=== PATIENT | female | born 1940 | race Caucasian/White ===

== ENCOUNTER 2018-05-09 20:35 | Inpatient (IN) | payer MEDICARE, BC ==
[~2018-05-09] VITALS: Ht 162.6 cm; Wt 123.0 kg
[~2018-05-09 20:35] MED LIST: AZIT250T82 PO
[2018-05-09] MEDS ORDERED: temazepam 15mg capsule PO PRN (21:00)
[2018-05-09] MEDS ORDERED: SPIR100T5 PO (21:09)
[2018-05-09] MEDS ORDERED: POTA20TA10 PO (21:09)
[2018-05-09] MEDS ORDERED: lidocaine 5% (21:09)
[2018-05-09] MEDS ORDERED: FLUO20CA39 PO (21:09)
[2018-05-09] MEDS ORDERED: TRAZ300T2 PO (21:09)
[2018-05-09] MEDS ORDERED: SIMV20TA5 PO (21:09)
[2018-05-09] MEDS ORDERED: ACET-3067 PO (21:09)
[2018-05-09] MEDS ORDERED: PANT40TA4 PO (21:09)
[2018-05-09] MEDS ORDERED: FURO-150 PO (21:09)
[2018-05-09] MEDS ORDERED: HYDROcodone/acetaminophen 10/325mg tab PO ONE ×2 (21:15→22:10)
[2018-05-09] MEDS ORDERED: morphine 4 MG/ML inj SYRINge IV ONE (21:15)
[2018-05-09 21:21] LABS: BASOPHILS # (AUTO) 0.1 X10'3 (0-0.2); BASOPHILS % (AUTO) 0.6 % (0-1); EOSINOPHILS % (AUTO) 0.5 % (0-6); HEMATOCRIT 31.3 % (35.0-45.0); HEMOGLOBIN 10.6 g/dl (12.0-16.0); LYMPHOCYTES # (AUTO) 2.1 X10'3 (1.1-4.8); LYMPHOCYTES % (AUTO) 23.8 % (21-51); MEAN CORPUSCULAR HEMOGLOBIN 30.1 PG (27.0-31.0); MEAN CORPUSCULAR VOLUME 88.7 FL (78-98); MEAN PLATELET VOLUME 8.5 FL (7.4-10.4); MONOCYTES # (AUTO) 0.8 X10'3 (0-0.9); MONOCYTES % (AUTO) 8.8 % (2-12); NEUTROPHILS # (AUTO) 5.9 X10'3 (1.8-7.7); NEUTROPHILS % (AUTO) 66.3 % (42-75); PLATELET COUNT 162 X10'3 (140-440); RED BLOOD COUNT 3.53 X10'6 (4.20-5.60); RED CELL DISTRIBUTION WIDTH 12.8 % (11.5-14.5); WHITE BLOOD COUNT 8.9 X10'3 (4.5-11.0)
[2018-05-09 21:32] LABS: ALANINE AMINOTRANSFERASE 22 U/L (12-78); ALBUMIN 3.4 G/DL (3.4-5.0); ALBUMIN/GLOBULIN RATIO 0.9 (1.1-1.5); ALKALINE PHOSPHATASE 113 IU/L (46-116); ANION GAP 7 (8-16); ASPARTATE AMINO TRANSFERASE 15 U/L (10-37); BILIRUBIN,TOTAL 0.3 MG/DL (0.1-1.0); BLOOD UREA NITROGEN 17 MG/DL (7-18); BUN/CREATININE RATIO 13.4 (6.6-38.0); CALCIUM 9.2 MG/DL (8.5-10.1); CHLORIDE 100 MMOL/L (99-107); CREATININE 1.27 MG/DL (0.40-0.90); GLUCOSE 122 MG/DL (70-104); POTASSIUM 3.6 MMOL/L (3.5-5.1); SODIUM 141 MMOL/L (135-145); TOTAL CARBON DIOXIDE 34.1 MMOL/L (24-32); TOTAL PROTEIN 7.1 G/DL (6.4-8.2); eGFR 41 ML/MIN
[2018-05-09 21:41] LABS: MAGNESIUM 1.6 MG/DL (1.5-2.4)
[2018-05-09 22:19] LABS: D-DIMER 4.26 MG/L FEU (0-0.50)
[2018-05-09] MEDS ORDERED: acetaminophen 650mg rectal suppository RC PRN (23:40)
[2018-05-09] MEDS ORDERED: HYDROmorphone 1 mg/ml syringe IV PRN ×2 (23:40)
[2018-05-09] MEDS ORDERED: mag hydrox/Alum hydrox/simeth 30ml oral suspension PO PRN (23:40)
[2018-05-09] MEDS ORDERED: diphenhydrAMINE 25mg capsule PO PRN (23:40)
[2018-05-09] MEDS ORDERED: ondansetron/PF 4mg/2ml inj IV PRN (23:40)
[2018-05-09] MEDS ORDERED: bisacodyl 10mg suppository rectal RC PRN (23:40)
[2018-05-09] MEDS ORDERED: magnesium 4gm in 100ml NS 100 ML IV PRN (23:40)
[2018-05-09] MEDS ORDERED: magnesium Cl slow-release 64mg tablet PO PRN (23:40)
[2018-05-09] MEDS ORDERED: metoclopramide 5 mg/ml inj IV PRN (23:40)
[2018-05-09] MEDS ORDERED: magnesium hydroxide 30ml (MOM) UD suspension PO PRN (23:40)
[2018-05-09] MEDS ORDERED: diphenhydrAMINE 50 mg/ml inj IV PRN (23:40)
[2018-05-09] MEDS ORDERED: acetaminophen 325mg tablet PO PRN ×2 (23:40)
[2018-05-09] MEDS ORDERED: magnesium 1gm/100ml D5W IVPB 100 ML IV PRN (23:40)
[2018-05-09] MEDS ORDERED: morphine 2 MG/ML inj. syringe IV PRN ×2 (23:40)
[2018-05-10] MEDS: LIDOcaine 5% patch TP SCH ×2 (00:09→23:50)
[2018-05-10] MEDS: normal saline 1000ml 1,000 ML IV SCH (00:09)
[2018-05-10 00:11] LABS: HEMOGLOBIN A1C 5.3 % (4.5-6.2)
[2018-05-10 00:18] LABS: LIPASE 144 U/L (73-393); PHOSPHORUS 3.5 MG/DL (2.3-4.5)
[2018-05-10 01:45] VITALS: BP 139/52
[2018-05-10] MEDS: HYDROcodone/acetaminophen 5mg/325mg tablet PO PRN ×3 (01:52→19:27)
[2018-05-10] MEDS ORDERED: enoxaparin 60mg/0.6ml syringe SUBCUT ONE ×2 (01:55→02:00)
[2018-05-10] MEDS ORDERED: acetaminophen w/codeine (60MG) #4 tablet PO SCH (02:00)
[2018-05-10 05:37] LABS: CHOL/HDL RATIO 2.2 (0.00-4.99); CHOLESTEROL 170 MG/DL (0-200); HDL CHOLESTEROL 78 MG/DL (35-60); LDL CHOLESTEROL 82 MG/DL (50-100); MAGNESIUM 1.8 MG/DL (1.5-2.4); TRIGLYCERIDES 39 MG/DL (20-135)
[2018-05-10 07:00] VITALS: BP 112/56
[2018-05-10] MEDS ORDERED: methylPREDNISolone sod succ 125mg/2ml vial IV SCH (08:00)
[2018-05-10] MEDS: CefTRIAXone/D5W-Rocephin 1gm 50 ML IV SCH ×2 (08:03→19:26)
[2018-05-10] MEDS: pantoprazole 40mg Tablet.DR PO SCH (08:05)
[2018-05-10] MEDS: docusate sod 100mg capsule PO SCH ×2 (08:05→19:27)
[2018-05-10] MEDS: FLUoxetine 20mg capsule PO SCH (08:06)
[2018-05-10] MEDS: aspirin 81mg tab.chew PO SCH (08:06)
[2018-05-10] MEDS: HYDROcodone/acetaminophen 10/325mg tab PO PRN (08:07)
[2018-05-10] MEDS: azithromycin/NS 500mg/250ml 250 ML IV SCH (08:49)
[2018-05-10 12:31] VITALS: BP 123/55
[2018-05-10] MEDS: ipratropium/albuterol 3ml nebule NEB SCH ×3 (15:05→23:17)
[2018-05-10 18:00] VITALS: BP 134/62
[2018-05-10] MEDS: lactobacillus rhamnosus 10,000 MMU CELLS/CAPSULE PO SCH (19:27)
[2018-05-10] MEDS: methylPREDNISolone sod succ 125mg/2ml vial IV SCH (19:28)
[2018-05-10] MEDS: atorvastatin 10mg tablet PO SCH (20:44)
[2018-05-10] MEDS: traZODone 150mg tablet PO SCH (22:06)
[2018-05-11] VITALS: BP 113/50
[2018-05-11] MEDS: HYDROcodone/acetaminophen 10/325mg tab PO PRN ×2 (01:00→14:24)
[2018-05-11] MEDS: ipratropium/albuterol 3ml nebule NEB SCH ×6 (03:00→23:02)
[2018-05-11] MEDS: HYDROcodone/acetaminophen 5mg/325mg tablet PO PRN (05:04)
[2018-05-11 07:00] VITALS: BP 143/53
[2018-05-11] MEDS: CefTRIAXone/D5W-Rocephin 1gm 50 ML IV SCH ×2 (07:30→20:05)
[2018-05-11] MEDS: azithromycin/NS 500mg/250ml 250 ML IV SCH (08:54)
[2018-05-11] MEDS: pantoprazole 40mg Tablet.DR PO SCH (09:00)
[2018-05-11] MEDS: lactobacillus rhamnosus 10,000 MMU CELLS/CAPSULE PO SCH ×2 (09:01→20:03)
[2018-05-11] MEDS: FLUoxetine 20mg capsule PO SCH (09:01)
[2018-05-11] MEDS: docusate sod 100mg capsule PO SCH ×2 (09:01→20:03)
[2018-05-11] MEDS: methylPREDNISolone sod succ 125mg/2ml vial IV SCH ×2 (09:03→20:05)
[2018-05-11] MEDS: aspirin 81mg tab.chew PO SCH (09:04)
[2018-05-11 12:03] VITALS: BP 131/53
[2018-05-11 20:00] VITALS: BP 112/37
[2018-05-11] MEDS: atorvastatin 10mg tablet PO SCH (20:04)
[2018-05-11] MEDS: traZODone 150mg tablet PO SCH (20:04)
[2018-05-11 20:20] VITALS: BP 134/54
[2018-05-11] MEDS: LIDOcaine 5% patch TP SCH (23:16)
[2018-05-11] MEDS: normal saline 1000ml 1,000 ML IV SCH (23:36)
[2018-05-12] VITALS: BP 123/41
[2018-05-12] MEDS: ipratropium/albuterol 3ml nebule NEB SCH ×6 (03:02→23:07)
[2018-05-12] MEDS: normal saline 1000ml 1,000 ML IV SCH (03:31)
[2018-05-12 05:14] LABS: BASOPHILS % (AUTO) 0.1 % (0-1); EOSINOPHILS # (AUTO) 0.1 X10'3 (0-0.9); HEMATOCRIT 28.4 % (35.0-45.0); HEMOGLOBIN 9.2 g/dl (12.0-16.0); LYMPHOCYTES # (AUTO) 0.6 X10'3 (1.1-4.8); LYMPHOCYTES % (AUTO) 8.5 % (21-51); MEAN CORPUSCULAR HEMOGLOBIN 28.9 PG (27.0-31.0); MEAN CORPUSCULAR HGB CONC 32.3 % (33.0-36.5); MEAN CORPUSCULAR VOLUME 89.4 FL (78-98); MEAN PLATELET VOLUME 8.7 FL (7.4-10.4); MONOCYTES # (AUTO) 0.2 X10'3 (0-0.9); MONOCYTES % (AUTO) 2.2 % (2-12); NEUTROPHILS # (AUTO) 6.6 X10'3 (1.8-7.7); NEUTROPHILS % (AUTO) 88.2 % (42-75); PLATELET COUNT 185 X10'3 (140-440); RED BLOOD COUNT 3.18 X10'6 (4.20-5.60); RED CELL DISTRIBUTION WIDTH 13.7 % (11.5-14.5); WHITE BLOOD COUNT 7.5 X10'3 (4.5-11.0)
[2018-05-12 05:32] LABS: ALBUMIN 2.7 G/DL (3.4-5.0); ANION GAP 7 (8-16); BLOOD UREA NITROGEN 23 MG/DL (7-18); CALCIUM 8.8 MG/DL (8.5-10.1); CHLORIDE 103 MMOL/L (99-107); GLUCOSE 161 MG/DL (70-104); MAGNESIUM 1.8 MG/DL (1.5-2.4); SODIUM 141 MMOL/L (135-145); TOTAL CARBON DIOXIDE 30.7 MMOL/L (24-32); eGFR 54 ML/MIN
[2018-05-12 07:11] VITALS: BP 125/44
[2018-05-12] MEDS: CefTRIAXone/D5W-Rocephin 1gm 50 ML IV SCH ×2 (07:16→20:46)
[2018-05-12] MEDS: methylPREDNISolone sod succ 125mg/2ml vial IV SCH ×2 (07:16→20:46)
[2018-05-12] MEDS: docusate sod 100mg capsule PO SCH ×2 (07:47→20:00)
[2018-05-12] MEDS: pantoprazole 40mg Tablet.DR PO SCH (07:48)
[2018-05-12] MEDS: lactobacillus rhamnosus 10,000 MMU CELLS/CAPSULE PO SCH ×2 (07:48→20:43)
[2018-05-12] MEDS: FLUoxetine 20mg capsule PO SCH (07:49)
[2018-05-12] MEDS: aspirin 81mg tab.chew PO SCH (07:49)
[2018-05-12] MEDS: azithromycin 250mg tablet PO SCH (07:50)
[2018-05-12] MEDS: emollient combination-Eucerin 250 ML LOTION TP SCH (08:00)
[2018-05-12 11:00] VITALS: BP 144/58
[2018-05-12] MEDS: HYDROcodone/acetaminophen 10/325mg tab PO PRN ×2 (14:35→20:43)
[2018-05-12 20:00] VITALS: BP 137/62
[2018-05-12] MEDS: atorvastatin 10mg tablet PO SCH (20:43)
[2018-05-12] MEDS: traZODone 150mg tablet PO SCH (20:44)
[2018-05-12] MEDS: heparin, porcine 5000 units/ml vial SQ SCH (20:45)
[2018-05-13] VITALS: BP 131/50
[2018-05-13] MEDS: LIDOcaine 5% patch TP SCH (00:05)
[2018-05-13] MEDS: ipratropium/albuterol 3ml nebule NEB SCH ×3 (03:00→11:29)
[2018-05-13] MEDS: HYDROcodone/acetaminophen 10/325mg tab PO PRN ×2 (03:23→09:30)
[2018-05-13] MEDS: normal saline 1000ml 1,000 ML IV SCH (03:24)
[2018-05-13 07:28] VITALS: BP 150/64
[2018-05-13] MEDS: emollient combination-Eucerin 250 ML LOTION TP SCH (08:00)
[2018-05-13] MEDS: docusate sod 100mg capsule PO SCH (08:00)
[2018-05-13] MEDS: methylPREDNISolone sod succ 125mg/2ml vial IV SCH (09:30)
[2018-05-13] MEDS: heparin, porcine 5000 units/ml vial SQ SCH (09:31)
[2018-05-13] MEDS: aspirin 81mg tab.chew PO SCH (09:31)
[2018-05-13] MEDS: azithromycin 250mg tablet PO SCH (09:32)
[2018-05-13] MEDS: CefTRIAXone/D5W-Rocephin 1gm 50 ML IV SCH (09:32)
[2018-05-13] MEDS: pantoprazole 40mg Tablet.DR PO SCH (09:32)
[2018-05-13] MEDS: FLUoxetine 20mg capsule PO SCH (09:32)
[2018-05-13] MEDS: lactobacillus rhamnosus 10,000 MMU CELLS/CAPSULE PO SCH (09:32)
[2018-05-13 11:34] VITALS: BP 131/60
[2018-05-13] MEDS ORDERED: LEVO500T2 PO (14:26)
[2018-05-13] MEDS ORDERED: PRED20TA PO (14:26)
== END 2018-05-13 16:07 | disposition home health service (06) | DRG 682 ==
LOC: ER 20:36 → ED HOLD 23:36 → SUR 3N 05-10 01:25
PROVIDERS: ADMIT Family Medicine; ATTEND Family Medicine
PROC: CB221ZZ Tomographic (Tomo) Nuclear Medicine Imaging of Lungs and Bronchi using Technetium 99m (Tc-99m) (ICD-10-PCS; principal; 2018-05-10)
DX: N17.9 Acute kidney failure, unspecified (principal); J18.9 Pneumonia, unspecified organism; J44.0 Chronic obstructive pulmonary disease with (acute) lower respiratory infection; J44.1 Chronic obstructive pulmonary disease with (acute) exacerbation; I50.32 Chronic diastolic (congestive) heart failure; J96.11 Chronic respiratory failure with hypoxia; Z68.42 Body mass index [BMI] 45.0-49.9, adult; F32.9 Major depressive disorder, single episode, unspecified; F41.9 Anxiety disorder, unspecified; G89.29 Other chronic pain; E66.01 Morbid (severe) obesity due to excess calories; E78.5 Hyperlipidemia, unspecified; M19.90 Unspecified osteoarthritis, unspecified site; M54.9 Dorsalgia, unspecified; E78.00 Pure hypercholesterolemia, unspecified; Z90.49 Acquired absence of other specified parts of digestive tract; Z90.2 Acquired absence of lung [part of]; Z90.710 Acquired absence of both cervix and uterus; Z99.81 Dependence on supplemental oxygen; Z91.040 Latex allergy status; Z91.018 Allergy to other foods; Z91.048 Other nonmedicinal substance allergy status; Z79.899 Other long term (current) drug therapy; Z85.118 Personal history of other malignant neoplasm of bronchus and lung; Z87.891 Personal history of nicotine dependence
CPT/HCPCS: 36415; 71045; 71250; 74176; 78582; 80048; 80053; 80061; 83036; 83690; 83735; 83880; 84100; 84443; 84484; 85025; 85379; 87070; 93005; 93306; 94640; 94760; 96374; 99285; A9539; A9540; J0456; J0696; J1644; J1650; J2270; J2930; J7030

== ENCOUNTER 2019-03-20 11:06 | Emergency (ER) | payer MEDICARE, BC ==
[~2019-03-20] VITALS: Ht 160 cm; Wt 109.0 kg
[~2019-03-20 11:06] MED LIST changes: +ACET-3067 PO; +AZI25OT PO; -AZIT250T82 PO; +BIMA2.5D EACHEYE; +CHOL100046 PO; +FLUO20CA39 PO; +FURO-150 PO; +IPRA3AMP9 NEB; +LIDO700A47 TOP; +PANT40TA4 PO; +POTA20TA10 PO; +SIMV20TA5 PO; +TRAZ300T2 PO
[2019-03-20 11:51] LABS: BASOPHILS # (AUTO) 0.1 X10'3 (0-0.2); BASOPHILS % (AUTO) 0.7 % (0-1); EOSINOPHILS # (AUTO) 0.3 X10'3 (0-0.9); EOSINOPHILS % (AUTO) 2.7 % (0-6); HEMATOCRIT 33.3 % (35.0-45.0); HEMOGLOBIN 10.9 g/dl (12.0-16.0); LYMPHOCYTES # (AUTO) 2.1 X10'3 (1.1-4.8); MEAN CORPUSCULAR HEMOGLOBIN 28.6 PG (27.0-31.0); MEAN CORPUSCULAR HGB CONC 32.6 g/dL (33.0-36.5); MEAN CORPUSCULAR VOLUME 87.5 FL (78-98); MEAN PLATELET VOLUME 7.5 FL (7.4-10.4); MONOCYTES # (AUTO) 0.8 X10'3 (0-0.9); MONOCYTES % (AUTO) 7.8 % (2-12); NEUTROPHILS # (AUTO) 6.4 X10'3 (1.8-7.7); NEUTROPHILS % (AUTO) 66.8 % (42-75); PLATELET COUNT 198 X10'3 (140-440); RED BLOOD COUNT 3.81 X10'6 (4.20-5.60); RED CELL DISTRIBUTION WIDTH 15.2 % (11.5-14.5); WHITE BLOOD COUNT 9.6 X10'3 (4.5-11.0)
[2019-03-20 12:03] LABS: ALANINE AMINOTRANSFERASE 26 U/L (12-78); ALBUMIN 2.8 G/DL (3.4-5.0); ALBUMIN/GLOBULIN RATIO 0.8 (1.1-1.5); ALKALINE PHOSPHATASE 91 IU/L (46-116); ANION GAP 4 (8-16); ASPARTATE AMINO TRANSFERASE 10 U/L (10-37); BILIRUBIN,TOTAL 0.2 MG/DL (0.1-1.0); BLOOD UREA NITROGEN 14 MG/DL (7-18); BUN/CREATININE RATIO 15.4 (6.6-38.0); CALCIUM 9.4 MG/DL (8.5-10.1); CHLORIDE 105 MMOL/L (99-107); CREATININE 0.91 MG/DL (0.40-0.90); GLUCOSE 95 MG/DL (70-104); POTASSIUM 4.2 MMOL/L (3.5-5.1); SODIUM 141 MMOL/L (135-145); TOTAL CARBON DIOXIDE 31.6 MMOL/L (24-32); TOTAL PROTEIN 6.3 G/DL (6.4-8.2); eGFR 60 ML/MIN
[2019-03-20 12:12] LABS: PARTIAL THROMBOPLASTIN TIME 26 SECONDS (22-32)
[2019-03-20] MEDS ORDERED: methylPREDNISolone sod succ 125mg/2ml vial IV ONE (12:25)
[2019-03-20] MEDS ORDERED: ipratropium/albuterol 3ml nebule NEB ONE (12:25)
[2019-03-20 12:44] LABS: D-DIMER 1.08 MG/L FEU (0-0.50)
[2019-03-20] MEDS ORDERED: SPIR100T5 PO (13:46)
[2019-03-20] MEDS ORDERED: FURO-149 PO (13:46)
[2019-03-20 13:55] VITALS: BP 110/48
[2019-03-20] MEDS ORDERED: PRE5T PO (13:55)
[2019-03-20] MEDS ORDERED: PRED20TA PO (14:23)
[2019-03-20] MEDS ORDERED: DOXY100C43 PO (14:23)
[2019-03-20] MEDS ORDERED: HYDROcodone/acetaminophen 10/325mg tab PO ONE (14:25)
== END 2019-03-20 15:11 | disposition home or self-care (01) ==
LOC: ER 11:06
DX: R04.2 Hemoptysis (principal); R07.89 Other chest pain; I50.9 Heart failure, unspecified; E78.00 Pure hypercholesterolemia, unspecified; J44.9 Chronic obstructive pulmonary disease, unspecified; M19.90 Unspecified osteoarthritis, unspecified site; G89.29 Other chronic pain; C34.90 Malignant neoplasm of unspecified part of unspecified bronchus or lung; F41.9 Anxiety disorder, unspecified; F32.9 Major depressive disorder, single episode, unspecified; Z90.49 Acquired absence of other specified parts of digestive tract; Z90.710 Acquired absence of both cervix and uterus; Z98.890 Other specified postprocedural states; Z87.891 Personal history of nicotine dependence; Z91.040 Latex allergy status; Z79.2 Long term (current) use of antibiotics; Z79.899 Other long term (current) drug therapy
CPT/HCPCS: 36415; 71045; 80053; 83880; 84145; 84484; 85025; 85379; 85610; 85730; 93005; 94640; 94760; 96374; 99284; J2930

== ENCOUNTER 2019-03-22 11:37 | Inpatient (IN) | payer MEDICARE, BC ==
[~2019-03-22] VITALS: Ht 160 cm; Wt 109.0 kg
[~2019-03-22 11:37] MED LIST changes: -AZI25OT PO; +DOXY100C43 PO; +FURO-149 PO; -FURO-150 PO; -IPRA3AMP9 NEB; +PRE5T PO; +PRED20TA PO; +SPIR100T5 PO
[2019-03-22 12:25] LABS: BASOPHILS % (AUTO) 0.2 % (0-1); EOSINOPHILS # (AUTO) 0.1 X10'3 (0-0.9); EOSINOPHILS % (AUTO) 0.6 % (0-6); HEMATOCRIT 34.4 % (35.0-45.0); HEMOGLOBIN 11.1 g/dl (12.0-16.0); LYMPHOCYTES # (AUTO) 1.1 X10'3 (1.1-4.8); LYMPHOCYTES % (AUTO) 7.9 % (21-51); MEAN CORPUSCULAR HEMOGLOBIN 27.9 PG (27.0-31.0); MEAN CORPUSCULAR HGB CONC 32.1 g/dL (33.0-36.5); MEAN CORPUSCULAR VOLUME 86.8 FL (78-98); MEAN PLATELET VOLUME 7.5 FL (7.4-10.4); MONOCYTES % (AUTO) 6.9 % (2-12); NEUTROPHILS # (AUTO) 11.9 X10'3 (1.8-7.7); NEUTROPHILS % (AUTO) 84.4 % (42-75); PLATELET COUNT 213 X10'3 (140-440); RED BLOOD COUNT 3.97 X10'6 (4.20-5.60); WHITE BLOOD COUNT 14.1 X10'3 (4.5-11.0)
[2019-03-22 12:35] LABS: PARTIAL THROMBOPLASTIN TIME 25 SECONDS (22-32)
[2019-03-22] MEDS ORDERED: acetaminophen 325mg tablet PO ONE (12:40)
[2019-03-22 12:43] LABS: ALANINE AMINOTRANSFERASE 27 U/L (12-78); ALBUMIN 2.7 G/DL (3.4-5.0); ALBUMIN/GLOBULIN RATIO 0.7 (1.1-1.5); ALKALINE PHOSPHATASE 107 IU/L (46-116); ANION GAP 8 (8-16); ASPARTATE AMINO TRANSFERASE 12 U/L (10-37); BILIRUBIN,TOTAL 0.4 MG/DL (0.1-1.0); BLOOD UREA NITROGEN 27 MG/DL (7-18); BUN/CREATININE RATIO 24.1 (6.6-38.0); CALCIUM 9.4 MG/DL (8.5-10.1); CHLORIDE 103 MMOL/L (99-107); CREATININE 1.12 MG/DL (0.40-0.90); GLUCOSE 101 MG/DL (70-104); POTASSIUM 3.7 MMOL/L (3.5-5.1); SODIUM 140 MMOL/L (135-145); TOTAL CARBON DIOXIDE 28.7 MMOL/L (24-32); TOTAL PROTEIN 6.7 G/DL (6.4-8.2); eGFR 47 ML/MIN
[2019-03-22] MEDS ORDERED: normal saline 1000ML IV soln IVB ONE (13:10)
[2019-03-22] MEDS ORDERED: levoFLOXACIN-Levaquin 750MG/D5 150 ML IV STA (13:10)
[2019-03-22] MEDS: normal saline 1000ml 1,000 ML IV SCH (14:14)
[2019-03-22] MEDS ORDERED: acetaminophen 325mg tablet PO PRN (14:15)
[2019-03-22] MEDS ORDERED: magnesium hydroxide 30ml (MOM) UD suspension PO PRN (14:15)
[2019-03-22] MEDS ORDERED: HYDROcodone/acetaminophen 5mg/325mg tablet PO PRN (14:15)
[2019-03-22] MEDS ORDERED: ondansetron/PF 4mg/2ml inj IV PRN (14:15)
[2019-03-22] MEDS ORDERED: mag hydrox/Alum hydrox/simeth 30ml oral suspension PO PRN (14:15)
[2019-03-22 14:30] LABS: CLARITY,URINE CLEAR (Clear); COLOR,URINE YELLOW (Yellow); GLUCOSE, URINE NEGATIVE (Neg); KETONES,URINE NEGATIVE (Neg); LEUKOCYTE ESTERASE ,URINE NEGATIVE (Neg); NITRITES, URINE NEGATIVE (Neg); OCCULT BLOOD,URINE TRACE-INTACT (Neg); PH,URINE 5.5 (4.8-8.0); PROTEIN,URINE TRACE mg/dl (Neg); UROBILINOGEN,URINE 0.2 E.U/dL (0.2-1.0)
[2019-03-22 14:31] LABS: UA COLLECTION TYPE CLN CATCH MIDSTREAM
--- NOTE | 2019-03-22 14:37 | NUR ---
Patient in room . I have received report from LEE Helms and had the opportunity to ask questions. Awaiting pt's arrival to PCU room 3016R.
[2019-03-22 14:47] LABS: BACTERIA,URINE NONE SEEN /HPF (Neg); MUCUS STRANDS FEW /LPF (Neg); RBC,URINE 0-2 /HPF (0-2); SQUAMOUS EPITHELIAL CELL,UR FEW /LPF (FEW); WBC,URINE NONE SEEN /HPF (0-4)
[2019-03-22 15:00] VITALS: BP 118/47
[2019-03-22] MEDS: ipratropium/albuterol 3ml nebule NEB SCH ×3 (15:00→23:10)
--- NOTE | 2019-03-22 15:00 | NUR ---
Pt arrived via gurney from ED. Pt transferred in to bed, vital signs obtained, tele box applied. Pt oriented to room including TV & call light use. Will continue to closely monitor.
[2019-03-22] MEDS: cefepime 1GM/NS ADD-VANTAGE 100 ML IV SCH ×2 (15:59→23:22)
--- NOTE | 2019-03-22 17:03 | NUR ---
PT WAS ORIGINALLY ADMITTED TO OTHER UNIT THIS RT UNAWARE OF SCHEDULED TX. PT NAD WILL BE OFFERED TX AT 1900 Addendum: 03/22/19 at 1704 by Flor Murray RT Amended: Links added.
--- NOTE | 2019-03-22 17:34 | NUR ---
Paged Dr. Woods re pain meds. PAGER ID: [phone] MESSAGE: Jaguar Luana Owens [id number]. Can we get more pain meds for her? Thanks! Slime HOWARD [phone]
--- NOTE | 2019-03-22 18:45 | NUR ---
Problems reprioritized. Patient report given, questions answered & plan of care reviewed with LEE Garcia.
--- NOTE | 2019-03-22 18:53 | NUR ---
Patient in room PCU 3014. I have received report from LEE Palencia and had the opportunity to ask questions and assume patient care.
[2019-03-22 19:00] VITALS: BP 112/48
--- NOTE | 2019-03-22 20:48 | NUR ---
sent to [facility] MESSAGE: room 3014B, Roman Craft: Patient states Leary 5/325 mg tab does not help pain. Her pain is at 7 out of 10. Can she have Leary 10/325mg for severe pain? Thank you, Radha [phone] (180 character message out of a maximum of 240)
[2019-03-22] MEDS: heparin, porcine 5000 units/ml vial SQ SCH (20:57)
[2019-03-22] MEDS: HYDROcodone/acetaminophen 10/325mg tab PO PRN (20:58)
[2019-03-22 23:00] VITALS: BP 119/50
--- NOTE | 2019-03-22 23:33 | NUR ---
sent to [facility] MESSAGE: room 3014B, Luana Owens: Med rec not addressed by daytime hospitalist. Can you address this patient's Trazodone? She is asking to take it. Thank you, Radha [phone] (167 character message out of a maximum of 240)
[2019-03-23] MEDS: traZODone 150mg tablet PO SCH ×2 (00:27→21:00)
--- NOTE | 2019-03-23 01:32 | NUR ---
Patient refused 12 hour troponin.
[2019-03-23] MEDS: HYDROcodone/acetaminophen 10/325mg tab PO PRN ×3 (02:39→17:43)
[2019-03-23] MEDS: ipratropium/albuterol 3ml nebule NEB SCH ×6 (03:00→23:00)
--- NOTE | 2019-03-23 03:05 | NUR ---
Patient refused 0300 vital signs.
[2019-03-23] MEDS: normal saline 1000ml 1,000 ML IV SCH (04:32)
[2019-03-23 05:44] LABS: ALBUMIN 2.1 G/DL (3.4-5.0); ANION GAP 7 (8-16); BLOOD UREA NITROGEN 25 MG/DL (7-18); CALCIUM 8.5 MG/DL (8.5-10.1); CHLORIDE 107 MMOL/L (99-107); GLUCOSE 118 MG/DL (70-104); SODIUM 142 MMOL/L (135-145); eGFR 54 ML/MIN
[2019-03-23 06:00] VITALS: BP 102/47
[2019-03-23 06:21] LABS: BASOPHILS % (AUTO) 0.2 % (0-1); EOSINOPHILS # (AUTO) 0.1 X10'3 (0-0.9); EOSINOPHILS % (AUTO) 0.8 % (0-6); HEMATOCRIT 29.5 % (35.0-45.0); HEMOGLOBIN 9.6 g/dl (12.0-16.0); LYMPHOCYTES # (AUTO) 1.3 X10'3 (1.1-4.8); LYMPHOCYTES % (AUTO) 10.3 % (21-51); MEAN CORPUSCULAR HEMOGLOBIN 28.6 PG (27.0-31.0); MEAN CORPUSCULAR HGB CONC 32.4 g/dL (33.0-36.5); MEAN CORPUSCULAR VOLUME 88.2 FL (78-98); MEAN PLATELET VOLUME 8.6 FL (7.4-10.4); MONOCYTES % (AUTO) 8.4 % (2-12); NEUTROPHILS % (AUTO) 80.3 % (42-75); PLATELET COUNT 177 X10'3 (140-440); RED BLOOD COUNT 3.35 X10'6 (4.20-5.60); RED CELL DISTRIBUTION WIDTH 15.4 % (11.5-14.5); WHITE BLOOD COUNT 12.5 X10'3 (4.5-11.0)
--- NOTE | 2019-03-23 06:30 | NUR ---
Patient in room PCU 3014. I have received report from LEE OVALLE and had the opportunity to ask questions and assume patient care.
--- NOTE | 2019-03-23 07:02 | NUR ---
Problems reprioritized. Patient report given, questions answered & plan of care reviewed with LEE Rosado.
--- NOTE | 2019-03-23 07:13 | NUR ---
PAGER ID: [phone] MESSAGE: DR. AMIN, [id number], NOW REQUIRING 5L/NC FOR SAT OF 88%. TOMA 3497/4900. TY
[2019-03-23] MEDS ORDERED: furosemide 10 MG/1 ML 10ml inj IV ONE (07:20)
[2019-03-23] MEDS: cefepime 1GM/NS ADD-VANTAGE 100 ML IV SCH ×3 (07:41→23:52)
[2019-03-23] MEDS: heparin, porcine 5000 units/ml vial SQ SCH ×2 (07:42→21:02)
[2019-03-23 11:00] VITALS: BP 114/48
[2019-03-23 15:00] VITALS: BP 118/50
--- NOTE | 2019-03-23 18:13 | NUR ---
Problems reprioritized. Patient report given, questions answered & plan of care reviewed with LEE OVALLE.
--- NOTE | 2019-03-23 18:33 | NUR ---
Patient in room PCU 3014. I have received report from LEE Rosado and had the opportunity to ask questions and assume patient care.
[2019-03-23 19:00] VITALS: BP 140/50
[2019-03-23] MEDS ORDERED: non-formulary drug (Trazodone HCl 1 TAB) PO SCH (21:00)
[2019-03-23] MEDS: latanoprost 0.005% 2.5ml ophthalmic drops EACHEYE SCH (21:00)
[2019-03-23] MEDS: potassium Cl 20 mEq SR tablet PO SCH (21:01)
[2019-03-23] MEDS: lactobacillus rhamnosus 10,000 MMU CELLS/CAPSULE PO SCH (21:01)
[2019-03-23] MEDS: atorvastatin 10mg tablet PO SCH (21:01)
[2019-03-23] MEDS ORDERED: traZODone 150mg tablet PO SCH (23:00)
[2019-03-23 23:03] VITALS: BP 137/49
[2019-03-24] MEDS: HYDROcodone/acetaminophen 10/325mg tab PO PRN ×3 (00:27→15:19)
[2019-03-24 03:00] VITALS: BP 106/46
[2019-03-24] MEDS: ipratropium/albuterol 3ml nebule NEB SCH ×5 (03:00→23:21)
[2019-03-24 05:22] LABS: ALBUMIN 1.9 G/DL (3.4-5.0); ANION GAP 6 (8-16); BASOPHILS % (AUTO) 0.5 % (0-1); BLOOD UREA NITROGEN 20 MG/DL (7-18); BUN/CREATININE RATIO 20.2 (6.6-38.0); CALCIUM 8.9 MG/DL (8.5-10.1); CHLORIDE 106 MMOL/L (99-107); CREATININE 0.99 MG/DL (0.40-0.90); EOSINOPHILS # (AUTO) 0.2 X10'3 (0-0.9); EOSINOPHILS % (AUTO) 2.7 % (0-6); GLUCOSE 106 MG/DL (70-104); HEMATOCRIT 28.6 % (35.0-45.0); HEMOGLOBIN 9.2 g/dl (12.0-16.0); LYMPHOCYTES # (AUTO) 1.4 X10'3 (1.1-4.8); LYMPHOCYTES % (AUTO) 17.1 % (21-51); MEAN CORPUSCULAR HEMOGLOBIN 28.3 PG (27.0-31.0); MEAN CORPUSCULAR HGB CONC 32.1 g/dL (33.0-36.5); MEAN CORPUSCULAR VOLUME 88.2 FL (78-98); MONOCYTES # (AUTO) 0.5 X10'3 (0-0.9); MONOCYTES % (AUTO) 5.9 % (2-12); NEUTROPHILS # (AUTO) 6.1 X10'3 (1.8-7.7); NEUTROPHILS % (AUTO) 73.8 % (42-75); PLATELET COUNT 168 X10'3 (140-440); POTASSIUM 4.2 MMOL/L (3.5-5.1); RED BLOOD COUNT 3.24 X10'6 (4.20-5.60); RED CELL DISTRIBUTION WIDTH 15.6 % (11.5-14.5); SODIUM 141 MMOL/L (135-145); TOTAL CARBON DIOXIDE 28.8 MMOL/L (24-32); WHITE BLOOD COUNT 8.3 X10'3 (4.5-11.0); eGFR 54 ML/MIN
--- NOTE | 2019-03-24 06:18 | NUR ---
Problems reprioritized. Patient report given, questions answered & plan of care reviewed with inderjit Chauhan.
--- NOTE | 2019-03-24 06:34 | NUR ---
Patient in room PCU 3014. I have received report from Radha HOWARD and had the opportunity to ask questions and assume patient care.
[2019-03-24 07:00] VITALS: BP 118/47
[2019-03-24] MEDS: lactobacillus rhamnosus 10,000 MMU CELLS/CAPSULE PO SCH ×2 (07:58→20:42)
[2019-03-24] MEDS: cefepime 1GM/NS ADD-VANTAGE 100 ML IV SCH ×3 (07:58→23:22)
[2019-03-24] MEDS: vitamin D (cholecalciferol) 1,000 unit tablet PO SCH (07:58)
[2019-03-24] MEDS: furosemide 40mg tablet PO SCH (07:59)
[2019-03-24] MEDS: FLUoxetine 20mg capsule PO SCH (07:59)
[2019-03-24] MEDS: potassium Cl 20 mEq SR tablet PO SCH ×2 (07:59→20:43)
[2019-03-24] MEDS: spironolactone 25 MG tablet PO SCH (07:59)
[2019-03-24] MEDS: pantoprazole 40mg Tablet.DR PO SCH (07:59)
[2019-03-24] MEDS: heparin, porcine 5000 units/ml vial SQ SCH ×2 (08:00→20:44)
[2019-03-24] MEDS: LIDOcaine 5% patch TP SCH (08:00)
[2019-03-24 11:00] VITALS: BP 104/40
[2019-03-24 15:00] VITALS: BP 144/65
--- NOTE | 2019-03-24 18:13 | NUR ---
Problems reprioritized. Patient report given, questions answered & plan of care reviewed with Christel HOWARD.
--- NOTE | 2019-03-24 18:35 | NUR ---
Patient in room PCU 3014. I have received report from April HOWARD and had the opportunity to ask questions and assume patient care.
[2019-03-24 19:00] VITALS: BP 120/44
[2019-03-24] MEDS: atorvastatin 10mg tablet PO SCH (20:43)
[2019-03-24 23:00] VITALS: BP 112/53
[2019-03-24] MEDS ORDERED: traZODone 150mg tablet PO SCH (23:00)
[2019-03-24] MEDS: traZODone 150mg tablet PO SCH (23:00)
[2019-03-24] MEDS: latanoprost 0.005% 2.5ml ophthalmic drops EACHEYE SCH (23:01)
[2019-03-25 02:00] VITALS: BP 133/52
[2019-03-25] MEDS: ipratropium/albuterol 3ml nebule NEB SCH ×5 (03:00→20:35)
[2019-03-25 05:44] LABS: ALBUMIN 1.9 G/DL (3.4-5.0); ANION GAP 7 (8-16); BLOOD UREA NITROGEN 22 MG/DL (7-18); CALCIUM 9.1 MG/DL (8.5-10.1); CHLORIDE 103 MMOL/L (99-107); GLUCOSE 114 MG/DL (70-104); POTASSIUM 4.3 MMOL/L (3.5-5.1); SODIUM 139 MMOL/L (135-145); TOTAL CARBON DIOXIDE 29.3 MMOL/L (24-32); eGFR 54 ML/MIN
[2019-03-25 05:58] LABS: BASOPHILS # (AUTO) 0.1 X10'3 (0-0.2); BASOPHILS % (AUTO) 0.7 % (0-1); EOSINOPHILS # (AUTO) 0.2 X10'3 (0-0.9); EOSINOPHILS % (AUTO) 2.9 % (0-6); HEMATOCRIT 28.3 % (35.0-45.0); HEMOGLOBIN 9.3 g/dl (12.0-16.0); LYMPHOCYTES # (AUTO) 1.5 X10'3 (1.1-4.8); LYMPHOCYTES % (AUTO) 17.4 % (21-51); MEAN CORPUSCULAR HEMOGLOBIN 28.9 PG (27.0-31.0); MEAN CORPUSCULAR HGB CONC 32.9 g/dL (33.0-36.5); MEAN CORPUSCULAR VOLUME 87.7 FL (78-98); MEAN PLATELET VOLUME 8.6 FL (7.4-10.4); MONOCYTES # (AUTO) 0.6 X10'3 (0-0.9); MONOCYTES % (AUTO) 6.6 % (2-12); NEUTROPHILS # (AUTO) 6.1 X10'3 (1.8-7.7); NEUTROPHILS % (AUTO) 72.4 % (42-75); PLATELET COUNT 183 X10'3 (140-440); RED BLOOD COUNT 3.23 X10'6 (4.20-5.60); RED CELL DISTRIBUTION WIDTH 14.9 % (11.5-14.5); WHITE BLOOD COUNT 8.5 X10'3 (4.5-11.0)
[2019-03-25 06:00] VITALS: BP 122/52
--- NOTE | 2019-03-25 06:17 | NUR ---
Problems reprioritized. Patient report given, questions answered & plan of care reviewed with April HOWARD.
[2019-03-25] MEDS: LIDOcaine 5% patch TP SCH (08:00)
[2019-03-25] MEDS: cefepime 1GM/NS ADD-VANTAGE 100 ML IV SCH ×2 (08:54→17:15)
[2019-03-25] MEDS: heparin, porcine 5000 units/ml vial SQ SCH ×2 (08:54→20:27)
[2019-03-25] MEDS: FLUoxetine 20mg capsule PO SCH (08:55)
[2019-03-25] MEDS: vitamin D (cholecalciferol) 1,000 unit tablet PO SCH (08:55)
[2019-03-25] MEDS: pantoprazole 40mg Tablet.DR PO SCH (08:55)
[2019-03-25] MEDS: spironolactone 25 MG tablet PO SCH (08:55)
[2019-03-25] MEDS: lactobacillus rhamnosus 10,000 MMU CELLS/CAPSULE PO SCH ×2 (08:55→20:27)
[2019-03-25] MEDS: furosemide 40mg tablet PO SCH (08:55)
[2019-03-25] MEDS: potassium Cl 20 mEq SR tablet PO SCH ×2 (08:55→20:27)
[2019-03-25] MEDS: HYDROcodone/acetaminophen 10/325mg tab PO PRN ×3 (09:02→22:29)
[2019-03-25 11:00] VITALS: BP 134/32
[2019-03-25 15:00] VITALS: BP 134/48
--- NOTE | 2019-03-25 17:22 | NUR ---
Sent page to Dr. Woods: PAGER ID: [phone] MESSAGE: [phone]: Patient states her pain as 02/04, received Spencer 75 mins ago. Can she have a one time order for breakthrough pain? She said she waited too long to ask for the PRN Spencer. Thanks, April [phone]
[2019-03-25 18:00] VITALS: BP 113/50
--- NOTE | 2019-03-25 18:19 | NUR ---
Patient in room PCU 3014. I have received report from Paco HOWARD and had the opportunity to ask questions and assume patient care.
--- NOTE | 2019-03-25 18:25 | NUR ---
Patient in room PCU 3014. I have received report from April HOWARD and had the opportunity to ask questions and assume patient care.
--- NOTE | 2019-03-25 19:14 | NUR ---
pt Ilda Owens dx with pneumonia and hemotypsis c/o generalized pain 7/10 on over her body. She got Woodland 10 @1700, and really want something to help her. Thanks, Christel HOWARD [phone] Addendum: 03/25/19 at 1914 by Christel Mark RN PAGER ID: [phone] MESSAGE: pt Ilda Owens dx with pneumonia and hemotypsis c/o generalized pain 7/10 on over her body. She got Woodland 10 @1700, and really want something to help her. Thanks, Christel HOWARD [phone]
[2019-03-25] MEDS ORDERED: morphine 2 MG/ML inj. syringe IV PRN (19:30)
--- NOTE | 2019-03-25 20:12 | NUR ---
Patient on phone didnt want SVN @ this time.
[2019-03-25] MEDS: atorvastatin 10mg tablet PO SCH (20:27)
[2019-03-25] MEDS: traZODone 150mg tablet PO SCH (22:26)
[2019-03-25] MEDS: latanoprost 0.005% 2.5ml ophthalmic drops EACHEYE SCH (22:29)
[2019-03-25 23:00] VITALS: BP 125/43
[2019-03-26] MEDS: ipratropium/albuterol 3ml nebule NEB SCH ×7 (00:31→23:13)
[2019-03-26] MEDS: cefepime 1GM/NS ADD-VANTAGE 100 ML IV SCH ×4 (01:10→23:15)
[2019-03-26 03:00] VITALS: BP 114/37
[2019-03-26 05:21] LABS: ANION GAP 5 (8-16); BLOOD UREA NITROGEN 22 MG/DL (7-18); BUN/CREATININE RATIO 20.8 (6.6-38.0); CALCIUM 10.1 MG/DL (8.5-10.1); CHLORIDE 104 MMOL/L (99-107); CREATININE 1.06 MG/DL (0.40-0.90); GLUCOSE 100 MG/DL (70-104); POTASSIUM 4.5 MMOL/L (3.5-5.1); SODIUM 141 MMOL/L (135-145); eGFR 50 ML/MIN
[2019-03-26 05:24] LABS: BASOPHILS # (AUTO) 0.1 X10'3 (0-0.2); BASOPHILS % (AUTO) 0.7 % (0-1); EOSINOPHILS # (AUTO) 0.3 X10'3 (0-0.9); EOSINOPHILS % (AUTO) 4.4 % (0-6); HEMATOCRIT 29.5 % (35.0-45.0); HEMOGLOBIN 9.7 g/dl (12.0-16.0); LYMPHOCYTES # (AUTO) 1.7 X10'3 (1.1-4.8); LYMPHOCYTES % (AUTO) 23.2 % (21-51); MEAN CORPUSCULAR HEMOGLOBIN 28.6 PG (27.0-31.0); MEAN CORPUSCULAR VOLUME 86.8 FL (78-98); MEAN PLATELET VOLUME 7.4 FL (7.4-10.4); MONOCYTES # (AUTO) 0.6 X10'3 (0-0.9); MONOCYTES % (AUTO) 7.9 % (2-12); NEUTROPHILS # (AUTO) 4.6 X10'3 (1.8-7.7); NEUTROPHILS % (AUTO) 63.8 % (42-75); PLATELET COUNT 222 X10'3 (140-440); RED CELL DISTRIBUTION WIDTH 15.5 % (11.5-14.5); WHITE BLOOD COUNT 7.3 X10'3 (4.5-11.0)
--- NOTE | 2019-03-26 06:06 | NUR ---
Problems reprioritized. Patient report given, questions answered & plan of care reviewed with Edison HOWARD.
--- NOTE | 2019-03-26 06:28 | NUR ---
Patient in room PCU 3014. I have received report from Christel HOWARD and had the opportunity to ask questions and assume patient care.
[2019-03-26 07:00] VITALS: BP 105/36
[2019-03-26] MEDS: HYDROcodone/acetaminophen 10/325mg tab PO PRN ×4 (07:42→22:40)
[2019-03-26] MEDS: vitamin D (cholecalciferol) 1,000 unit tablet PO SCH (07:43)
[2019-03-26] MEDS: spironolactone 25 MG tablet PO SCH (07:43)
[2019-03-26] MEDS: potassium Cl 20 mEq SR tablet PO SCH ×2 (07:43→20:59)
[2019-03-26] MEDS: FLUoxetine 20mg capsule PO SCH (07:43)
[2019-03-26] MEDS: furosemide 40mg tablet PO SCH (07:43)
[2019-03-26] MEDS: lactobacillus rhamnosus 10,000 MMU CELLS/CAPSULE PO SCH ×2 (07:43→20:59)
[2019-03-26] MEDS: pantoprazole 40mg Tablet.DR PO SCH (07:43)
[2019-03-26] MEDS: heparin, porcine 5000 units/ml vial SQ SCH ×2 (07:44→21:00)
[2019-03-26] MEDS: LIDOcaine 5% patch TP SCH (08:00)
--- NOTE | 2019-03-26 09:43 | NUR ---
2 attempts made to giv pt 0700 tx. first att. pt was eating and request i come back. second attempt pt was having a bath. Addendum: 03/26/19 at 0944 by Flor Murray RT Amended: Links added.
[2019-03-26 11:00] VITALS: BP 115/48
[2019-03-26 15:00] VITALS: BP 99/46
--- NOTE | 2019-03-26 17:16 | NUR ---
Problems reprioritized. Patient report given, questions answered & plan of care reviewed with Rene HOWARD.
--- NOTE | 2019-03-26 17:19 | NUR ---
Patient in room PCU 3028. I have received report from April HOWARD and had the opportunity to ask questions and assume patient care.
[2019-03-26 18:00] VITALS: BP 106/51
--- NOTE | 2019-03-26 18:45 | NUR ---
Patient in room PCU 3014. I have received report from Taylor HOWARD and had the opportunity to ask questions and assume patient care.
[2019-03-26] MEDS: atorvastatin 10mg tablet PO SCH (20:59)
[2019-03-26 22:00] VITALS: BP 98/43
[2019-03-26] MEDS: latanoprost 0.005% 2.5ml ophthalmic drops EACHEYE SCH (22:39)
[2019-03-26] MEDS: traZODone 150mg tablet PO SCH (22:40)
[2019-03-27] MEDS: ipratropium/albuterol 3ml nebule NEB SCH ×3 (03:00→11:34)
[2019-03-27 05:49] LABS: BASOPHILS # (AUTO) 0.1 X10'3 (0-0.2); BASOPHILS % (AUTO) 1.1 % (0-1); EOSINOPHILS # (AUTO) 0.2 X10'3 (0-0.9); EOSINOPHILS % (AUTO) 3.6 % (0-6); HEMATOCRIT 30.5 % (35.0-45.0); LYMPHOCYTES # (AUTO) 1.5 X10'3 (1.1-4.8); LYMPHOCYTES % (AUTO) 22.9 % (21-51); MEAN CORPUSCULAR HEMOGLOBIN 28.5 PG (27.0-31.0); MEAN CORPUSCULAR HGB CONC 32.8 g/dL (33.0-36.5); MEAN CORPUSCULAR VOLUME 86.9 FL (78-98); MEAN PLATELET VOLUME 7.4 FL (7.4-10.4); MONOCYTES # (AUTO) 0.6 X10'3 (0-0.9); MONOCYTES % (AUTO) 9.3 % (2-12); NEUTROPHILS # (AUTO) 4.1 X10'3 (1.8-7.7); NEUTROPHILS % (AUTO) 63.1 % (42-75); PLATELET COUNT 239 X10'3 (140-440); RED BLOOD COUNT 3.51 X10'6 (4.20-5.60); RED CELL DISTRIBUTION WIDTH 15.4 % (11.5-14.5); WHITE BLOOD COUNT 6.6 X10'3 (4.5-11.0)
[2019-03-27 05:54] LABS: ALBUMIN 2.1 G/DL (3.4-5.0); ANION GAP 6 (8-16); BLOOD UREA NITROGEN 31 MG/DL (7-18); BUN/CREATININE RATIO 22.3 (6.6-38.0); CALCIUM 9.4 MG/DL (8.5-10.1); CHLORIDE 102 MMOL/L (99-107); CREATININE 1.39 MG/DL (0.40-0.90); GLUCOSE 140 MG/DL (70-104); POTASSIUM 4.9 MMOL/L (3.5-5.1); SODIUM 140 MMOL/L (135-145); TOTAL CARBON DIOXIDE 31.6 MMOL/L (24-32); eGFR 37 ML/MIN
[2019-03-27 06:00] VITALS: BP 118/51
--- NOTE | 2019-03-27 06:00 | NUR ---
Patient in room PCU 3014. I have received report from Rene HOWARD and had the opportunity to ask questions and assume patient care.
--- NOTE | 2019-03-27 06:15 | NUR ---
Problems reprioritized. Patient report given, questions answered & plan of care reviewed with Casie Lara.
[2019-03-27] MEDS: HYDROcodone/acetaminophen 10/325mg tab PO PRN ×2 (09:11→13:12)
[2019-03-27] MEDS: furosemide 40mg tablet PO SCH (09:12)
[2019-03-27] MEDS: lactobacillus rhamnosus 10,000 MMU CELLS/CAPSULE PO SCH (09:13)
[2019-03-27] MEDS: spironolactone 25 MG tablet PO SCH (09:13)
[2019-03-27] MEDS: vitamin D (cholecalciferol) 1,000 unit tablet PO SCH (09:13)
[2019-03-27] MEDS: pantoprazole 40mg Tablet.DR PO SCH (09:13)
[2019-03-27] MEDS: potassium Cl 20 mEq SR tablet PO SCH (09:13)
[2019-03-27] MEDS: FLUoxetine 20mg capsule PO SCH (09:13)
[2019-03-27] MEDS: heparin, porcine 5000 units/ml vial SQ SCH (09:14)
[2019-03-27] MEDS: cefepime 1GM/NS ADD-VANTAGE 100 ML IV SCH (09:15)
[2019-03-27 11:00] VITALS: BP 109/40
--- NOTE | 2019-03-27 13:20 | NUR ---
Report called to Navya CASTILLO at [facility]. Patient has a picker / packer time of 1345 today.
--- NOTE | 2019-03-27 13:32 | NUR ---
Pt requesting breathing tx for SOB, paged respiratory for PRN tx.
--- NOTE | 2019-03-27 13:50 | NUR ---
Patient transferred to [facility]. All personal belongings returned to patient. Patient left with PIV to Right forearm intact and patent. Tele box removed and returned to regional telecommunications specialist room. Patient wheeled out via wheelchair by [facility] personnel to be transported via [facility] to [facility]. Packet sent with [facility] staff.
== END 2019-03-27 13:50 | DRG 871 ==
LOC: ER 11:38 → UNDOADMIN 14:42 → ORTHO 4S 14:42 → PCU 3S 15:26 → CMPBEDREQ 03-23 19:34
PROVIDERS: ADMIT Family Medicine; ATTEND Internal Medicine
DX: A41.9 Sepsis, unspecified organism (principal); J69.0 Pneumonitis due to inhalation of food and vomit; J96.21 Acute and chronic respiratory failure with hypoxia; E43 Unspecified severe protein-calorie malnutrition; Z68.41 Body mass index [BMI] 40.0-44.9, adult; I50.9 Heart failure, unspecified; J44.9 Chronic obstructive pulmonary disease, unspecified; D64.9 Anemia, unspecified; E66.01 Morbid (severe) obesity due to excess calories; F32.9 Major depressive disorder, single episode, unspecified; F41.9 Anxiety disorder, unspecified; G89.29 Other chronic pain; W06.XXXA Fall from bed, initial encounter; M19.90 Unspecified osteoarthritis, unspecified site; M54.9 Dorsalgia, unspecified; E78.00 Pure hypercholesterolemia, unspecified; E78.5 Hyperlipidemia, unspecified; N18.3 Chronic kidney disease, stage 3 (moderate); N64.4 Mastodynia; Z79.899 Other long term (current) drug therapy; Z85.118 Personal history of other malignant neoplasm of bronchus and lung; Z90.2 Acquired absence of lung [part of]; Z90.49 Acquired absence of other specified parts of digestive tract; Z90.710 Acquired absence of both cervix and uterus; Y93.89 Activity, other specified; Y92.89 Other specified places as the place of occurrence of the external cause; Y99.8 Other external cause status; Z91.040 Latex allergy status
CPT/HCPCS: 36415; 70450; 71045; 72125; 80048; 80053; 81001; 83605; 83880; 84145; 84484; 85025; 85379; 85610; 85730; 87040; 87081; 93005; 94640; 94760; 96365; 97110; 97161; 97530; 99285; G0378; J0692; J1644; J1940; J1956; J2270; J7030

== ENCOUNTER 2019-04-25 18:02 | Inpatient (IN) | payer MEDICARE, BC ==
[~2019-04-25] VITALS: Ht 152.4 cm; Wt 114.7 kg
[~2019-04-25 18:02] MED LIST changes: -DOXY100C43 PO; -PRED20TA PO
[2019-04-25] MEDS ORDERED: acetaminophen 325mg tablet PO STA (18:16)
[2019-04-25] MEDS ORDERED: ipratropium/albuterol 3ml nebule NEB ONE (18:20)
[2019-04-25] MEDS ORDERED: CefTRIAXone 2gm/D5W 50ml 50 ML IV ONE (18:20)
[2019-04-25] MEDS ORDERED: vancomycin/NS 1 GM ADD-VANTAGE 250 ML IV ONE (18:25)
[2019-04-25] MEDS ORDERED: cefepime 1GM in D5W 50mL 50 ML IV ONE (18:25)
[2019-04-25] MEDS ORDERED: cefepime 1GM/NS ADD-VANTAGE 100 ML IV ONE (18:30)
[2019-04-25 18:46] LABS: BASOPHILS # (AUTO) 0.1 X10'3 (0-0.2); BASOPHILS % (AUTO) 0.9 % (0-1); EOSINOPHILS # (AUTO) 0.2 X10'3 (0-0.9); EOSINOPHILS % (AUTO) 1.2 % (0-6); HEMATOCRIT 41.3 % (35.0-45.0); HEMOGLOBIN 13.6 g/dl (12.0-16.0); LYMPHOCYTES # (AUTO) 2.2 X10'3 (1.1-4.8); MEAN CORPUSCULAR HEMOGLOBIN 29.1 PG (27.0-31.0); MEAN CORPUSCULAR VOLUME 88.4 FL (78-98); MONOCYTES # (AUTO) 0.6 X10'3 (0-0.9); MONOCYTES % (AUTO) 4.8 % (2-12); NEUTROPHILS # (AUTO) 9.3 X10'3 (1.8-7.7); NEUTROPHILS % (AUTO) 75.1 % (42-75); PLATELET COUNT 147 X10'3 (140-440); RED BLOOD COUNT 4.67 X10'6 (4.20-5.60); RED CELL DISTRIBUTION WIDTH 18.4 % (11.5-14.5); WHITE BLOOD COUNT 12.4 X10'3 (4.5-11.0)
[2019-04-25] MEDS ORDERED: ringers solution, lacted 1,000 ML IV ONE (18:55)
[2019-04-25] MEDS ORDERED: iohexol 350MG/ML 100ml bottle IV ONE (18:56)
[2019-04-25 18:58] LABS: ALANINE AMINOTRANSFERASE 46 U/L (12-78); ALBUMIN 3.1 G/DL (3.4-5.0); ALBUMIN/GLOBULIN RATIO 0.8 (1.1-1.5); ALKALINE PHOSPHATASE 105 IU/L (46-116); ANION GAP 9 (8-16); ASPARTATE AMINO TRANSFERASE 16 U/L (10-37); BILIRUBIN,TOTAL 0.4 MG/DL (0.1-1.0); BLOOD UREA NITROGEN 36 MG/DL (7-18); BUN/CREATININE RATIO 28.1 (6.6-38.0); CALCIUM 9.5 MG/DL (8.5-10.1); CHLORIDE 100 MMOL/L (99-107); CREATININE 1.28 MG/DL (0.40-0.90); GLUCOSE 135 MG/DL (70-104); POTASSIUM 4.1 MMOL/L (3.5-5.1); SODIUM 139 MMOL/L (135-145); TOTAL CARBON DIOXIDE 30.4 MMOL/L (24-32); TOTAL PROTEIN 6.8 G/DL (6.4-8.2); eGFR 40 ML/MIN
[2019-04-25] MEDS ORDERED: CHOL10002 PO (18:58)
[2019-04-25] MEDS ORDERED: HYDR-3972 PO (18:58)
[2019-04-25] MEDS ORDERED: DOCU100C41 PO (18:58)
[2019-04-25] MEDS ORDERED: PRAV40TA3 PO (18:58)
[2019-04-25] MEDS ORDERED: NYST1000 PO (18:58)
[2019-04-25] MEDS ORDERED: PRED20TA PO (18:58)
[2019-04-25 19:02] LABS: MAGNESIUM 1.6 MG/DL (1.5-2.4); TROPONIN I < 0.04 NG/ML (0.0-0.05)
[2019-04-25] MEDS ORDERED: acetaminophen 325mg tablet PO PRN (22:35)
[2019-04-25] MEDS ORDERED: mag hydrox/Alum hydrox/simeth 30ml oral suspension PO PRN (22:35)
[2019-04-25] MEDS ORDERED: magnesium hydroxide 30ml (MOM) UD suspension PO PRN (22:35)
[2019-04-25] MEDS ORDERED: ondansetron/PF 4mg/2ml inj IV PRN (22:35)
[2019-04-25] MEDS ORDERED: morphine 2 MG/ML inj. syringe IV PRN ×2 (22:35)
[2019-04-25] MEDS ORDERED: acetaminophen w/codeine (60MG) #4 tablet PO PRN (22:40)
[2019-04-26] VITALS (8 sets, daily range): BP systolic 101–131; BP diastolic 44–61
[2019-04-26] MEDS: cefepime 1GM/NS ADD-VANTAGE 100 ML IV SCH ×3 (02:44→15:57)
[2019-04-26] MEDS: guaiFENesin 200 MG/10 ML oral syrup UD cup PO SCH ×4 (02:44→20:46)
[2019-04-26] MEDS: HYDROcodone/acetaminophen 10/325mg tab PO PRN ×4 (02:44→20:45)
[2019-04-26 06:01] LABS: BASOPHILS % (AUTO) 0.5 % (0-1); EOSINOPHILS # (AUTO) 0.2 X10'3 (0-0.9); EOSINOPHILS % (AUTO) 1.7 % (0-6); HEMOGLOBIN 12.3 g/dl (12.0-16.0); LYMPHOCYTES # (AUTO) 1.8 X10'3 (1.1-4.8); LYMPHOCYTES % (AUTO) 20.2 % (21-51); MEAN CORPUSCULAR HEMOGLOBIN 29.2 PG (27.0-31.0); MEAN CORPUSCULAR HGB CONC 33.3 g/dL (33.0-36.5); MEAN CORPUSCULAR VOLUME 87.8 FL (78-98); MEAN PLATELET VOLUME 8.4 FL (7.4-10.4); MONOCYTES # (AUTO) 0.4 X10'3 (0-0.9); NEUTROPHILS # (AUTO) 6.6 X10'3 (1.8-7.7); NEUTROPHILS % (AUTO) 73.6 % (42-75); PLATELET COUNT 133 X10'3 (140-440); RED BLOOD COUNT 4.21 X10'6 (4.20-5.60)
[2019-04-26 06:18] LABS: ALANINE AMINOTRANSFERASE 36 U/L (12-78); ALBUMIN 2.6 G/DL (3.4-5.0); ALBUMIN/GLOBULIN RATIO 0.8 (1.1-1.5); ALKALINE PHOSPHATASE 86 IU/L (46-116); ANION GAP 8 (8-16); ASPARTATE AMINO TRANSFERASE 10 U/L (10-37); BILIRUBIN,TOTAL 0.4 MG/DL (0.1-1.0); BLOOD UREA NITROGEN 34 MG/DL (7-18); BUN/CREATININE RATIO 29.6 (6.6-38.0); CALCIUM 8.6 MG/DL (8.5-10.1); CHLORIDE 104 MMOL/L (99-107); CREATININE 1.15 MG/DL (0.40-0.90); GLUCOSE 115 MG/DL (70-104); POTASSIUM 3.9 MMOL/L (3.5-5.1); SODIUM 141 MMOL/L (135-145); TOTAL CARBON DIOXIDE 28.9 MMOL/L (24-32); TOTAL PROTEIN 5.8 G/DL (6.4-8.2); eGFR 46 ML/MIN
--- NOTE | 2019-04-26 06:27 | NUR ---
Patient in room PCU 3012. I have received report from Chris HOWARD and had the opportunity to ask questions and assume patient care.
--- NOTE | 2019-04-26 06:49 | NUR ---
Problems reprioritized. Patient report given, questions answered & plan of care reviewed with April HOWARD.
[2019-04-26 07:19] LABS: ANISOCYTOSIS 2+; PLATELET ESTIMATE DECREASED; POLYCHROMASIA 1+
[2019-04-26] MEDS ORDERED: furosemide 40mg tablet PO SCH (08:00)
[2019-04-26] MEDS: nystatin 500,000 unit/5ML UD oral suspension PO SCH ×5 (09:12→22:38)
[2019-04-26] MEDS: potassium Cl 20 mEq SR tablet PO SCH ×2 (09:13→20:45)
[2019-04-26] MEDS: methylPREDNISolone sod succ/PF 40mg inj. IV SCH ×3 (09:13→20:47)
[2019-04-26] MEDS: FLUoxetine 20mg capsule PO SCH (09:13)
[2019-04-26] MEDS: pantoprazole 40mg Tablet.DR PO SCH (09:15)
[2019-04-26] MEDS: heparin, porcine 5000 units/ml vial SQ SCH ×2 (09:16→20:47)
[2019-04-26] MEDS ORDERED: potassium CL 10mEq/100ml bag 100 ML IV PRN (10:25)
[2019-04-26] MEDS ORDERED: magnesium 4gm in 100ml NS 100 ML IV PRN (10:25)
[2019-04-26] MEDS ORDERED: magnesium Cl slow-release 64mg tablet PO PRN (10:25)
[2019-04-26] MEDS ORDERED: potassium Cl 20 mEq SR tablet PO PRN ×2 (10:25)
--- NOTE | 2019-04-26 13:18 | NUR ---
Page Dr. Diane PAGER ID: [phone] MESSAGE: Room 3012C Luana Owens: Patient would like to request Nystatin powder. She has some yeast under her left breast and looks a little reddened. Patient states she uses this at home as well. Thank you, Jacqui ext [phone].
--- NOTE | 2019-04-26 17:32 | NUR ---
Orientee documentation: I have reviewed and agree with all interventions, assessments performed and documented by Jacqui HOWARD. Orientee Medication Administration: For this medication-pass time frame, all medication were reviewed, dispensed, administered and documented per hospital policy by Jacqui HOWARD.
--- NOTE | 2019-04-26 18:10 | NUR ---
Problems reprioritized. Patient report given, questions answered & plan of care reviewed with Rene HOWARD. Patient stable at time of report given.
--- NOTE | 2019-04-26 18:37 | NUR ---
Patient in room PCU 3012. I have received report from April/Jacqui RNs and had the opportunity to ask questions and assume patient care.
--- NOTE | 2019-04-26 18:38 | NUR ---
Patient in room PCU 3012. I have received report from Slime and had the opportunity to ask questions and assume patient care.
[2019-04-26] MEDS: latanoprost 0.005% 2.5ml ophthalmic drops EACHEYE SCH (20:44)
[2019-04-26] MEDS: lactobacillus rhamnosus 10,000 MMU CELLS/CAPSULE PO SCH (20:45)
[2019-04-26] MEDS: traZODone 150mg tablet PO SCH (20:46)
[2019-04-26] MEDS: docusate sod 100mg capsule PO SCH (20:47)
[2019-04-26] MEDS ORDERED: fluconazole 150mg tablet PO ONE (22:30)
[2019-04-26] MEDS: azithromycin 250mg tablet PO SCH (22:39)
[2019-04-26] MEDS: furosemide 40mg/4ml inj IV SCH (22:39)
[2019-04-26] MEDS: ipratropium/albuterol 3ml nebule NEB SCH (23:47)
[2019-04-27] MEDS: guaiFENesin 200 MG/10 ML oral syrup UD cup PO SCH ×4 (01:30→20:45)
[2019-04-27] MEDS: piperacillin/tazo 4.5gm/100ml 100 ML IV SCH ×4 (01:36→23:12)
[2019-04-27] MEDS: methylPREDNISolone sod succ/PF 40mg inj. IV SCH ×4 (01:36→20:46)
[2019-04-27 02:00] VITALS: BP 111/53
[2019-04-27] MEDS: ipratropium/albuterol 3ml nebule NEB SCH ×6 (03:00→23:12)
--- NOTE | 2019-04-27 05:40 | NUR ---
Orientee documentation: I have reviewed and agree with all interventions, assessments performed and documented by Aakash HOWARD.
[2019-04-27 06:00] VITALS: BP 114/58
--- NOTE | 2019-04-27 06:09 | NUR ---
Problems reprioritized. Patient report given, questions answered & plan of care reviewed with Larisa.
--- NOTE | 2019-04-27 06:09 | NUR ---
Problems reprioritized. Patient report given, questions answered & plan of care reviewed with April/Jacqui RNs.
--- NOTE | 2019-04-27 06:14 | NUR ---
Patient in room PCU 3012. I have received report from Rene HOWARD & Aakash HOWARD and had the opportunity to ask questions and assume patient care.
[2019-04-27 06:22] LABS: BASOPHILS % (AUTO) 0.2 % (0-1); EOSINOPHILS % (AUTO) 0.1 % (0-6); HEMATOCRIT 34.6 % (35.0-45.0); HEMOGLOBIN 11.6 g/dl (12.0-16.0); LYMPHOCYTES % (AUTO) 13.3 % (21-51); MEAN CORPUSCULAR HEMOGLOBIN 29.4 PG (27.0-31.0); MEAN CORPUSCULAR HGB CONC 33.4 g/dL (33.0-36.5); MEAN PLATELET VOLUME 8.4 FL (7.4-10.4); MONOCYTES # (AUTO) 0.1 X10'3 (0-0.9); NEUTROPHILS # (AUTO) 6.3 X10'3 (1.8-7.7); NEUTROPHILS % (AUTO) 85.4 % (42-75); PLATELET COUNT 134 X10'3 (140-440); RED BLOOD COUNT 3.93 X10'6 (4.20-5.60); RED CELL DISTRIBUTION WIDTH 18.1 % (11.5-14.5); WHITE BLOOD COUNT 7.4 X10'3 (4.5-11.0)
[2019-04-27 06:37] LABS: ALANINE AMINOTRANSFERASE 35 U/L (12-78); ALBUMIN 2.4 G/DL (3.4-5.0); ALBUMIN/GLOBULIN RATIO 0.7 (1.1-1.5); ALKALINE PHOSPHATASE 80 IU/L (46-116); ANION GAP 10 (8-16); ASPARTATE AMINO TRANSFERASE 13 U/L (10-37); BILIRUBIN,TOTAL 0.3 MG/DL (0.1-1.0); BLOOD UREA NITROGEN 34 MG/DL (7-18); BUN/CREATININE RATIO 29.8 (6.6-38.0); CALCIUM 9.3 MG/DL (8.5-10.1); CHLORIDE 102 MMOL/L (99-107); CREATININE 1.14 MG/DL (0.40-0.90); GLUCOSE 205 MG/DL (70-104); POTASSIUM 4.3 MMOL/L (3.5-5.1); SODIUM 140 MMOL/L (135-145); TOTAL CARBON DIOXIDE 27.7 MMOL/L (24-32); eGFR 46 ML/MIN
[2019-04-27] MEDS: nystatin 500,000 unit/5ML UD oral suspension PO SCH ×5 (07:10→22:09)
[2019-04-27] MEDS: lactobacillus rhamnosus 10,000 MMU CELLS/CAPSULE PO SCH ×2 (07:11→20:45)
[2019-04-27] MEDS: HYDROcodone/acetaminophen 10/325mg tab PO PRN ×4 (07:11→22:09)
[2019-04-27] MEDS: pantoprazole 40mg Tablet.DR PO SCH (07:11)
[2019-04-27] MEDS: azithromycin 250mg tablet PO SCH (07:11)
[2019-04-27] MEDS: FLUoxetine 20mg capsule PO SCH (07:11)
[2019-04-27] MEDS: furosemide 40mg/4ml inj IV SCH ×2 (07:12→20:46)
[2019-04-27] MEDS: potassium Cl 20 mEq SR tablet PO SCH ×2 (07:12→20:45)
[2019-04-27] MEDS: heparin, porcine 5000 units/ml vial SQ SCH ×2 (07:13→20:47)
[2019-04-27 11:00] VITALS: BP 110/46
--- NOTE | 2019-04-27 18:27 | NUR ---
Problems reprioritized. Patient report given, questions answered & plan of care reviewed with Rene HOWARD and Aakash HOWARD.
--- NOTE | 2019-04-27 18:41 | NUR ---
Patient in room PCU 3012. I have received report from April HOWARD and had the opportunity to ask questions and assume patient care.
--- NOTE | 2019-04-27 18:43 | NUR ---
Patient in room PCU 3012. I have received report from Hunter HOWARD, and Jacqui HOWARD and had the opportunity to ask questions and assume patient care.
--- NOTE | 2019-04-27 18:43 | NUR ---
Patient in room PCU 3012. I have received report from Taylor RN and Taylor RN and had the opportunity to ask questions and assume patient care.
[2019-04-27 19:07] VITALS: BP 130/53
[2019-04-27] MEDS: docusate sod 100mg capsule PO SCH (20:45)
--- NOTE | 2019-04-27 21:02 | NUR ---
Page Sent promotional table spacer PAGER ID: [phone] MESSAGE: Luana Owens 3012-C here for PNA, Resp failure, copd, lung cancer is asking for some nystatin powder for redness and irritation under left breast. also did you get my previous page about Jose Angel Edmondson in 3-A. Thanks Rene [phone]
[2019-04-27 22:00] VITALS: BP 99/54
[2019-04-27] MEDS: nystatin 15 GM powder TP SCH (22:20)
[2019-04-27] MEDS: latanoprost 0.005% 2.5ml ophthalmic drops EACHEYE SCH (23:10)
[2019-04-27] MEDS: traZODone 150mg tablet PO SCH (23:10)
[2019-04-28] MEDS: guaiFENesin 200 MG/10 ML oral syrup UD cup PO SCH ×4 (02:00→20:30)
[2019-04-28] MEDS: methylPREDNISolone sod succ/PF 40mg inj. IV SCH ×4 (02:27→20:30)
[2019-04-28] MEDS: ipratropium/albuterol 3ml nebule NEB SCH ×6 (02:51→23:46)
--- NOTE | 2019-04-28 03:13 | NUR ---
Pt refuse 0200 [facility]
[2019-04-28] MEDS: nystatin 500,000 unit/5ML UD oral suspension PO SCH ×5 (05:20→23:10)
[2019-04-28] MEDS: HYDROcodone/acetaminophen 10/325mg tab PO PRN ×5 (05:26→23:11)
--- NOTE | 2019-04-28 05:28 | NUR ---
Orientee documentation: I have reviewed and agree with all interventions, assessments performed and documented by Aakash HOWARD.
[2019-04-28 06:00] VITALS: BP 112/44
--- NOTE | 2019-04-28 06:06 | NUR ---
Problems reprioritized. Patient report given, questions answered & plan of care reviewed with Hunter HOWARD and Jacqui HOWARD.
[2019-04-28 06:32] LABS: BASOPHILS % (AUTO) 0.1 % (0-1); EOSINOPHILS % (AUTO) 0 % (0-6); HEMOGLOBIN 11.8 g/dl (12.0-16.0); LYMPHOCYTES # (AUTO) 0.8 X10'3 (1.1-4.8); LYMPHOCYTES % (AUTO) 7.8 % (21-51); MEAN CORPUSCULAR HEMOGLOBIN 29.7 PG (27.0-31.0); MEAN CORPUSCULAR HGB CONC 33.8 g/dL (33.0-36.5); MEAN PLATELET VOLUME 8.7 FL (7.4-10.4); MONOCYTES # (AUTO) 0.2 X10'3 (0-0.9); MONOCYTES % (AUTO) 1.8 % (2-12); NEUTROPHILS # (AUTO) 8.9 X10'3 (1.8-7.7); NEUTROPHILS % (AUTO) 90.3 % (42-75); PLATELET COUNT 162 X10'3 (140-440); RED BLOOD COUNT 3.98 X10'6 (4.20-5.60); RED CELL DISTRIBUTION WIDTH 18.3 % (11.5-14.5); WHITE BLOOD COUNT 9.9 X10'3 (4.5-11.0)
--- NOTE | 2019-04-28 06:33 | NUR ---
Patient in room PCU 3012. I have received report from Rene HOWARD & Aakash HOWARD and had the opportunity to ask questions and assume patient care.
[2019-04-28 07:01] LABS: ALANINE AMINOTRANSFERASE 36 U/L (12-78); ALBUMIN 2.6 G/DL (3.4-5.0); ALBUMIN/GLOBULIN RATIO 0.7 (1.1-1.5); ALKALINE PHOSPHATASE 84 IU/L (46-116); ANION GAP 10 (8-16); ASPARTATE AMINO TRANSFERASE 11 U/L (10-37); BILIRUBIN,TOTAL 0.2 MG/DL (0.1-1.0); BLOOD UREA NITROGEN 44 MG/DL (7-18); BUN/CREATININE RATIO 34.1 (6.6-38.0); CALCIUM 9.6 MG/DL (8.5-10.1); CHLORIDE 102 MMOL/L (99-107); CREATININE 1.29 MG/DL (0.40-0.90); GLUCOSE 198 MG/DL (70-104); POTASSIUM 4.2 MMOL/L (3.5-5.1); SODIUM 141 MMOL/L (135-145); TOTAL CARBON DIOXIDE 29.5 MMOL/L (24-32); TOTAL PROTEIN 6.5 G/DL (6.4-8.2); eGFR 40 ML/MIN
[2019-04-28] MEDS: nystatin 15 GM powder TP SCH ×3 (07:12→20:31)
[2019-04-28] MEDS: heparin, porcine 5000 units/ml vial SQ SCH ×2 (07:16→20:30)
[2019-04-28] MEDS: piperacillin/tazo 4.5gm/100ml 100 ML IV SCH ×2 (07:17→16:59)
[2019-04-28] MEDS: potassium Cl 20 mEq SR tablet PO SCH ×2 (07:17→20:30)
[2019-04-28] MEDS: pantoprazole 40mg Tablet.DR PO SCH (07:17)
[2019-04-28] MEDS: furosemide 40mg/4ml inj IV SCH ×2 (07:17→20:30)
[2019-04-28] MEDS: azithromycin 250mg tablet PO SCH (07:17)
[2019-04-28] MEDS: lactobacillus rhamnosus 10,000 MMU CELLS/CAPSULE PO SCH ×2 (07:17→20:30)
[2019-04-28] MEDS: FLUoxetine 20mg capsule PO SCH (07:18)
[2019-04-28 11:00] VITALS: BP 129/57
[2019-04-28 15:00] VITALS: BP 117/52
--- NOTE | 2019-04-28 18:08 | NUR ---
Problems reprioritized. Patient report given, questions answered & plan of care reviewed with Rene HOWARD and Aakash HOWARD. Patient stable at transfer of care.
--- NOTE | 2019-04-28 18:22 | NUR ---
Patient in room PCU 3012. I have received report from Hunter HOWARD and had the opportunity to ask questions and assume patient care.
--- NOTE | 2019-04-28 19:19 | NUR ---
Patient in room PCU 3012. I have received report from April HOWARD and had the opportunity to ask questions and assume patient care.
[2019-04-28] MEDS: docusate sod 100mg capsule PO SCH (20:30)
[2019-04-28 22:00] VITALS: BP 119/53
[2019-04-28] MEDS: latanoprost 0.005% 2.5ml ophthalmic drops EACHEYE SCH (23:10)
[2019-04-28] MEDS: traZODone 150mg tablet PO SCH (23:11)
[2019-04-29] MEDS: piperacillin/tazo 4.5gm/100ml 100 ML IV SCH ×3 (00:14→16:00)
[2019-04-29] MEDS: guaiFENesin 200 MG/10 ML oral syrup UD cup PO SCH ×3 (02:00→14:01)
[2019-04-29] MEDS: methylPREDNISolone sod succ/PF 40mg inj. IV SCH ×3 (02:05→14:01)
[2019-04-29] MEDS: ipratropium/albuterol 3ml nebule NEB SCH ×4 (02:43→15:03)
[2019-04-29] MEDS: HYDROcodone/acetaminophen 10/325mg tab PO PRN ×3 (05:19→14:05)
[2019-04-29] MEDS: nystatin 500,000 unit/5ML UD oral suspension PO SCH ×4 (05:19→18:54)
--- NOTE | 2019-04-29 05:20 | NUR ---
Orientee documentation: I have reviewed and agree with all interventions, assessments performed and documented by Aakash HOWARD.
[2019-04-29 06:00] VITALS: BP 116/54
--- NOTE | 2019-04-29 06:00 | NUR ---
Problems reprioritized. Patient report given, questions answered & plan of care reviewed with Yulia HOWARD.
[2019-04-29 06:08] LABS: BASOPHILS % (AUTO) 0 % (0-1); EOSINOPHILS % (AUTO) 0 % (0-6); HEMATOCRIT 34.2 % (35.0-45.0); HEMOGLOBIN 11.3 g/dl (12.0-16.0); LYMPHOCYTES # (AUTO) 0.7 X10'3 (1.1-4.8); LYMPHOCYTES % (AUTO) 7.7 % (21-51); MEAN CORPUSCULAR HEMOGLOBIN 29.6 PG (27.0-31.0); MEAN CORPUSCULAR VOLUME 89.5 FL (78-98); MEAN PLATELET VOLUME 8.5 FL (7.4-10.4); MONOCYTES # (AUTO) 0.2 X10'3 (0-0.9); MONOCYTES % (AUTO) 2.2 % (2-12); NEUTROPHILS # (AUTO) 7.8 X10'3 (1.8-7.7); NEUTROPHILS % (AUTO) 90.1 % (42-75); PLATELET COUNT 159 X10'3 (140-440); RED BLOOD COUNT 3.82 X10'6 (4.20-5.60); WHITE BLOOD COUNT 8.7 X10'3 (4.5-11.0)
[2019-04-29 06:10] LABS: ALANINE AMINOTRANSFERASE 34 U/L (12-78); ALBUMIN 2.5 G/DL (3.4-5.0); ALBUMIN/GLOBULIN RATIO 0.7 (1.1-1.5); ALKALINE PHOSPHATASE 78 IU/L (46-116); ANION GAP 6 (8-16); ASPARTATE AMINO TRANSFERASE 10 U/L (10-37); BILIRUBIN,TOTAL 0.2 MG/DL (0.1-1.0); BLOOD UREA NITROGEN 45 MG/DL (7-18); BUN/CREATININE RATIO 31.3 (6.6-38.0); CALCIUM 9.6 MG/DL (8.5-10.1); CHLORIDE 102 MMOL/L (99-107); CREATININE 1.44 MG/DL (0.40-0.90); GLUCOSE 198 MG/DL (70-104); MAGNESIUM 1.8 MG/DL (1.5-2.4); PHOSPHORUS 4.2 MG/DL (2.3-4.5); POTASSIUM 4.4 MMOL/L (3.5-5.1); SODIUM 139 MMOL/L (135-145); TOTAL CARBON DIOXIDE 30.7 MMOL/L (24-32); TOTAL PROTEIN 5.9 G/DL (6.4-8.2); eGFR 35 ML/MIN
--- NOTE | 2019-04-29 06:21 | NUR ---
Problems reprioritized. Patient report given, questions answered & plan of care reviewed with Leticia HOWARD.
[2019-04-29] MEDS: potassium Cl 20 mEq SR tablet PO SCH (07:31)
[2019-04-29] MEDS: lactobacillus rhamnosus 10,000 MMU CELLS/CAPSULE PO SCH (07:31)
[2019-04-29] MEDS: furosemide 40mg/4ml inj IV SCH (07:32)
[2019-04-29] MEDS: pantoprazole 40mg Tablet.DR PO SCH (07:32)
[2019-04-29] MEDS: FLUoxetine 20mg capsule PO SCH (07:32)
[2019-04-29] MEDS: azithromycin 250mg tablet PO SCH (07:32)
[2019-04-29] MEDS: heparin, porcine 5000 units/ml vial SQ SCH (07:33)
[2019-04-29] MEDS: nystatin 15 GM powder TP SCH ×2 (08:00→13:00)
[2019-04-29 11:00] VITALS: BP 131/59
--- NOTE | 2019-04-29 12:47 | NUR ---
Initial: Pt admit w/ SOB hx COPD, CHF, pulmonary HTN. Possible RLL lung CA as well as aspiration per MD note. ALVAREZ ordered SP BSS to determine proper texture and consistency recs. PO 75-100% regular diet meeting needs. [facility] 04/27. Will continue to monitor. Rec: 1. continue regular diet per SP/MD 2. wt per rx Addendum: 04/29/19 at [address] Amended: Links added.
[2019-04-29 15:00] VITALS: BP 116/52
--- NOTE | 2019-04-29 19:32 | NUR ---
Patient transported to [facility] via [facility]. Report called to receiving RN. Patient alert and oriented x4. Currently 91% on 5L NC. Patient denies SOB. No s/s of distress noted. All belongings sent with patient. IV left in. Day shift RN took wound care photos.
[2019-04-29] MEDS ORDERED: VANCOMYCIN LEVEL IV ONE (22:30)
== END 2019-04-29 19:30 | DRG 871 ==
LOC: ER 18:03 → ED HOLD 22:36 → PCU 3S 04-26 01:05
PROVIDERS: ADMIT Internal Medicine; ATTEND Family Medicine
PROC: B32T1ZZ Computerized Tomography (CT Scan) of Left Pulmonary Artery using Low Osmolar Contrast (ICD-10-PCS; principal; 2019-04-25)
PROC: B3201ZZ Computerized Tomography (CT Scan) of Thoracic Aorta using Low Osmolar Contrast (ICD-10-PCS; 2019-04-25)
PROC: B32S1ZZ Computerized Tomography (CT Scan) of Right Pulmonary Artery using Low Osmolar Contrast (ICD-10-PCS; 2019-04-25)
DX: A41.9 Sepsis, unspecified organism (principal); J69.0 Pneumonitis due to inhalation of food and vomit; J96.21 Acute and chronic respiratory failure with hypoxia; Z68.41 Body mass index [BMI] 40.0-44.9, adult; I27.20 Pulmonary hypertension, unspecified; M19.90 Unspecified osteoarthritis, unspecified site; G89.4 Chronic pain syndrome; E78.5 Hyperlipidemia, unspecified; F41.8 Other specified anxiety disorders; Z66 Do not resuscitate; M54.9 Dorsalgia, unspecified; K21.9 Gastro-esophageal reflux disease without esophagitis; E78.00 Pure hypercholesterolemia, unspecified; I50.9 Heart failure, unspecified; J44.9 Chronic obstructive pulmonary disease, unspecified; Z85.118 Personal history of other malignant neoplasm of bronchus and lung; Z87.891 Personal history of nicotine dependence; Z90.2 Acquired absence of lung [part of]; Z90.49 Acquired absence of other specified parts of digestive tract; Z90.710 Acquired absence of both cervix and uterus; Z91.040 Latex allergy status; Z91.018 Allergy to other foods
CPT/HCPCS: 36415; 71045; 71275; 76937; 80053; 83605; 83735; 84100; 84145; 84484; 85025; 85610; 87040; 87081; 87502; 87503; 92508; 92616; 93005; 94640; 94760; 96365; 96368; 99285; G0378; J0692; J1644; J1940; J2543; J2920; J3370; J7120; Q9967

== ENCOUNTER 2019-06-16 10:24 | Inpatient (IN) | payer MEDICARE, BC ==
[~2019-06-16] VITALS: Ht 160 cm; Wt 106.0 kg
[~2019-06-16 10:24] MED LIST changes: +CHOL10002 PO; -CHOL100046 PO; +DOCU100C41 PO; +HYDR-3972 PO; -LIDO700A47 TOP; +NYST1000 PO; +PRAV40TA3 PO; -PRE5T PO; +PRED20TA PO; -SIMV20TA5 PO; -SPIR100T5 PO
[2019-06-16] MEDS ORDERED: azithromycin/NS 500mg/250ml 250 ML IV ONE (12:05)
[2019-06-16] MEDS ORDERED: CefTRIAXone 2gm/D5W 50ml 50 ML IV ONE (12:05)
[2019-06-16] MEDS ORDERED: methylPREDNISolone sod succ 125mg/2ml vial IV ONE (12:05)
[2019-06-16] MEDS ORDERED: normal saline 1000ML IV soln IV ONE (12:05)
[2019-06-16] MEDS ORDERED: ipratropium/albuterol 3ml nebule NEB ONE (12:05)
[2019-06-16 12:36] LABS: ABG BASE EXCESS 7.1 mmol/L (-2.0-3.0); ABG HCO3 33.9 mmol/L (22.0-26.0); ABG OXYGEN SATURATION 93.6 % (95-98); ABG PCO2 (T) 59.4 mmHg (35.0-45.0); ABG PH (T) 7.375 (7.350-7.450); ABG PO2 (T) 71.3 mmHg (83-108); FCOHb 0.7 % (0.5-1.5); FLOW 10 L/min; FMetHb 0.1 % (0.3-1.12); FO2Hb 92.9 % (94-100); PATIENT TEMPERATURE 37.2
[2019-06-16] MEDS ORDERED: LORazepam 2 mg/ml vial IV ONE (12:45)
--- NOTE | 2019-06-16 12:48 | NUR ---
pt came in for shortness of breath pt placed on bipap at 50% fio2 with peep of 6
[2019-06-16 13:04] LABS: BASOPHILS % (AUTO) 0.3 % (0-1); EOSINOPHILS # (AUTO) 0.1 X10'3 (0-0.9); EOSINOPHILS % (AUTO) 0.8 % (0-6); HEMATOCRIT 32.9 % (35.0-45.0); HEMOGLOBIN 10.8 g/dl (12.0-16.0); LYMPHOCYTES # (AUTO) 1.9 X10'3 (1.1-4.8); LYMPHOCYTES % (AUTO) 12.3 % (21-51); MEAN CORPUSCULAR HEMOGLOBIN 29.6 PG (27.0-31.0); MEAN CORPUSCULAR HGB CONC 32.8 g/dL (33.0-36.5); MEAN CORPUSCULAR VOLUME 90.3 FL (78-98); MEAN PLATELET VOLUME 7.9 FL (7.4-10.4); MONOCYTES # (AUTO) 0.6 X10'3 (0-0.9); MONOCYTES % (AUTO) 3.7 % (2-12); NEUTROPHILS # (AUTO) 13.1 X10'3 (1.8-7.7); NEUTROPHILS % (AUTO) 82.9 % (42-75); PLATELET COUNT 184 X10'3 (140-440); RED BLOOD COUNT 3.64 X10'6 (4.20-5.60); RED CELL DISTRIBUTION WIDTH 16.1 % (11.5-14.5); WHITE BLOOD COUNT 15.8 X10'3 (4.5-11.0)
[2019-06-16 13:08] LABS: ALANINE AMINOTRANSFERASE 21 U/L (12-78); ALBUMIN 3.2 G/DL (3.4-5.0); ALBUMIN/GLOBULIN RATIO 0.9 (1.1-1.5); ALKALINE PHOSPHATASE 106 IU/L (46-116); ANION GAP 6 (8-16); ASPARTATE AMINO TRANSFERASE 16 U/L (10-37); BILIRUBIN,TOTAL 0.4 MG/DL (0.1-1.0); BLOOD UREA NITROGEN 21 MG/DL (7-18); BUN/CREATININE RATIO 17.6 (6.6-38.0); CALCIUM 9.3 MG/DL (8.5-10.1); CHLORIDE 103 MMOL/L (99-107); CREATININE 1.19 MG/DL (0.40-0.90); GLUCOSE 119 MG/DL (70-104); POTASSIUM 3.8 MMOL/L (3.5-5.1); SODIUM 142 MMOL/L (135-145); TOTAL CARBON DIOXIDE 33.1 MMOL/L (24-32); TOTAL PROTEIN 6.8 G/DL (6.4-8.2); eGFR 44 ML/MIN
[2019-06-16] MEDS ORDERED: iohexol 300mg/ml 100ml inj. ONE (13:48)
[2019-06-16 14:26] LABS: ABG BASE EXCESS 5.7 mmol/L (-2.0-3.0); ABG HCO3 32.3 mmol/L (22.0-26.0); ABG OXYGEN SATURATION 92.5 % (95-98); ABG PCO2 (T) 58.5 mmHg (35.0-45.0); ABG PH (T) 7.361 (7.350-7.450); ABG PO2 (T) 69.9 mmHg (83-108); FCOHb 0.4 % (0.5-1.5); FMetHb 0.1 % (0.3-1.12); MINUTE VOLUME 11 L/min; PATIENT TEMPERATURE 37.2; RESPIRATORY RATE 16 b/min; RESPIRATORY RATE (OBSERVED) 21 b/min; TIDAL VOLUME 508 mL
[2019-06-16] MEDS ORDERED: iohexol 350MG/ML 100ml bottle IV ONE (14:49)
[2019-06-16] MEDS ORDERED: ondansetron/PF 4mg/2ml inj IV PRN (15:20)
[2019-06-16] MEDS ORDERED: HYDROcodone/acetaminophen 5mg/325mg tablet PO PRN (15:20)
[2019-06-16] MEDS ORDERED: potassium Cl 20 mEq SR tablet PO PRN ×2 (15:20)
[2019-06-16] MEDS ORDERED: magnesium 2GM in 50ml NS 50 ML IV PRN (15:20)
[2019-06-16] MEDS ORDERED: magnesium Cl slow-release 64mg tablet PO PRN (15:20)
[2019-06-16] MEDS ORDERED: albuterol 2.5 MG/3 ML nebule NEB PRN (15:20)
[2019-06-16] MEDS ORDERED: potassium CL 10mEq/100ml bag 100 ML IV PRN ×2 (15:20)
[2019-06-16] MEDS ORDERED: acetaminophen 325mg tablet PO PRN (15:20)
[2019-06-16] MEDS ORDERED: mag hydrox/Alum hydrox/simeth 30ml oral suspension PO PRN (15:20)
[2019-06-16] MEDS ORDERED: magnesium 4gm in 100ml NS 100 ML IV PRN (15:20)
--- NOTE | 2019-06-16 15:35 | NUR ---
back from ct and placed back on bipap
[2019-06-16] MEDS ORDERED: vancomycin inj 1,000 MG in normal saline 250ml IV soln 250 ML IV ONE (15:50)
--- NOTE | 2019-06-16 15:58 | NUR ---
pt asked for a bed james and was placed on one keep checking on her but keeps saying she is not done
[2019-06-16] MEDS ORDERED: cefepime 1GM in D5W 50mL 50 ML IV SCH (16:00)
--- NOTE | 2019-06-16 16:20 | NUR ---
remoived bed james but pt did not go
[2019-06-16 17:15] VITALS: BP 135/57
--- NOTE | 2019-06-16 17:19 | NUR ---
Patient admitted to room PCU 3023 from ED. I have received report from Vinay HOWARD and had the opportunity to ask questions and assume patient care. Pt is transferred from [facility] to bed w/ 4 staff members, MRSA swab obtained, pt is placed on bedpan, will continue to monitor.
[2019-06-16] MEDS: heparin, porcine 5000 units/ml vial SQ SCH (17:55)
[2019-06-16 18:00] VITALS: BP 144/57
--- NOTE | 2019-06-16 18:12 | NUR ---
Patient in room PCU 3023. I have received report from LEE Barnes and had the opportunity to ask questions and assume patient care.
--- NOTE | 2019-06-16 18:13 | NUR ---
Problems reprioritized. Patient report given, questions answered & plan of care reviewed with Radha HOWARD.
[2019-06-16] MEDS: ipratropium/albuterol 3ml nebule NEB SCH (19:47)
[2019-06-16] MEDS: docusate sod 100mg capsule PO SCH (19:51)
[2019-06-16] MEDS ORDERED: furosemide 10 MG/1 ML 10ml inj IV SCH (20:00)
[2019-06-16 22:00] VITALS: BP 110/38
[2019-06-16] MEDS: vancomycin/NS 1 GM ADD-VANTAGE 250 ML IV SCH (22:56)
[2019-06-17] MEDS ORDERED: traZODone 150mg tablet PO ONE (00:45)
[2019-06-17] MEDS: vancomycin/NS 1 GM ADD-VANTAGE 250 ML IV SCH (01:12)
[2019-06-17] MEDS: heparin, porcine 5000 units/ml vial SQ SCH ×4 (01:17→23:04)
[2019-06-17 02:00] VITALS: BP 126/42
[2019-06-17] MEDS: cefepime 1GM in D5W 50mL 50 ML IV SCH ×3 (03:54→19:36)
--- NOTE | 2019-06-17 04:05 | NUR ---
Succesffulyy decreased patient O2 to 4 L NC saturating at 90% Addendum: 06/17/19 at 0406 by Radha King RN *Successfully
--- NOTE | 2019-06-17 04:37 | NUR ---
Paged RT early in the night AROUND 193 due to patient requiring increased Oxygen up to 6 L. RT advised to watch patient to see if the patient had a acceptable pleth with her O2 sat monitor. I informed RT that patient had good pleth and was still desaturating to 86 % on 4 L. Increased patient to 5 L, she was still SOB. RT put patient on humidifier, did not think she needed high flow NC. Coached patient on breathing techniques and her oxygen saturation improved to 88%. At this time patient is on 4 L and her oxygen saturation is 92%. Will decrease patient to 3 L to asses how she tolerates this amount of O2. Perameters for O2 are 88-90% call if O2 >4 L
[2019-06-17 05:24] LABS: BASOPHILS % (AUTO) 0.3 % (0-1); EOSINOPHILS % (AUTO) 0 % (0-6); HEMATOCRIT 30.6 % (35.0-45.0); HEMOGLOBIN 10.3 g/dl (12.0-16.0); LYMPHOCYTES # (AUTO) 2.2 X10'3 (1.1-4.8); LYMPHOCYTES % (AUTO) 21.3 % (21-51); MEAN CORPUSCULAR HGB CONC 33.6 g/dL (33.0-36.5); MEAN CORPUSCULAR VOLUME 89.4 FL (78-98); MEAN PLATELET VOLUME 8.3 FL (7.4-10.4); MONOCYTES # (AUTO) 0.2 X10'3 (0-0.9); MONOCYTES % (AUTO) 1.8 % (2-12); NEUTROPHILS # (AUTO) 7.9 X10'3 (1.8-7.7); NEUTROPHILS % (AUTO) 76.6 % (42-75); PLATELET COUNT 191 X10'3 (140-440); RED BLOOD COUNT 3.42 X10'6 (4.20-5.60); RED CELL DISTRIBUTION WIDTH 15.7 % (11.5-14.5); WHITE BLOOD COUNT 10.3 X10'3 (4.5-11.0)
[2019-06-17 05:38] LABS: ALANINE AMINOTRANSFERASE 15 U/L (12-78); ALBUMIN 2.8 G/DL (3.4-5.0); ALBUMIN/GLOBULIN RATIO 0.8 (1.1-1.5); ALKALINE PHOSPHATASE 91 IU/L (46-116); ANION GAP 5 (8-16); ASPARTATE AMINO TRANSFERASE 15 U/L (10-37); BILIRUBIN,TOTAL 0.2 MG/DL (0.1-1.0); BLOOD UREA NITROGEN 21 MG/DL (7-18); CALCIUM 8.8 MG/DL (8.5-10.1); CHLORIDE 103 MMOL/L (99-107); GLUCOSE 142 MG/DL (70-104); MAGNESIUM 1.6 MG/DL (1.5-2.4); POTASSIUM 3.9 MMOL/L (3.5-5.1); SODIUM 139 MMOL/L (135-145); TOTAL CARBON DIOXIDE 30.7 MMOL/L (24-32); TOTAL PROTEIN 6.5 G/DL (6.4-8.2); eGFR 54 ML/MIN
[2019-06-17 06:00] VITALS: BP 118/48
--- NOTE | 2019-06-17 06:26 | NUR ---
Problems reprioritized. Patient report given, questions answered & plan of care reviewed with LEE Denis.
--- NOTE | 2019-06-17 06:34 | NUR ---
Patient in room PCU 3023. I have received report from LEE Garcia and had the opportunity to ask questions and assume patient care. Patient currently resting in bed, bed locked and low, call light in reach, no acute distress, will continue to monitor
[2019-06-17] MEDS ORDERED: azithromycin/NS 500mg/250ml 250 ML IV SCH (08:00)
[2019-06-17] MEDS ORDERED: CefTRIAXone/D5W-Rocephin 1gm 50 ML IV SCH (08:00)
[2019-06-17] MEDS: K and/or MAG REPLACEMENT MC SCH (08:00)
[2019-06-17] MEDS: docusate sod 100mg capsule PO SCH ×2 (08:06→19:36)
[2019-06-17] MEDS: ipratropium/albuterol 3ml nebule NEB SCH ×3 (09:00→20:11)
[2019-06-17 11:00] VITALS: BP 125/47
[2019-06-17] MEDS: furosemide 40mg/4ml inj IV SCH ×2 (12:12→19:36)
[2019-06-17 15:00] VITALS: BP 106/37
[2019-06-17 18:00] VITALS: BP 111/31
--- NOTE | 2019-06-17 18:22 | NUR ---
Problems reprioritized. Patient report given, questions answered & plan of care reviewed with LEE Nguyen.
--- NOTE | 2019-06-17 18:22 | NUR ---
Patient in room PCU 3023. I have received report from Cira HOWARD and had the opportunity to ask questions and assume patient care.
[2019-06-17] MEDS: lactobacillus rhamnosus 10,000 MMU CELLS/CAPSULE PO SCH (19:36)
--- NOTE | 2019-06-17 19:57 | NUR ---
PAGER ID: [phone] MESSAGE: [id number]-Luana Owens: Pt states she takes Trazodone 300mg PO QHS and Lumigan 2.5mL eye drops, one drop in each eye QHS. She is requesting them now. May we continue these home meds here? Thanks. -Wendy HOWARD [phone]
[2019-06-17] MEDS: HYDROcodone/acetaminophen 10/325mg tab PO PRN (21:33)
[2019-06-17 22:00] VITALS: BP 118/44
[2019-06-17] MEDS: traZODone 150mg tablet PO SCH (23:04)
[2019-06-17] MEDS: latanoprost 0.005% 2.5ml ophthalmic drops EACHEYE SCH (23:04)
[2019-06-18] MEDS ORDERED: VANCOMYCIN LEVEL IV ONE (00:30)
--- NOTE | 2019-06-18 02:00 | NUR ---
patient refused blood pressure
[2019-06-18] MEDS: cefepime 1GM in D5W 50mL 50 ML IV SCH ×3 (03:08→21:01)
[2019-06-18 06:00] VITALS: BP 131/54
[2019-06-18 06:08] LABS: BASOPHILS # (AUTO) 0.1 X10'3 (0-0.2); BASOPHILS % (AUTO) 0.5 % (0-1); EOSINOPHILS # (AUTO) 0.6 X10'3 (0-0.9); HEMATOCRIT 30.6 % (35.0-45.0); HEMOGLOBIN 10.3 g/dl (12.0-16.0); LYMPHOCYTES # (AUTO) 2.7 X10'3 (1.1-4.8); LYMPHOCYTES % (AUTO) 27.1 % (21-51); MEAN CORPUSCULAR HEMOGLOBIN 30.3 PG (27.0-31.0); MEAN CORPUSCULAR HGB CONC 33.8 g/dL (33.0-36.5); MEAN CORPUSCULAR VOLUME 89.7 FL (78-98); MEAN PLATELET VOLUME 8.4 FL (7.4-10.4); MONOCYTES # (AUTO) 0.6 X10'3 (0-0.9); MONOCYTES % (AUTO) 6.5 % (2-12); NEUTROPHILS # (AUTO) 5.9 X10'3 (1.8-7.7); NEUTROPHILS % (AUTO) 59.9 % (42-75); PLATELET COUNT 214 X10'3 (140-440); RED BLOOD COUNT 3.41 X10'6 (4.20-5.60); WHITE BLOOD COUNT 9.9 X10'3 (4.5-11.0)
--- NOTE | 2019-06-18 06:11 | NUR ---
Problems reprioritized. Patient report given, questions answered & plan of care reviewed with Cira HOWARD.
--- NOTE | 2019-06-18 06:15 | NUR ---
Patient in room PCU 3023. I have received report from LEE Nguyen and had the opportunity to ask questions and assume patient care. Patient is currently resting in bed, bed locked and low, call light in reach, no acute distress, will continue to monitor.
[2019-06-18 06:43] LABS: ALANINE AMINOTRANSFERASE 17 U/L (12-78); ALBUMIN 2.7 G/DL (3.4-5.0); ALBUMIN/GLOBULIN RATIO 0.8 (1.1-1.5); ALKALINE PHOSPHATASE 88 IU/L (46-116); ANION GAP 8 (8-16); ASPARTATE AMINO TRANSFERASE 14 U/L (10-37); BILIRUBIN,TOTAL 0.3 MG/DL (0.1-1.0); BLOOD UREA NITROGEN 21 MG/DL (7-18); BUN/CREATININE RATIO 19.8 (6.6-38.0); CALCIUM 8.5 MG/DL (8.5-10.1); CHLORIDE 104 MMOL/L (99-107); CREATININE 1.06 MG/DL (0.40-0.90); GLUCOSE 92 MG/DL (70-104); MAGNESIUM 1.5 MG/DL (1.5-2.4); SODIUM 143 MMOL/L (135-145); TOTAL CARBON DIOXIDE 30.9 MMOL/L (24-32); TOTAL PROTEIN 6.2 G/DL (6.4-8.2); eGFR 50 ML/MIN
--- NOTE | 2019-06-18 06:46 | NUR ---
Received critical value K 3.0, will notify MD and start replacement protocol.
--- NOTE | 2019-06-18 07:01 | NUR ---
PAGER ID: [phone] MESSAGE: LEE Denis, ext [phone], [phone], Roman, received critical value: K 3.0, will replace per protocol
[2019-06-18] MEDS: ipratropium/albuterol 3ml nebule NEB SCH ×3 (07:26→21:06)
[2019-06-18] MEDS: docusate sod 100mg capsule PO SCH ×2 (07:37→20:00)
[2019-06-18] MEDS: lactobacillus rhamnosus 10,000 MMU CELLS/CAPSULE PO SCH ×2 (07:37→21:05)
[2019-06-18] MEDS: furosemide 40mg/4ml inj IV SCH ×2 (07:38→21:06)
[2019-06-18] MEDS: heparin, porcine 5000 units/ml vial SQ SCH ×2 (07:38→17:59)
[2019-06-18] MEDS: K and/or MAG REPLACEMENT MC SCH (08:00)
[2019-06-18 11:00] VITALS: BP 127/56
[2019-06-18] MEDS: HYDROcodone/acetaminophen 10/325mg tab PO PRN ×3 (11:10→22:20)
[2019-06-18 15:00] VITALS: BP 138/45
[2019-06-18 18:00] VITALS: BP 118/53
--- NOTE | 2019-06-18 18:00 | NUR ---
Patient in room PCU 3023. I have received report from LEE Denis and had the opportunity to ask questions and assume patient care.
[2019-06-18 22:00] VITALS: BP 112/50
[2019-06-18] MEDS: traZODone 150mg tablet PO SCH (22:19)
[2019-06-18] MEDS: latanoprost 0.005% 2.5ml ophthalmic drops EACHEYE SCH (22:21)
[2019-06-19] MEDS ORDERED: VANCOMYCIN LEVEL IV ONE (00:30)
[2019-06-19] MEDS: heparin, porcine 5000 units/ml vial SQ SCH ×3 (00:42→16:40)
[2019-06-19 01:28] LABS: HEMOGLOBIN 11.1 g/dl (12.0-16.0)
[2019-06-19 01:30] LABS: ALANINE AMINOTRANSFERASE 18 U/L (12-78); ALBUMIN 2.9 G/DL (3.4-5.0); ALBUMIN/GLOBULIN RATIO 0.8 (1.1-1.5); ALKALINE PHOSPHATASE 90 IU/L (46-116); ANION GAP 8 (8-16); ASPARTATE AMINO TRANSFERASE 13 U/L (10-37); BASOPHILS # (AUTO) 0.1 X10'3 (0-0.2); BASOPHILS % (AUTO) 0.7 % (0-1); BILIRUBIN,TOTAL 0.3 MG/DL (0.1-1.0); BLOOD UREA NITROGEN 24 MG/DL (7-18); CALCIUM 9.2 MG/DL (8.5-10.1); CHLORIDE 103 MMOL/L (99-107); CREATININE 0.96 MG/DL (0.40-0.90); EOSINOPHILS # (AUTO) 0.8 X10'3 (0-0.9); EOSINOPHILS % (AUTO) 9.1 % (0-6); GLUCOSE 109 MG/DL (70-104); HEMATOCRIT 32.8 % (35.0-45.0); LYMPHOCYTES # (AUTO) 2.2 X10'3 (1.1-4.8); LYMPHOCYTES % (AUTO) 25.2 % (21-51); MAGNESIUM 1.3 MG/DL (1.5-2.4); MEAN CORPUSCULAR HEMOGLOBIN 29.8 PG (27.0-31.0); MEAN CORPUSCULAR HGB CONC 33.8 g/dL (33.0-36.5); MEAN CORPUSCULAR VOLUME 88.4 FL (78-98); MEAN PLATELET VOLUME 8.1 FL (7.4-10.4); MONOCYTES # (AUTO) 0.7 X10'3 (0-0.9); MONOCYTES % (AUTO) 8.6 % (2-12); NEUTROPHILS # (AUTO) 4.9 X10'3 (1.8-7.7); NEUTROPHILS % (AUTO) 56.4 % (42-75); PLATELET COUNT 225 X10'3 (140-440); POTASSIUM 3.6 MMOL/L (3.5-5.1); RED BLOOD COUNT 3.72 X10'6 (4.20-5.60); RED CELL DISTRIBUTION WIDTH 15.9 % (11.5-14.5); SODIUM 140 MMOL/L (135-145); TOTAL CARBON DIOXIDE 29.2 MMOL/L (24-32); TOTAL PROTEIN 6.6 G/DL (6.4-8.2); WHITE BLOOD COUNT 8.6 X10'3 (4.5-11.0); eGFR 56 ML/MIN
[2019-06-19 01:33] LABS: VANCOMYCIN,TROUGH 32.7 UG/ML (6.0-14.0)
--- NOTE | 2019-06-19 01:37 | NUR ---
Received critical lab value of 32.7 Vanco trough. Spoke to pharmacist d/t patient being on pharmacy to dose Vancomycin order and was told to stop current infusion and that repeat labs will be ordered for later this AM and patient will be redosed. Will advise primary RN
--- NOTE | 2019-06-19 02:00 | NUR ---
pt refused 0200 V/S
[2019-06-19] MEDS: cefepime 1GM in D5W 50mL 50 ML IV SCH ×3 (04:03→20:30)
[2019-06-19 06:00] VITALS: BP 126/46
--- NOTE | 2019-06-19 06:00 | NUR ---
Problems reprioritized. Patient report given, questions answered & plan of care reviewed with LEE Osman.
--- NOTE | 2019-06-19 06:50 | NUR ---
Patient in room PCU 3023. I have received report from Clara HOWARD and had the opportunity to ask questions and assume patient care.
[2019-06-19] MEDS: lactobacillus rhamnosus 10,000 MMU CELLS/CAPSULE PO SCH ×2 (07:21→20:33)
[2019-06-19] MEDS: furosemide 40mg/4ml inj IV SCH ×2 (07:23→20:31)
[2019-06-19] MEDS: docusate sod 100mg capsule PO SCH ×2 (07:24→20:31)
[2019-06-19] MEDS: HYDROcodone/acetaminophen 10/325mg tab PO PRN ×3 (07:24→20:13)
[2019-06-19] MEDS: K and/or MAG REPLACEMENT MC SCH (07:30)
[2019-06-19] MEDS: ipratropium/albuterol 3ml nebule NEB SCH ×3 (08:48→19:30)
[2019-06-19 11:00] VITALS: BP 112/43
[2019-06-19] MEDS: vancomycin/NS 1 GM ADD-VANTAGE 250 ML IV SCH ×2 (13:39→17:53)
[2019-06-19 15:00] VITALS: BP 138/102
[2019-06-19 18:00] VITALS: BP 134/50
--- NOTE | 2019-06-19 18:00 | NUR ---
Patient in room PCU 3023. I have received report from Jacqui HOWARD and had the opportunity to ask questions and assume patient care.
--- NOTE | 2019-06-19 18:15 | NUR ---
Problems reprioritized. Patient report given, questions answered & plan of care reviewed with Adriana HOWARD. Patient stable at time of transfer of care.
[2019-06-19] MEDS: traZODone 150mg tablet PO SCH (20:14)
--- NOTE | 2019-06-19 20:21 | NUR ---
CALLED PHARMACY TO CLARIFY ORDERS FOR VANCO RUNNING AND CEFIPIME THAT IS DUE AT 1999, NOT Y SITE COMPATIBLE PER PHARMACY, WILL FINISH VANCO AND HANG CEFIPIME LATE PER PHARMACY
[2019-06-19 22:00] VITALS: BP 131/74
[2019-06-19] MEDS: latanoprost 0.005% 2.5ml ophthalmic drops EACHEYE SCH (22:22)
[2019-06-20] MEDS: heparin, porcine 5000 units/ml vial SQ SCH ×2 (00:33→07:37)
[2019-06-20] MEDS: vancomycin/NS 1 GM ADD-VANTAGE 250 ML IV SCH ×2 (00:33→12:51)
[2019-06-20 02:00] VITALS: BP 149/61
[2019-06-20] MEDS: cefepime 1GM in D5W 50mL 50 ML IV SCH ×2 (03:54→11:49)
[2019-06-20 05:32] LABS: BASOPHILS % (AUTO) 0.6 % (0-1); EOSINOPHILS # (AUTO) 0.8 X10'3 (0-0.9); EOSINOPHILS % (AUTO) 12.5 % (0-6); HEMATOCRIT 30.9 % (35.0-45.0); HEMOGLOBIN 10.3 g/dl (12.0-16.0); LYMPHOCYTES # (AUTO) 2.1 X10'3 (1.1-4.8); LYMPHOCYTES % (AUTO) 32.6 % (21-51); MEAN CORPUSCULAR HEMOGLOBIN 29.5 PG (27.0-31.0); MEAN CORPUSCULAR HGB CONC 33.4 g/dL (33.0-36.5); MEAN CORPUSCULAR VOLUME 88.5 FL (78-98); MEAN PLATELET VOLUME 7.9 FL (7.4-10.4); MONOCYTES # (AUTO) 0.5 X10'3 (0-0.9); MONOCYTES % (AUTO) 8.5 % (2-12); NEUTROPHILS # (AUTO) 2.9 X10'3 (1.8-7.7); NEUTROPHILS % (AUTO) 45.8 % (42-75); PLATELET COUNT 215 X10'3 (140-440); RED BLOOD COUNT 3.49 X10'6 (4.20-5.60); RED CELL DISTRIBUTION WIDTH 15.8 % (11.5-14.5); WHITE BLOOD COUNT 6.4 X10'3 (4.5-11.0)
[2019-06-20 05:38] LABS: ALANINE AMINOTRANSFERASE 19 U/L (12-78); ALBUMIN 2.7 G/DL (3.4-5.0); ALBUMIN/GLOBULIN RATIO 0.8 (1.1-1.5); ALKALINE PHOSPHATASE 83 IU/L (46-116); ANION GAP 7 (8-16); ASPARTATE AMINO TRANSFERASE 11 U/L (10-37); BILIRUBIN,TOTAL 0.3 MG/DL (0.1-1.0); BLOOD UREA NITROGEN 22 MG/DL (7-18); CALCIUM 9.3 MG/DL (8.5-10.1); CHLORIDE 103 MMOL/L (99-107); GLUCOSE 107 MG/DL (70-104); MAGNESIUM 1.5 MG/DL (1.5-2.4); POTASSIUM 3.5 MMOL/L (3.5-5.1); SODIUM 140 MMOL/L (135-145); TOTAL PROTEIN 6.2 G/DL (6.4-8.2); eGFR 54 ML/MIN
[2019-06-20 06:00] VITALS: BP 89/64
--- NOTE | 2019-06-20 06:33 | NUR ---
Problems reprioritized. Patient report given, questions answered & plan of care reviewed with Jacqui.
--- NOTE | 2019-06-20 06:33 | NUR ---
Patient in room PCU 3023. I have received report from Adriana HOWARD and had the opportunity to ask questions and assume patient care.
--- NOTE | 2019-06-20 06:38 | NUR ---
Problems reprioritized. Patient report given, questions answered & plan of care reviewed with Jacqui HOWARD.
[2019-06-20] MEDS: furosemide 40mg/4ml inj IV SCH (07:36)
[2019-06-20] MEDS: lactobacillus rhamnosus 10,000 MMU CELLS/CAPSULE PO SCH (07:36)
[2019-06-20] MEDS: HYDROcodone/acetaminophen 10/325mg tab PO PRN ×2 (07:37→11:52)
[2019-06-20] MEDS: docusate sod 100mg capsule PO SCH (07:40)
[2019-06-20] MEDS: K and/or MAG REPLACEMENT MC SCH (07:48)
[2019-06-20 08:12] VITALS: BP 101/45
[2019-06-20] MEDS: ipratropium/albuterol 3ml nebule NEB SCH ×2 (08:18→15:00)
[2019-06-20] MEDS ORDERED: LEVO500T2 PO (10:41)
[2019-06-20 11:00] VITALS: BP 112/42
--- NOTE | 2019-06-20 11:37 | NUR ---
Page Dr. Woods: PAGER ID: [phone] MESSAGE: Room 3023C Luana Owens: Patient needs home nebulizer for her COPD. Case management requesting for note to placed in discharge, stating she needs this before they can send her home with it. Thank you, Jacqui ext [phone].
[2019-06-20 15:00] VITALS: BP 108/51
--- NOTE | 2019-06-20 17:30 | NUR ---
Patient stable for discharge per MD order. All discharge instructions reviewed with patient and all questions answered. New prescriptions e-scripted to patient's preferred pharmacy. PIV and night monitor discontinued. Belongings collected and sent with patient. Patient left with daughter and son in law in private vehicle. Patient wheeled down to lobby by primary RN.
[2019-06-21] MEDS ORDERED: VANCOMYCIN LEVEL IV ONE (00:30)
== END 2019-06-20 17:30 | disposition home health service (06) | DRG 871 ==
LOC: ER 10:24 → ED HOLD 15:20 → EDBEDREQ 16:17 → PCU 3S 17:00
PROVIDERS: ADMIT Family Medicine; ATTEND Family Medicine
PROC: 5A09357 Assistance with Respiratory Ventilation, Less than 24 Consecutive Hours, Continuous Positive Airway Pressure (ICD-10-PCS; principal; 2019-06-16)
PROC: B32T1ZZ Computerized Tomography (CT Scan) of Left Pulmonary Artery using Low Osmolar Contrast (ICD-10-PCS; 2019-06-16)
PROC: B3201ZZ Computerized Tomography (CT Scan) of Thoracic Aorta using Low Osmolar Contrast (ICD-10-PCS; 2019-06-16)
PROC: B32S1ZZ Computerized Tomography (CT Scan) of Right Pulmonary Artery using Low Osmolar Contrast (ICD-10-PCS; 2019-06-16)
DX: A41.9 Sepsis, unspecified organism (principal); J18.9 Pneumonia, unspecified organism; J96.21 Acute and chronic respiratory failure with hypoxia; J44.0 Chronic obstructive pulmonary disease with (acute) lower respiratory infection; J44.1 Chronic obstructive pulmonary disease with (acute) exacerbation; I50.32 Chronic diastolic (congestive) heart failure; F32.9 Major depressive disorder, single episode, unspecified; F41.9 Anxiety disorder, unspecified; G89.29 Other chronic pain; E87.6 Hypokalemia; Z66 Do not resuscitate; M19.90 Unspecified osteoarthritis, unspecified site; M54.9 Dorsalgia, unspecified; D64.9 Anemia, unspecified; E78.00 Pure hypercholesterolemia, unspecified; Z85.118 Personal history of other malignant neoplasm of bronchus and lung; Z90.2 Acquired absence of lung [part of]; Z90.49 Acquired absence of other specified parts of digestive tract; Z90.710 Acquired absence of both cervix and uterus; Z99.81 Dependence on supplemental oxygen; Z91.040 Latex allergy status; Z91.048 Other nonmedicinal substance allergy status; Z79.899 Other long term (current) drug therapy; Z82.49 Family history of ischemic heart disease and other diseases of the circulatory system
CPT/HCPCS: 36415; 36600; 71045; 71275; 80053; 80202; 82803; 82948; 83605; 83735; 84145; 85018; 85025; 85610; 87040; 87070; 87081; 93005; 93306; 94640; 94660; 94760; 96365; 96375; 97112; 97116; 97161; 97530; 97535; 99291; G0378; J0456; J0692; J0696; J1644; J1940; J2060; J2930; J3370; Q9967

== ENCOUNTER 2019-09-07 18:50 | Inpatient (IN) | payer MEDICARE, BC ==
[~2019-09-07] VITALS: Ht 160 cm; Wt 104.5 kg
[~2019-09-07 18:50] MED LIST changes: -ACET-3067 PO; -NYST1000 PO; -PRED20TA PO
[2019-09-07] MEDS ORDERED: acetaminophen 325mg tablet PO ONE (19:05)
[2019-09-07 19:32] LABS: BASOPHILS % (AUTO) 0.4 % (0-1); EOSINOPHILS # (AUTO) 0.1 X10'3 (0-0.9); EOSINOPHILS % (AUTO) 0.9 % (0-6); HEMATOCRIT 33.2 % (35.0-45.0); HEMOGLOBIN 11.1 g/dl (12.0-16.0); LYMPHOCYTES # (AUTO) 1.6 X10'3 (1.1-4.8); LYMPHOCYTES % (AUTO) 14.7 % (21-51); MEAN CORPUSCULAR HEMOGLOBIN 27.7 PG (27.0-31.0); MEAN CORPUSCULAR HGB CONC 33.4 g/dL (33.0-36.5); MEAN CORPUSCULAR VOLUME 83.1 FL (78-98); MEAN PLATELET VOLUME 8.1 FL (7.4-10.4); MONOCYTES # (AUTO) 0.6 X10'3 (0-0.9); MONOCYTES % (AUTO) 5.5 % (2-12); NEUTROPHILS # (AUTO) 8.5 X10'3 (1.8-7.7); NEUTROPHILS % (AUTO) 78.5 % (42-75); PLATELET COUNT 213 X10'3 (140-440); RED CELL DISTRIBUTION WIDTH 13.7 % (11.5-14.5); WHITE BLOOD COUNT 10.8 X10'3 (4.5-11.0)
[2019-09-07 19:51] LABS: ALANINE AMINOTRANSFERASE 15 U/L (12-78); ALBUMIN 3.1 G/DL (3.4-5.0); ALBUMIN/GLOBULIN RATIO 0.7 (1.1-1.5); ALKALINE PHOSPHATASE 145 IU/L (46-116); ANION GAP 8 (8-16); ASPARTATE AMINO TRANSFERASE 14 U/L (10-37); BILIRUBIN,TOTAL 0.3 MG/DL (0.1-1.0); BLOOD UREA NITROGEN 17 MG/DL (7-18); BUN/CREATININE RATIO 13.9 (6.6-38.0); CALCIUM 9.6 MG/DL (8.5-10.1); CHLORIDE 100 MMOL/L (99-107); CREATININE 1.22 MG/DL (0.40-0.90); GLUCOSE 139 MG/DL (70-104); POTASSIUM 3.8 MMOL/L (3.5-5.1); SODIUM 137 MMOL/L (135-145); TOTAL CARBON DIOXIDE 29.3 MMOL/L (24-32); TOTAL PROTEIN 7.4 G/DL (6.4-8.2); eGFR 43 ML/MIN
[2019-09-07] MEDS ORDERED: ipratropium/albuterol 3ml nebule NEB ONE (20:15)
[2019-09-07] MEDS ORDERED: albuterol 2.5 MG/3 ML nebule NEB ONE (20:15)
[2019-09-07] MEDS ORDERED: methylPREDNISolone sod succ 125mg/2ml vial IV ONE (20:15)
[2019-09-07] MEDS ORDERED: magnesium 2GM in 50ml NS 50 ML IV PRN (21:35)
[2019-09-07] MEDS ORDERED: magnesium 4gm in 100ml NS 100 ML IV PRN (21:35)
[2019-09-07] MEDS ORDERED: potassium CL 10mEq/100ml bag 100 ML IV PRN ×2 (21:35)
[2019-09-07] MEDS ORDERED: ondansetron/PF 4mg/2ml inj IV PRN (21:35)
[2019-09-07] MEDS ORDERED: magnesium Cl slow-release 64mg tablet PO PRN (21:35)
[2019-09-07] MEDS ORDERED: acetaminophen 325mg tablet PO PRN ×2 (21:35)
[2019-09-07] MEDS ORDERED: magnesium hydroxide 30ml (MOM) UD suspension PO PRN (21:35)
[2019-09-07] MEDS ORDERED: potassium Cl 20 mEq SR tablet PO PRN ×2 (21:35)
[2019-09-07] MEDS ORDERED: mag hydrox/Alum hydrox/simeth 30ml oral suspension PO PRN (21:35)
[2019-09-07] MEDS ORDERED: ipratropium/albuterol 3ml nebule NEB PRN (21:35)
--- NOTE | 2019-09-07 22:02 | NUR ---
PT AT 88% ON 6 L NC, BOOSTER PUMP OILER ALERTED TC REYES. RESPIRATORY PAGED
[2019-09-07] MEDS ORDERED: levoFLOXACIN-Levaquin 750MG/D5 150 ML IV ONE (22:15)
[2019-09-07 22:30] LABS: ABG BASE EXCESS 3.8 mmol/L (-2.0-3.0); ABG HCO3 28.7 mmol/L (22.0-26.0); ABG OXYGEN SATURATION 90.8 % (95-98); ABG PCO2 (T) 44.8 mmHg (35.0-45.0); ABG PH (T) 7.425 (7.350-7.450); ABG PO2 (T) 60.8 mmHg (83-108); ALLEN'S TEST POSITIVE; FCOHb 0.1 % (0.5-1.5); FMetHb 0.1 % (0.3-1.12); FO2Hb 90.6 % (94-100); TOTAL HEMOGLOBIN 11.8 G/dl (12.0-16.0)
--- NOTE | 2019-09-07 23:02 | NUR ---
Patient in room ED 4. I have received report from LEE Hennessy and had the opportunity to ask questions and assume patient care.
[2019-09-07 23:30] VITALS: BP 104/50
--- NOTE | 2019-09-08 | NUR ---
Patient arrived on unit at approximately 2330. Vital signs obtained, MRSA swab complete, 2 RN skin check complete. Patient condition stable.
--- NOTE | 2019-09-08 00:42 | NUR ---
Sent to [facility] PAGER ID: [phone] MESSAGE: Room 3024 B OwensLuana brown: Pt wants to take her trazadone, Larslan, and eye drops tonight. Please call Radha [phone]
[2019-09-08] MEDS: latanoprost 0.005% 2.5ml ophthalmic drops EACHEYE SCH ×2 (01:17→23:55)
[2019-09-08] MEDS: traZODone 150mg tablet PO SCH ×2 (01:18→23:54)
[2019-09-08] MEDS: HYDROcodone/acetaminophen 10/325mg tab PO PRN ×3 (01:43→12:01)
[2019-09-08 03:14] VITALS: BP 96/45
[2019-09-08 05:20] LABS: BASOPHILS % (AUTO) 0.3 % (0-1); EOSINOPHILS % (AUTO) 0 % (0-6); HEMOGLOBIN 10.7 g/dl (12.0-16.0); LYMPHOCYTES # (AUTO) 1.2 X10'3 (1.1-4.8); LYMPHOCYTES % (AUTO) 15.1 % (21-51); MEAN CORPUSCULAR HEMOGLOBIN 27.9 PG (27.0-31.0); MEAN CORPUSCULAR HGB CONC 33.5 g/dL (33.0-36.5); MEAN CORPUSCULAR VOLUME 83.3 FL (78-98); MEAN PLATELET VOLUME 8.2 FL (7.4-10.4); MONOCYTES # (AUTO) 0.1 X10'3 (0-0.9); MONOCYTES % (AUTO) 0.7 % (2-12); NEUTROPHILS # (AUTO) 6.9 X10'3 (1.8-7.7); NEUTROPHILS % (AUTO) 83.9 % (42-75); PLATELET COUNT 203 X10'3 (140-440); RED BLOOD COUNT 3.85 X10'6 (4.20-5.60); RED CELL DISTRIBUTION WIDTH 13.9 % (11.5-14.5); WHITE BLOOD COUNT 8.2 X10'3 (4.5-11.0)
[2019-09-08 05:23] LABS: ALBUMIN 2.8 G/DL (3.4-5.0); ANION GAP 6 (8-16); BLOOD UREA NITROGEN 23 MG/DL (7-18); BUN/CREATININE RATIO 18.1 (6.6-38.0); CALCIUM 9.4 MG/DL (8.5-10.1); CHLORIDE 100 MMOL/L (99-107); CREATININE 1.27 MG/DL (0.40-0.90); GLUCOSE 163 MG/DL (70-104); MAGNESIUM 1.8 MG/DL (1.5-2.4); POTASSIUM 4.1 MMOL/L (3.5-5.1); SODIUM 138 MMOL/L (135-145); TOTAL CARBON DIOXIDE 31.9 MMOL/L (24-32); eGFR 41 ML/MIN
[2019-09-08 06:00] VITALS: BP 97/49
--- NOTE | 2019-09-08 06:18 | NUR ---
Patient in room U 3024. I have received report from LEE Denis and had the opportunity to ask questions and assume patient care. Addendum: 09/08/19 at 0621 by Radha King RN NProble reprioritized. Patient report given, questions answered & plan of care reviewed with LEE Denis.
--- NOTE | 2019-09-08 06:48 | NUR ---
Patient in room U 3024B. I have received report from Radha HOWARD and had the opportunity to ask questions and assume patient care.
[2019-09-08] MEDS: CefTRIAXone 2gm/D5W 50ml 50 ML IV SCH (07:19)
[2019-09-08] MEDS: furosemide 20MG tablet PO SCH ×2 (07:20→20:00)
[2019-09-08] MEDS: azithromycin 250mg tablet PO SCH (07:20)
[2019-09-08] MEDS: enoxaparin 40mg/0.4ml syringe SQ SCH (07:20)
[2019-09-08] MEDS: potassium Cl 20 mEq SR tablet PO SCH ×2 (07:21→20:37)
[2019-09-08] MEDS: FLUoxetine 20mg capsule PO SCH (07:22)
[2019-09-08] MEDS ORDERED: predniSONE 20 mg tablet PO SCH (08:00)
[2019-09-08] MEDS: K and/or MAG REPLACEMENT MC SCH ×2 (08:00→20:00)
[2019-09-08] MEDS: ipratropium/albuterol 3ml nebule NEB SCH ×4 (08:31→19:48)
[2019-09-08 11:00] VITALS: BP 104/48
--- NOTE | 2019-09-08 14:58 | NUR ---
Patient earlier today was requesting Tylenol #4 to have at bedtime for sleep. She states that she takes 2 tabs before bed. Confirmed with Dr. Goldman, okay to continue this medication. Medication was ordered, however we do not have Tylenol #4 in pharmacy stock, discussed with pharmacist and recommended patient bring in meds or can try Tylenol #3. Patient refusing Tylenol #3, states "that doesn't work for me". She states that her daughter is ill at home and unable to bring in home medications. Patient also then told me she does not take Tylenol #4 at home for sleep, only takes Trazadone which is already ordered.
[2019-09-08 15:00] VITALS: BP 110/54
[2019-09-08] MEDS: methylPREDNISolone sod succ 125mg/2ml vial IV SCH (18:00)
--- NOTE | 2019-09-08 18:20 | NUR ---
Patient in room PCU 3024. I have received report from CARLOS Santiago and had the opportunity to ask questions and assume patient care.
[2019-09-08 18:30] VITALS: BP 121/53
--- NOTE | 2019-09-08 18:34 | NUR ---
Problems reprioritized. Patient report given, questions answered & plan of care reviewed with Bela HOWARD.
[2019-09-08] MEDS: lactobacillus rhamnosus 10,000 MMU CELLS/CAPSULE PO SCH (20:38)
[2019-09-08] MEDS ORDERED: acetaminophen w/codeine (60MG) #4 tablet PO SCH ×2 (21:00)
[2019-09-08 22:30] VITALS: BP 115/54
[2019-09-08] MEDS: pravastatin 40mg tablet PO SCH (23:55)
[2019-09-09] MEDS: HYDROcodone/acetaminophen 10/325mg tab PO PRN ×4 (00:02→21:45)
[2019-09-09] MEDS: methylPREDNISolone sod succ 125mg/2ml vial IV SCH ×4 (00:08→23:32)
[2019-09-09 02:20] VITALS: BP 127/0
[2019-09-09 06:00] VITALS: BP 129/52
[2019-09-09 06:01] LABS: BASOPHILS % (AUTO) 0 % (0-1); EOSINOPHILS % (AUTO) 0 % (0-6); HEMATOCRIT 33.6 % (35.0-45.0); HEMOGLOBIN 11.1 g/dl (12.0-16.0); LYMPHOCYTES # (AUTO) 1.3 X10'3 (1.1-4.8); LYMPHOCYTES % (AUTO) 14.4 % (21-51); MEAN CORPUSCULAR HEMOGLOBIN 27.2 PG (27.0-31.0); MEAN CORPUSCULAR HGB CONC 33.1 g/dL (33.0-36.5); MEAN CORPUSCULAR VOLUME 82.4 FL (78-98); MEAN PLATELET VOLUME 8.8 FL (7.4-10.4); MONOCYTES # (AUTO) 0.2 X10'3 (0-0.9); MONOCYTES % (AUTO) 1.9 % (2-12); NEUTROPHILS # (AUTO) 7.5 X10'3 (1.8-7.7); NEUTROPHILS % (AUTO) 83.7 % (42-75); PLATELET COUNT 246 X10'3 (140-440); RED BLOOD COUNT 4.08 X10'6 (4.20-5.60); RED CELL DISTRIBUTION WIDTH 13.7 % (11.5-14.5)
--- NOTE | 2019-09-09 06:04 | NUR ---
Problems reprioritized. Patient report given, questions answered & plan of care reviewed with CARLOS HOWARD.
[2019-09-09 06:05] LABS: ALBUMIN 2.7 G/DL (3.4-5.0); ANION GAP 8 (8-16); BLOOD UREA NITROGEN 37 MG/DL (7-18); BUN/CREATININE RATIO 32.2 (6.6-38.0); CALCIUM 9.9 MG/DL (8.5-10.1); CHLORIDE 103 MMOL/L (99-107); CREATININE 1.15 MG/DL (0.40-0.90); GLUCOSE 151 MG/DL (70-104); POTASSIUM 4.7 MMOL/L (3.5-5.1); SODIUM 140 MMOL/L (135-145); eGFR 46 ML/MIN
--- NOTE | 2019-09-09 07:05 | NUR ---
Patient in room U 3027D. I have received report from Gia HOWARD and had the opportunity to ask questions and assume patient care. Patient laying in bed, eyes closed, no signs of distress at this time.
[2019-09-09] MEDS: ipratropium/albuterol 3ml nebule NEB SCH ×4 (07:25→20:17)
[2019-09-09] MEDS: CefTRIAXone 2gm/D5W 50ml 50 ML IV SCH (07:51)
[2019-09-09] MEDS: enoxaparin 40mg/0.4ml syringe SQ SCH (07:52)
[2019-09-09] MEDS: lactobacillus rhamnosus 10,000 MMU CELLS/CAPSULE PO SCH ×2 (07:52→21:45)
[2019-09-09] MEDS: FLUoxetine 20mg capsule PO SCH (07:52)
[2019-09-09] MEDS: azithromycin 250mg tablet PO SCH (07:52)
[2019-09-09] MEDS: furosemide 20MG tablet PO SCH ×2 (07:52→20:00)
[2019-09-09] MEDS: potassium Cl 20 mEq SR tablet PO SCH ×2 (07:52→21:44)
[2019-09-09] MEDS: K and/or MAG REPLACEMENT MC SCH ×2 (08:00→20:00)
[2019-09-09 11:00] VITALS: BP 108/57
--- NOTE | 2019-09-09 11:35 | NUR ---
Patient in room PCU 3024. I have received report from Cira HOWARD and had the opportunity to ask questions will assume patient care when patient comes to the floor.
--- NOTE | 2019-09-09 11:59 | NUR ---
Patient transferred to Surgical 357A. Report given to Marlee HOWARD. Patient stable for transfer at this time. All belongings sent with patient, transferred on 5L NC. VS stable at time of transfer.
[2019-09-09 12:00] VITALS: BP 140/56
[2019-09-09 18:00] VITALS: BP 135/56
--- NOTE | 2019-09-09 18:34 | NUR ---
Patient in room RONALDO 357. I have received report from Rosalva HOWARD and had the opportunity to ask questions and assume patient care.
[2019-09-09] MEDS: guaiFENesin ER 600mg tablet PO SCH (21:46)
[2019-09-09] MEDS: traZODone 150mg tablet PO SCH (23:31)
[2019-09-09] MEDS: pravastatin 40mg tablet PO SCH (23:31)
[2019-09-09] MEDS: latanoprost 0.005% 2.5ml ophthalmic drops EACHEYE SCH (23:32)
[2019-09-10] VITALS: BP 130/52
[2019-09-10 06:21] LABS: BASOPHILS % (AUTO) 0.1 % (0-1); EOSINOPHILS % (AUTO) 0 % (0-6); HEMATOCRIT 34.3 % (35.0-45.0); HEMOGLOBIN 11.3 g/dl (12.0-16.0); LYMPHOCYTES # (AUTO) 1.2 X10'3 (1.1-4.8); LYMPHOCYTES % (AUTO) 13.2 % (21-51); MEAN CORPUSCULAR HEMOGLOBIN 27.3 PG (27.0-31.0); MEAN CORPUSCULAR HGB CONC 32.9 g/dL (33.0-36.5); MEAN CORPUSCULAR VOLUME 82.8 FL (78-98); MEAN PLATELET VOLUME 8.7 FL (7.4-10.4); MONOCYTES # (AUTO) 0.1 X10'3 (0-0.9); MONOCYTES % (AUTO) 1.3 % (2-12); NEUTROPHILS # (AUTO) 7.7 X10'3 (1.8-7.7); NEUTROPHILS % (AUTO) 85.4 % (42-75); PLATELET COUNT 265 X10'3 (140-440); RED BLOOD COUNT 4.14 X10'6 (4.20-5.60); RED CELL DISTRIBUTION WIDTH 13.9 % (11.5-14.5)
[2019-09-10 06:29] LABS: ALBUMIN 2.7 G/DL (3.4-5.0); ANION GAP 4 (8-16); BLOOD UREA NITROGEN 44 MG/DL (7-18); BUN/CREATININE RATIO 38.9 (6.6-38.0); CALCIUM 9.3 MG/DL (8.5-10.1); CHLORIDE 104 MMOL/L (99-107); CREATININE 1.13 MG/DL (0.40-0.90); GLUCOSE 140 MG/DL (70-104); MAGNESIUM 1.9 MG/DL (1.5-2.4); POTASSIUM 4.9 MMOL/L (3.5-5.1); SODIUM 139 MMOL/L (135-145); TOTAL CARBON DIOXIDE 30.7 MMOL/L (24-32); eGFR 47 ML/MIN
--- NOTE | 2019-09-10 06:34 | NUR ---
Problems reprioritized. Patient report given, questions answered & plan of care reviewed with LEE Lira.
--- NOTE | 2019-09-10 06:35 | NUR ---
Patient in room RONALDO 357. I have received report from LEE Blackwell and had the opportunity to ask questions and assume patient care.
[2019-09-10 08:00] VITALS: BP 126/55
[2019-09-10] MEDS: K and/or MAG REPLACEMENT MC SCH ×2 (08:00→19:25)
[2019-09-10] MEDS: ipratropium/albuterol 3ml nebule NEB SCH ×4 (09:02→20:19)
[2019-09-10] MEDS: methylPREDNISolone sod succ 125mg/2ml vial IV SCH (09:34)
[2019-09-10] MEDS: CefTRIAXone 2gm/D5W 50ml 50 ML IV SCH (09:34)
[2019-09-10] MEDS: lactobacillus rhamnosus 10,000 MMU CELLS/CAPSULE PO SCH ×2 (09:35→22:18)
[2019-09-10] MEDS: potassium Cl 20 mEq SR tablet PO SCH ×2 (09:35→22:18)
[2019-09-10] MEDS: furosemide 20MG tablet PO SCH ×2 (09:35→22:18)
[2019-09-10] MEDS: guaiFENesin ER 600mg tablet PO SCH ×2 (09:35→22:17)
[2019-09-10] MEDS: azithromycin 250mg tablet PO SCH (09:36)
[2019-09-10] MEDS: FLUoxetine 20mg capsule PO SCH (09:36)
[2019-09-10] MEDS: enoxaparin 40mg/0.4ml syringe SQ SCH (09:37)
[2019-09-10] MEDS: HYDROcodone/acetaminophen 10/325mg tab PO PRN ×2 (09:38→22:24)
[2019-09-10 12:00] VITALS: BP 109/45
[2019-09-10 18:15] VITALS: BP 125/51
--- NOTE | 2019-09-10 18:15 | NUR ---
Patient in room RONALDO 357. I have received report from Soraya Curran RN and had the opportunity to ask questions and assume patient care.
--- NOTE | 2019-09-10 18:15 | NUR ---
Problems reprioritized. Patient report given, questions answered & plan of care reviewed with LEE RAY.
[2019-09-10] MEDS: pravastatin 40mg tablet PO SCH (22:17)
[2019-09-11] MEDS: traZODone 150mg tablet PO SCH ×2 (00:16→22:19)
[2019-09-11] MEDS: latanoprost 0.005% 2.5ml ophthalmic drops EACHEYE SCH ×2 (00:16→22:19)
--- NOTE | 2019-09-11 06:20 | NUR ---
Problems reprioritized. Patient report given, questions answered & plan of care reviewed with Soraya Curran RN.
--- NOTE | 2019-09-11 06:25 | NUR ---
Patient in room RONALDO 350. I have received report from LEE RAY and had the opportunity to ask questions and assume patient care.
[2019-09-11 06:32] LABS: BASOPHILS % (AUTO) 0.1 % (0-1); EOSINOPHILS % (AUTO) 0.4 % (0-6); HEMATOCRIT 33.5 % (35.0-45.0); HEMOGLOBIN 10.9 g/dl (12.0-16.0); LYMPHOCYTES # (AUTO) 2.1 X10'3 (1.1-4.8); LYMPHOCYTES % (AUTO) 20.7 % (21-51); MEAN CORPUSCULAR HEMOGLOBIN 27.1 PG (27.0-31.0); MEAN CORPUSCULAR HGB CONC 32.7 g/dL (33.0-36.5); MEAN CORPUSCULAR VOLUME 83.1 FL (78-98); MEAN PLATELET VOLUME 8.3 FL (7.4-10.4); MONOCYTES # (AUTO) 1.1 X10'3 (0-0.9); MONOCYTES % (AUTO) 10.6 % (2-12); NEUTROPHILS % (AUTO) 68.2 % (42-75); PLATELET COUNT 256 X10'3 (140-440); RED BLOOD COUNT 4.03 X10'6 (4.20-5.60); RED CELL DISTRIBUTION WIDTH 14.4 % (11.5-14.5); WHITE BLOOD COUNT 10.2 X10'3 (4.5-11.0)
[2019-09-11 06:44] LABS: ALBUMIN 2.5 G/DL (3.4-5.0); ANION GAP 5 (8-16); BLOOD UREA NITROGEN 43 MG/DL (7-18); CALCIUM 9.1 MG/DL (8.5-10.1); CHLORIDE 105 MMOL/L (99-107); CREATININE 1.05 MG/DL (0.40-0.90); GLUCOSE 95 MG/DL (70-104); MAGNESIUM 1.9 MG/DL (1.5-2.4); POTASSIUM 4.4 MMOL/L (3.5-5.1); SODIUM 140 MMOL/L (135-145); TOTAL CARBON DIOXIDE 30.2 MMOL/L (24-32); eGFR 51 ML/MIN
[2019-09-11 07:00] VITALS: BP 103/49
[2019-09-11] MEDS: ipratropium/albuterol 3ml nebule NEB SCH ×4 (07:00→20:27)
[2019-09-11] MEDS: K and/or MAG REPLACEMENT MC SCH ×2 (08:00→18:51)
[2019-09-11] MEDS: potassium Cl 20 mEq SR tablet PO SCH ×2 (08:03→20:10)
[2019-09-11] MEDS: furosemide 20MG tablet PO SCH ×2 (08:03→20:11)
[2019-09-11] MEDS: lactobacillus rhamnosus 10,000 MMU CELLS/CAPSULE PO SCH ×2 (08:03→20:11)
[2019-09-11] MEDS: azithromycin 250mg tablet PO SCH (08:04)
[2019-09-11] MEDS: guaiFENesin ER 600mg tablet PO SCH ×2 (08:04→20:11)
[2019-09-11] MEDS: FLUoxetine 20mg capsule PO SCH (08:04)
[2019-09-11] MEDS: predniSONE 20 mg tablet PO SCH (08:04)
[2019-09-11] MEDS: enoxaparin 40mg/0.4ml syringe SQ SCH (08:05)
[2019-09-11 11:00] VITALS: BP 129/34
[2019-09-11] MEDS ORDERED: levoFLOXACIN 750MG TABLET PO SCH (11:00)
[2019-09-11] MEDS: HYDROcodone/acetaminophen 10/325mg tab PO PRN ×2 (14:58→20:10)
--- NOTE | 2019-09-11 15:34 | NUR ---
Initial: Pt admit with acute on chronic obstructive pulmonary disease exacerbation, acute on chronic respiratory failure, hypoxic/hypercarbic, and PNA. Pt currently on a regular diet documented with 75-100% PO intake. Pt seen at bedside provided with written and verbal protein education with RD contact information. Pt states she is getting extra protein with cottage cheese with fruit plates. Pt reports she is getting full from meals and denies additional food preferences at this time. Pt reports difficulty chewing however denies texture modification at this time. LBM 09/10. No nutrition intervention at this time. Will continue to follow. Recommendations: 1) Diet change to heart healthy 2) Bowel care PRN 3) Wt per rx Addendum: 09/11/19 at [address] Amended: Links added.
[2019-09-11 18:15] VITALS: BP 123/42
--- NOTE | 2019-09-11 18:15 | NUR ---
Problems reprioritized. Patient report given, questions answered & plan of care reviewed with LEE RAY.
--- NOTE | 2019-09-11 18:34 | NUR ---
Patient in room RONALDO 357. I have received report from Soraya Curran RN and had the opportunity to ask questions and assume patient care.
[2019-09-11] MEDS: pravastatin 40mg tablet PO SCH (20:11)
[2019-09-12 00:12] VITALS: BP 114/63
--- NOTE | 2019-09-12 06:30 | NUR ---
Problems reprioritized. Patient report given, questions answered & plan of care reviewed with LEE Hickman.
[2019-09-12 06:35] LABS: BASOPHILS % (AUTO) 0.1 % (0-1); EOSINOPHILS # (AUTO) 0.1 X10'3 (0-0.9); EOSINOPHILS % (AUTO) 0.6 % (0-6); HEMATOCRIT 31.7 % (35.0-45.0); HEMOGLOBIN 10.6 g/dl (12.0-16.0); LYMPHOCYTES % (AUTO) 20.6 % (21-51); MEAN CORPUSCULAR HEMOGLOBIN 27.8 PG (27.0-31.0); MEAN CORPUSCULAR HGB CONC 33.5 g/dL (33.0-36.5); MEAN CORPUSCULAR VOLUME 83.1 FL (78-98); MEAN PLATELET VOLUME 8.2 FL (7.4-10.4); MONOCYTES % (AUTO) 10.3 % (2-12); NEUTROPHILS # (AUTO) 6.6 X10'3 (1.8-7.7); NEUTROPHILS % (AUTO) 68.4 % (42-75); PLATELET COUNT 245 X10'3 (140-440); RED BLOOD COUNT 3.82 X10'6 (4.20-5.60); RED CELL DISTRIBUTION WIDTH 14.3 % (11.5-14.5); WHITE BLOOD COUNT 9.6 X10'3 (4.5-11.0)
--- NOTE | 2019-09-12 06:41 | NUR ---
Patient in room RONALDO 357. I have received report from Lorraine HOWARD and had the opportunity to ask questions and assume patient care.
[2019-09-12 06:47] LABS: ALBUMIN 2.4 G/DL (3.4-5.0); ANION GAP 4 (8-16); BLOOD UREA NITROGEN 35 MG/DL (7-18); BUN/CREATININE RATIO 33.3 (6.6-38.0); CALCIUM 9.2 MG/DL (8.5-10.1); CHLORIDE 106 MMOL/L (99-107); CREATININE 1.05 MG/DL (0.40-0.90); GLUCOSE 98 MG/DL (70-104); MAGNESIUM 1.9 MG/DL (1.5-2.4); POTASSIUM 4.1 MMOL/L (3.5-5.1); SODIUM 138 MMOL/L (135-145); TOTAL CARBON DIOXIDE 28.2 MMOL/L (24-32); eGFR 51 ML/MIN
[2019-09-12 07:00] VITALS: BP 115/48
[2019-09-12] MEDS: ipratropium/albuterol 3ml nebule NEB SCH ×2 (07:00→10:36)
[2019-09-12] MEDS: K and/or MAG REPLACEMENT MC SCH (08:00)
[2019-09-12] MEDS: lactobacillus rhamnosus 10,000 MMU CELLS/CAPSULE PO SCH (08:55)
[2019-09-12] MEDS: potassium Cl 20 mEq SR tablet PO SCH (08:56)
[2019-09-12] MEDS: furosemide 20MG tablet PO SCH (08:56)
[2019-09-12] MEDS: guaiFENesin ER 600mg tablet PO SCH (08:57)
[2019-09-12] MEDS: predniSONE 20 mg tablet PO SCH (08:58)
[2019-09-12] MEDS: FLUoxetine 20mg capsule PO SCH (08:58)
[2019-09-12] MEDS: enoxaparin 40mg/0.4ml syringe SQ SCH (09:00)
[2019-09-12] MEDS ORDERED: PRED10TA23 PO (09:41)
[2019-09-12] MEDS ORDERED: GUAI600T45 PO (09:41)
[2019-09-12] MEDS ORDERED: LEVO750T46 PO (10:38)
--- NOTE | 2019-09-12 10:59 | NUR ---
Patients home medications retrieved from Pharmacy and returned to patient for discharge
[2019-09-12 12:00] VITALS: BP 136/53
[2019-09-12] MEDS: HYDROcodone/acetaminophen 10/325mg tab PO PRN (12:20)
[2019-09-13] MEDS ORDERED: levoFLOXACIN 750MG TABLET PO SCH (08:00)
== END 2019-09-12 13:15 | disposition home health service (06) | DRG 193 ==
LOC: ER 18:51 → ED HOLD 21:35 → PCU 3S 23:30 → CMPBEDREQ 23:49 → SUR 3N 09-09 12:07
PROVIDERS: ADMIT Hospitalist; ATTEND Internal Medicine
DX: J18.9 Pneumonia, unspecified organism (principal); J96.21 Acute and chronic respiratory failure with hypoxia; J44.1 Chronic obstructive pulmonary disease with (acute) exacerbation; Z68.41 Body mass index [BMI] 40.0-44.9, adult; J20.9 Acute bronchitis, unspecified; D63.8 Anemia in other chronic diseases classified elsewhere; E78.00 Pure hypercholesterolemia, unspecified; E78.5 Hyperlipidemia, unspecified; I50.9 Heart failure, unspecified; N18.3 Chronic kidney disease, stage 3 (moderate); F32.9 Major depressive disorder, single episode, unspecified; F41.9 Anxiety disorder, unspecified; G47.00 Insomnia, unspecified; G89.29 Other chronic pain; M19.90 Unspecified osteoarthritis, unspecified site; M54.9 Dorsalgia, unspecified; E66.01 Morbid (severe) obesity due to excess calories; I27.81 Cor pulmonale (chronic); Z79.899 Other long term (current) drug therapy; Z82.49 Family history of ischemic heart disease and other diseases of the circulatory system; Z85.118 Personal history of other malignant neoplasm of bronchus and lung; Z90.49 Acquired absence of other specified parts of digestive tract; Z90.710 Acquired absence of both cervix and uterus; Z99.81 Dependence on supplemental oxygen; Z91.040 Latex allergy status; Z91.048 Other nonmedicinal substance allergy status
CPT/HCPCS: 36415; 36600; 71045; 80048; 80053; 82803; 83605; 83735; 83880; 85018; 85025; 87040; 87070; 87081; 93005; 94640; 94760; 96374; 97161; 97530; 99285; G0378; J0696; J1650; J1956; J2930; J7512

== ENCOUNTER 2020-02-24 18:15 | Emergency (ER) | payer MEDICARE, BC ==
[~2020-02-24] VITALS: Ht 162.6 cm; Wt 109.9 kg
[~2020-02-24 18:15] MED LIST changes: -CHOL10002 PO; -DOCU100C41 PO; +GUAI600T45 PO; -HYDR-3972 PO; +LEVO750T46 PO; -PANT40TA4 PO
[2020-02-24 19:35] LABS: BASOPHILS # (AUTO) 0.1 X10'3 (0-0.2); BASOPHILS % (AUTO) 0.5 % (0-1); EOSINOPHILS # (AUTO) 0.1 X10'3 (0-0.9); HEMATOCRIT 33.5 % (35.0-45.0); HEMOGLOBIN 10.9 g/dl (12.0-16.0); LYMPHOCYTES # (AUTO) 1.5 X10'3 (1.1-4.8); LYMPHOCYTES % (AUTO) 11.6 % (21-51); MEAN CORPUSCULAR HEMOGLOBIN 27.9 PG (27.0-31.0); MEAN CORPUSCULAR HGB CONC 32.7 g/dL (33.0-36.5); MEAN CORPUSCULAR VOLUME 85.5 FL (78-98); MEAN PLATELET VOLUME 8.3 FL (7.4-10.4); MONOCYTES # (AUTO) 0.8 X10'3 (0-0.9); NEUTROPHILS # (AUTO) 10.2 X10'3 (1.8-7.7); NEUTROPHILS % (AUTO) 80.9 % (42-75); PLATELET COUNT 178 X10'3 (140-440); RED BLOOD COUNT 3.92 X10'6 (4.20-5.60); RED CELL DISTRIBUTION WIDTH 14.2 % (11.5-14.5); WHITE BLOOD COUNT 12.6 X10'3 (4.5-11.0)
[2020-02-24 19:37] LABS: CLARITY,URINE CLEAR (Clear); COLOR,URINE YELLOW (Yellow); GLUCOSE, URINE 250 mg/dl (Neg); KETONES,URINE NEGATIVE (Neg); LEUKOCYTE ESTERASE ,URINE TRACE (Neg); NITRITES, URINE NEGATIVE (Neg); OCCULT BLOOD,URINE NEGATIVE (Neg); PH,URINE 5.5 (4.8-8.0); PROTEIN,URINE NEGATIVE (Neg); UROBILINOGEN,URINE 0.2 E.U/dL (0.2-1.0)
[2020-02-24 19:38] LABS: UA COLLECTION TYPE VOIDED
[2020-02-24 19:42] LABS: BACTERIA,URINE 1+ /HPF (Neg); RBC,URINE 0-2 /HPF (0-2); SQUAMOUS EPITHELIAL CELL,UR FEW /LPF (FEW); WBC,URINE 0-4 /HPF (0-4)
[2020-02-24 19:49] LABS: ALANINE AMINOTRANSFERASE 18 U/L (12-78); ALBUMIN 3.4 G/DL (3.4-5.0); ALBUMIN/GLOBULIN RATIO 0.9 (1.1-1.5); ALKALINE PHOSPHATASE 125 IU/L (46-116); ANION GAP 5 (8-16); ASPARTATE AMINO TRANSFERASE 13 U/L (10-37); BILIRUBIN,TOTAL 0.4 MG/DL (0.1-1.0); BLOOD UREA NITROGEN 24 MG/DL (7-18); BUN/CREATININE RATIO 20.9 (6.6-38.0); CALCIUM 9.4 MG/DL (8.5-10.1); CHLORIDE 102 MMOL/L (99-107); CREATININE 1.15 MG/DL (0.40-0.90); GLUCOSE 120 MG/DL (70-104); LIPASE 197 U/L (73-393); MAGNESIUM 1.7 MG/DL (1.5-2.4); POTASSIUM 3.5 MMOL/L (3.5-5.1); SODIUM 139 MMOL/L (135-145); TOTAL CARBON DIOXIDE 32.2 MMOL/L (24-32); TOTAL PROTEIN 7.4 G/DL (6.4-8.2); eGFR 46 ML/MIN
[2020-02-24] MEDS ORDERED: iohexol 300mg/ml 100ml inj. ONE (20:29)
--- NOTE | 2020-02-24 22:01 | NUR ---
pts daughter called to see what the update was on her mother, i explained to her that we were waiting for the CT results to come back and if its negative then she is getting discharged. Daughter asked why we were looking at her abd instead of her lumg since she only has one and there is cancer on it and we need to be doing an MRI on her lung to see if the tumor has grown. I explained to her that she needs to see her oncologyst about the cancer and she says that we need to do it here but then nothing can be done about it because she only has one lung. And pt is on palitive care, i then told the daughter to hold on the phone, then i put her on hold to go get the to have her talk to her. When i came back to the phone she had hung up.
[2020-02-24 23:22] VITALS: BP 125/56
--- NOTE | 2020-02-25 02:37 | NUR ---
PTs daughter was contacted and she said to use [facility]. We are awaiting authorization and are not able to get ahold of daughter ...neither is [facility]. So we placed the patient back into a room and she is resting. Transport wait.
--- NOTE | 2020-02-25 04:20 | NUR ---
daughter called back. She is now going to come in and get her mom because she doesn't want to pay [facility].
--- NOTE | 2020-02-25 04:27 | NUR ---
[facility] called and states that the daughter changed her mind again and so now they are on their way to get her.
--- NOTE | 2020-02-25 05:14 | NUR ---
pt left with [facility].
== END 2020-02-24 23:23 | disposition home or self-care (01) ==
LOC: ER 18:16
DX: R11.2 Nausea with vomiting, unspecified (principal); R10.32 Left lower quadrant pain; R53.81 Other malaise; R06.02 Shortness of breath; Z20.828 Contact with and (suspected) exposure to other viral communicable diseases; I50.9 Heart failure, unspecified; E78.00 Pure hypercholesterolemia, unspecified; J44.9 Chronic obstructive pulmonary disease, unspecified; M19.90 Unspecified osteoarthritis, unspecified site; G89.29 Other chronic pain; F41.9 Anxiety disorder, unspecified; F32.9 Major depressive disorder, single episode, unspecified; Z85.118 Personal history of other malignant neoplasm of bronchus and lung; Z90.89 Acquired absence of other organs; Z90.710 Acquired absence of both cervix and uterus; Z98.890 Other specified postprocedural states; Z91.040 Latex allergy status; Z88.8 Allergy status to other drugs, medicaments and biological substances; Z79.2 Long term (current) use of antibiotics; Z79.899 Other long term (current) drug therapy
CPT/HCPCS: 36415; 71045; 74177; 80053; 81001; 83605; 83690; 83735; 84145; 85025; 87040; 87088; 87635; 93005; 99285; C9803; Q9967

== ENCOUNTER 2020-02-25 22:44 | Inpatient (IN) | payer MEDICARE, BC ==
[~2020-02-25] VITALS: Ht 160 cm; Wt 100.0 kg
--- NOTE | 2020-02-25 23:03 | NUR ---
X RAY AT BEDSIDE
[2020-02-25 23:13] LABS: BASOPHILS % (AUTO) 0.3 % (0-1); EOSINOPHILS # (AUTO) 0.1 X10'3 (0-0.9); EOSINOPHILS % (AUTO) 0.7 % (0-6); HEMATOCRIT 32.8 % (35.0-45.0); HEMOGLOBIN 10.8 g/dl (12.0-16.0); LYMPHOCYTES # (AUTO) 1.3 X10'3 (1.1-4.8); MEAN CORPUSCULAR HEMOGLOBIN 28.2 PG (27.0-31.0); MEAN CORPUSCULAR HGB CONC 32.7 g/dL (33.0-36.5); MEAN CORPUSCULAR VOLUME 86.3 FL (78-98); MONOCYTES # (AUTO) 0.8 X10'3 (0-0.9); MONOCYTES % (AUTO) 7.1 % (2-12); NEUTROPHILS # (AUTO) 8.9 X10'3 (1.8-7.7); NEUTROPHILS % (AUTO) 79.9 % (42-75); PLATELET COUNT 172 X10'3 (140-440); RED BLOOD COUNT 3.81 X10'6 (4.20-5.60); RED CELL DISTRIBUTION WIDTH 14.3 % (11.5-14.5); WHITE BLOOD COUNT 11.1 X10'3 (4.5-11.0)
[2020-02-25 23:29] LABS: ALANINE AMINOTRANSFERASE 16 U/L (12-78); ALBUMIN/GLOBULIN RATIO 0.7 (1.1-1.5); ALKALINE PHOSPHATASE 117 IU/L (46-116); ANION GAP 8 (8-16); ASPARTATE AMINO TRANSFERASE 16 U/L (10-37); BILIRUBIN,TOTAL 0.4 MG/DL (0.1-1.0); BLOOD UREA NITROGEN 27 MG/DL (7-18); BUN/CREATININE RATIO 20.5 (6.6-38.0); CALCIUM 9.1 MG/DL (8.5-10.1); CHLORIDE 100 MMOL/L (99-107); CREATININE 1.32 MG/DL (0.40-0.90); GLUCOSE 116 MG/DL (70-104); POTASSIUM 3.5 MMOL/L (3.5-5.1); SODIUM 139 MMOL/L (135-145); TOTAL CARBON DIOXIDE 31.1 MMOL/L (24-32); TOTAL PROTEIN 7.5 G/DL (6.4-8.2); eGFR 39 ML/MIN
[2020-02-25 23:36] LABS: TROPONIN I < 0.04 NG/ML (0.0-0.05)
--- NOTE | 2020-02-25 23:57 | NUR ---
BREAKING NIRMALA HOWARD FOR BREAK- WILL CONTINUE TO MONITOR.
[2020-02-26] MEDS ORDERED: CefTRIAXone inj 2,000 MG in normal saline 100ml IV soln 100 ML IV ONE (00:20)
[2020-02-26] MEDS ORDERED: HYDROcodone/acetaminophen 5mg/325mg tablet PO PRN (01:00)
[2020-02-26] MEDS ORDERED: magnesium 4gm in 100ml NS 100 ML IV PRN (01:00)
[2020-02-26] MEDS ORDERED: potassium Cl 20 mEq SR tablet PO PRN ×2 (01:00)
[2020-02-26] MEDS ORDERED: azithromycin/NS 500mg/250ml 250 ML IV ONE (01:00)
[2020-02-26] MEDS ORDERED: docusate sod 100mg capsule PO PRN (01:00)
[2020-02-26] MEDS ORDERED: ondansetron/PF 4mg/2ml inj IV PRN (01:00)
[2020-02-26] MEDS ORDERED: acetaminophen 325mg tablet PO PRN ×2 (01:00)
[2020-02-26] MEDS ORDERED: potassium CL 10mEq/100ml bag 100 ML IV PRN ×2 (01:00)
[2020-02-26] MEDS ORDERED: magnesium 2GM in 50ml NS 50 ML IV PRN (01:00)
[2020-02-26] MEDS ORDERED: ipratropium/albuterol 3ml nebule NEB PRN (01:00)
[2020-02-26] MEDS ORDERED: LEVO500T89 PO (01:08)
[2020-02-26] MEDS ORDERED: GUAI600T45 PO (01:08)
[2020-02-26] MEDS ORDERED: POTA20TA19 PO (01:14)
[2020-02-26] MEDS ORDERED: FURO80TA3 PO (01:14)
[2020-02-26] MEDS ORDERED: IPRA3AMP31 NEB (01:17)
[2020-02-26] MEDS ORDERED: ACET-3067 PO (01:17)
[2020-02-26] MEDS ORDERED: ERGO400C PO (01:19)
[2020-02-26] MEDS: normal saline 1000ml 1,000 ML IV SCH ×3 (01:27→18:00)
--- NOTE | 2020-02-26 01:45 | NUR ---
SRINIVASA BERMAN TO PAGE RT FOR BLOOD GASES
[2020-02-26 02:56] LABS: ABG OXYGEN SATURATION 95.4 % (94-97); ABG PCO2 (T) 43.9 mmHg (32.0-45.0); ABG PO2 (T) 86.2 mmHg (75.0-100.0); ALLEN'S TEST POSITIVE; FCOHb 0.3 % (0.0-3.9); FLOW 6 L/min; FMetHb 0.3 % (0.0-1.5); FO2Hb 94.8 % (94-97); PATIENT TEMPERATURE 37.1
[2020-02-26] MEDS: HYDROcodone/acetaminophen 10/325mg tab PO PRN ×3 (03:09→19:54)
[2020-02-26 03:21] VITALS: BP 105/43
--- NOTE | 2020-02-26 06:00 | NUR ---
Patient in room [facility]. I have received report from LEE Harrison and had the opportunity to ask questions and assume patient care.
--- NOTE | 2020-02-26 06:26 | NUR ---
Problems reprioritized. Patient report given, questions answered & plan of care reviewed with Musyamilka RN.
[2020-02-26] MEDS: K and/or MAG REPLACEMENT MC SCH ×2 (06:56→19:50)
[2020-02-26] MEDS: cholecalciferol (vitamin D) 400 unit tablet PO SCH (08:25)
[2020-02-26] MEDS: methylPREDNISolone sod succ/PF 40mg inj. IV SCH ×3 (08:25→23:31)
[2020-02-26] MEDS: furosemide 40mg tablet PO SCH (08:26)
[2020-02-26] MEDS: enoxaparin 40mg/0.4ml syringe SQ SCH (08:26)
[2020-02-26] MEDS: guaiFENesin ER 600mg tablet PO SCH ×2 (08:26→19:54)
[2020-02-26] MEDS: FLUoxetine 20mg capsule PO SCH (08:26)
[2020-02-26] MEDS: piperacillin/tazo 3.375gm/50ml 50 ML IV SCH ×3 (08:27→23:33)
[2020-02-26 09:16] VITALS: BP 104/41
[2020-02-26 12:00] VITALS: BP 109/43
[2020-02-26 18:00] VITALS: BP 120/70
--- NOTE | 2020-02-26 18:13 | NUR ---
Problems reprioritized. Patient report given, questions answered & plan of care reviewed with LEE Harrison.
--- NOTE | 2020-02-26 18:27 | NUR ---
Patient in room [facility]. I have received report from DALI HOWARD and had the opportunity to ask questions and assume patient care.
[2020-02-26] MEDS: lactobacillus rhamnosus 10,000 MMU CELLS/CAPSULE PO SCH (19:53)
[2020-02-26] MEDS: latanoprost 0.005% 2.5ml ophthalmic drops EACHEYE SCH (22:43)
[2020-02-26] MEDS: traZODone 150mg tablet PO SCH (22:43)
[2020-02-26] MEDS: pravastatin 40mg tablet PO SCH (22:43)
[2020-02-27 00:36] VITALS: BP 118/47
[2020-02-27 05:45] LABS: BASOPHILS % (AUTO) 0 % (0-1); EOSINOPHILS % (AUTO) 0 % (0-6); HEMATOCRIT 29.6 % (35.0-45.0); HEMOGLOBIN 9.8 g/dl (12.0-16.0); LYMPHOCYTES # (AUTO) 1.3 X10'3 (1.1-4.8); LYMPHOCYTES % (AUTO) 22.4 % (21-51); MEAN CORPUSCULAR HEMOGLOBIN 28.3 PG (27.0-31.0); MEAN CORPUSCULAR VOLUME 85.7 FL (78-98); MEAN PLATELET VOLUME 8.8 FL (7.4-10.4); MONOCYTES # (AUTO) 0.1 X10'3 (0-0.9); MONOCYTES % (AUTO) 2.5 % (2-12); NEUTROPHILS # (AUTO) 4.2 X10'3 (1.8-7.7); NEUTROPHILS % (AUTO) 75.1 % (42-75); PLATELET COUNT 171 X10'3 (140-440); RED BLOOD COUNT 3.45 X10'6 (4.20-5.60); RED CELL DISTRIBUTION WIDTH 14.1 % (11.5-14.5); WHITE BLOOD COUNT 5.6 X10'3 (4.5-11.0)
[2020-02-27 06:04] LABS: ALANINE AMINOTRANSFERASE 18 U/L (12-78); ALBUMIN 2.5 G/DL (3.4-5.0); ALBUMIN/GLOBULIN RATIO 0.7 (1.1-1.5); ALKALINE PHOSPHATASE 100 IU/L (46-116); ANION GAP 5 (8-16); ASPARTATE AMINO TRANSFERASE 16 U/L (10-37); BILIRUBIN,TOTAL 0.2 MG/DL (0.1-1.0); BLOOD UREA NITROGEN 30 MG/DL (7-18); BUN/CREATININE RATIO 24.6 (6.6-38.0); CALCIUM 8.7 MG/DL (8.5-10.1); CHLORIDE 104 MMOL/L (99-107); CREATININE 1.22 MG/DL (0.40-0.90); GLUCOSE 194 MG/DL (70-104); MAGNESIUM 1.8 MG/DL (1.5-2.4); POTASSIUM 3.9 MMOL/L (3.5-5.1); SODIUM 139 MMOL/L (135-145); TOTAL CARBON DIOXIDE 29.6 MMOL/L (24-32); TOTAL PROTEIN 6.3 G/DL (6.4-8.2); eGFR 43 ML/MIN
--- NOTE | 2020-02-27 06:06 | NUR ---
Problems reprioritized. Patient report given, questions answered & plan of care reviewed with BRANDI HOWARD. Patient resting and no apparent distress.
--- NOTE | 2020-02-27 06:31 | NUR ---
Patient in room [facility]. I have received report from Christy HOWARD and had the opportunity to ask questions and assume patient care.
[2020-02-27 07:52] VITALS: BP 112/32
[2020-02-27] MEDS: K and/or MAG REPLACEMENT MC SCH ×2 (08:00→20:00)
[2020-02-27 08:01] VITALS: BP 115/38
[2020-02-27] MEDS: methylPREDNISolone sod succ/PF 40mg inj. IV SCH (08:31)
[2020-02-27] MEDS: cholecalciferol (vitamin D) 400 unit tablet PO SCH (08:31)
[2020-02-27] MEDS: FLUoxetine 20mg capsule PO SCH (08:31)
[2020-02-27] MEDS: lactobacillus rhamnosus 10,000 MMU CELLS/CAPSULE PO SCH ×2 (08:31→20:31)
[2020-02-27] MEDS: piperacillin/tazo 3.375gm/50ml 50 ML IV SCH ×2 (08:31→17:57)
[2020-02-27] MEDS: HYDROcodone/acetaminophen 10/325mg tab PO PRN ×2 (08:31→14:37)
[2020-02-27] MEDS: guaiFENesin ER 600mg tablet PO SCH ×2 (08:31→20:31)
[2020-02-27] MEDS: enoxaparin 40mg/0.4ml syringe SQ SCH (08:32)
[2020-02-27 08:45] VITALS: BP 126/52
[2020-02-27] MEDS: furosemide 40mg tablet PO SCH (08:49)
[2020-02-27 11:00] VITALS: BP_SYST 123; BP_SYST 142; BP_DIAS 66; BP_DIAS 85
--- NOTE | 2020-02-27 17:46 | NUR ---
PAGER ID: [phone] MESSAGE: Surgical Flr Isabel HOWARD ext [phone]. RE: Luana Owens. Patient's daughter Sheila has questions about patient condition. Please call her [phone] she wanted to talk to you
[2020-02-27] MEDS: predniSONE 20 mg tablet PO SCH (17:57)
[2020-02-27 18:00] VITALS: BP 107/35
[2020-02-27] MEDS: levalbuterol 0.63mg/3ml nebule IH SCH (19:41)
--- NOTE | 2020-02-27 20:20 | NUR ---
Patient in room [facility]. I have received report from Isabel HOWARD and had the opportunity to ask questions and assume patient care.
[2020-02-27] MEDS: traZODone 150mg tablet PO SCH (22:54)
[2020-02-27] MEDS: latanoprost 0.005% 2.5ml ophthalmic drops EACHEYE SCH (22:55)
[2020-02-27] MEDS: pravastatin 40mg tablet PO SCH (22:55)
[2020-02-28] VITALS: BP 131/53
[2020-02-28] MEDS: piperacillin/tazo 3.375gm/50ml 50 ML IV SCH ×2 (00:17→08:18)
[2020-02-28 05:28] LABS: BASOPHILS % (AUTO) 0.1 % (0-1); EOSINOPHILS % (AUTO) 0 % (0-6); HEMATOCRIT 30.1 % (35.0-45.0); HEMOGLOBIN 9.8 g/dl (12.0-16.0); LYMPHOCYTES # (AUTO) 1.3 X10'3 (1.1-4.8); LYMPHOCYTES % (AUTO) 15.5 % (21-51); MEAN CORPUSCULAR HEMOGLOBIN 27.9 PG (27.0-31.0); MEAN CORPUSCULAR HGB CONC 32.7 g/dL (33.0-36.5); MEAN CORPUSCULAR VOLUME 85.3 FL (78-98); MEAN PLATELET VOLUME 9.1 FL (7.4-10.4); MONOCYTES # (AUTO) 0.3 X10'3 (0-0.9); MONOCYTES % (AUTO) 3.1 % (2-12); NEUTROPHILS # (AUTO) 6.7 X10'3 (1.8-7.7); NEUTROPHILS % (AUTO) 81.3 % (42-75); PLATELET COUNT 207 X10'3 (140-440); RED BLOOD COUNT 3.53 X10'6 (4.20-5.60); RED CELL DISTRIBUTION WIDTH 13.5 % (11.5-14.5); WHITE BLOOD COUNT 8.2 X10'3 (4.5-11.0)
[2020-02-28 05:34] LABS: ALANINE AMINOTRANSFERASE 20 U/L (12-78); ALBUMIN 2.6 G/DL (3.4-5.0); ALBUMIN/GLOBULIN RATIO 0.7 (1.1-1.5); ALKALINE PHOSPHATASE 93 IU/L (46-116); ANION GAP 8 (8-16); ASPARTATE AMINO TRANSFERASE 13 U/L (10-37); BILIRUBIN,TOTAL 0.2 MG/DL (0.1-1.0); BLOOD UREA NITROGEN 37 MG/DL (7-18); BUN/CREATININE RATIO 31.4 (6.6-38.0); CHLORIDE 103 MMOL/L (99-107); CREATININE 1.18 MG/DL (0.40-0.90); GLUCOSE 131 MG/DL (70-104); MAGNESIUM 1.9 MG/DL (1.5-2.4); POTASSIUM 3.4 MMOL/L (3.5-5.1); SODIUM 140 MMOL/L (135-145); TOTAL CARBON DIOXIDE 29.3 MMOL/L (24-32); TOTAL PROTEIN 6.1 G/DL (6.4-8.2); eGFR 44 ML/MIN
--- NOTE | 2020-02-28 06:22 | NUR ---
Problems reprioritized. Patient report given, questions answered & plan of care reviewed with CAMILO RN.
--- NOTE | 2020-02-28 07:00 | NUR ---
Patient in room [facility]. I have received report from MADELEINE HOWARD and had the opportunity to ask questions and assume patient care.
[2020-02-28 07:48] VITALS: BP 134/46
[2020-02-28] MEDS: K and/or MAG REPLACEMENT MC SCH (08:00)
[2020-02-28] MEDS: guaiFENesin ER 600mg tablet PO SCH (08:16)
[2020-02-28] MEDS: lactobacillus rhamnosus 10,000 MMU CELLS/CAPSULE PO SCH (08:16)
[2020-02-28] MEDS: furosemide 40mg tablet PO SCH (08:17)
[2020-02-28] MEDS: predniSONE 20 mg tablet PO SCH (08:17)
[2020-02-28] MEDS: FLUoxetine 20mg capsule PO SCH (08:17)
[2020-02-28] MEDS: enoxaparin 40mg/0.4ml syringe SQ SCH (08:19)
[2020-02-28] MEDS: cholecalciferol (vitamin D) 400 unit tablet PO SCH (08:23)
[2020-02-28] MEDS: levalbuterol 0.63mg/3ml nebule IH SCH (09:13)
[2020-02-28] MEDS ORDERED: AMOX-422 PO (10:42)
[2020-02-28] MEDS ORDERED: AZIT500T2 PO (10:42)
[2020-02-28] MEDS ORDERED: PRED10TA PO (13:01)
--- NOTE | 2020-02-28 14:30 | NUR ---
Patient discharged into care of family and Home Health. Patient left with two new medication Rx, and was educated on these medication. Patient IV taken out at time of discharge and canula was whole and intact upon inspection. Patient left with all of the belongings at discharge and was wheeled to the lobby in wheel chair patient left at her normal baseline.
--- NOTE | 2020-03-01 14:31 | NUR ---
Case Management DC follow up: spoke to pt & pt daughter, Nathaniel Sosa via telephone. s/p: SOB, PNE, RLL, Dx prior: R Lung CA. L lung total pneumonectomy. Reports: pt still weak, in shower, shower using shower chair at this time. Pt daughter c/o pt "should have stayed longer" pt O2 24/7 5L at rest between 88-91% appears to be pt baseline. Pt DC'd w/ABT Augmentin, Zithromax, prednisone. STOP Levaquin. O2 up 7L on exertion, et al taking shower. [facility] visits pt 2x wk at this time. Per pt imtiaz, pt is non-compliant r/t using IS & flutter valve. Educated pt & pt daughter risk & benefits of non-compliance. pt still bruised and sore on backside r/t fall at home 02/26/20. Reports at ER 02/24/20, tested for COVID/negative, pt stated emesis several times, had low grade fever, according to pt & pt daughter, waited for 2 hrs for ride, urinated herself , eventually placed in a room to rest in between conversations with daughter, & transportation service, per notes was suggested by pt daughter, then declined, then okayed. Pt transported home at aprox 5AM 02/25/20. Pt called PCP over phone received ABT, pt took one. Fell at home, daughter called EMS, pt transported back to [facility] ER at 1045pm 02/26/20. admitted. Dx PNE. DCd 02/28/20 1430, back to baseline. Denies: acute/continuous CP, emergent SOB, resp distress, N/V, ESTES, blurry vision, vertigo, syncope episodes, emergent general pain, abd tenderness/distension, bladder pain, dysuria, polyuria, hematuria, retention, constipation, diarrhea, fever, unexplained bleeding, bruising. focus appeared to be about the cost of transportation, ($140) as pt daughter states, she had taken sleeping pills and unable to pick pt up because she was sure she would have been admitted on the first visit. Pt daughter states pt has seen a manager safe who declined for patient further treatment, pt is on palliative care. Pt nor pt Daughter mentioned at the most previous visit, if they had followed up w/pt oncologist as advised on the first visit to see if cancer mass has grown. Verbalizes understanding of s/s that warrant 9-11/ER visit for further evaluation. Pt daughter refuses to acknowledge that pt had a safe DC and threatened to get an community assistant. Verbalizes understanding of new Rx and why prescribed, resumes current Rx, non-complient w/ btx per pt daughter. constant redirection to focus on pt current status during this phone call. pt did not appear to be SOB during conversation, encouraged and educated pt to follow DC instructions. no ase r/t polypharmacy. Acknowledges need to schedule/keep follow up appts w/ PCP/[facility] for follow ups, new/different ABT or medications. Needs met, questions answered at DC.
== END 2020-02-28 15:13 | disposition home health service (06) | DRG 193 ==
LOC: ER 22:45 → ED HOLD 02-26 00:56 → UNDOADMIN 02-26 00:56 → SUR 3N 02-26 02:24 → ED HOLD 02-26 02:24
PROVIDERS: ADMIT Family Medicine; ATTEND Family Medicine
DX: J18.9 Pneumonia, unspecified organism (principal); J96.21 Acute and chronic respiratory failure with hypoxia; J44.1 Chronic obstructive pulmonary disease with (acute) exacerbation; J44.0 Chronic obstructive pulmonary disease with (acute) lower respiratory infection; I50.32 Chronic diastolic (congestive) heart failure; N17.9 Acute kidney failure, unspecified; M54.9 Dorsalgia, unspecified; G89.29 Other chronic pain; N18.3 Chronic kidney disease, stage 3 (moderate); E87.6 Hypokalemia; H40.9 Unspecified glaucoma; E78.5 Hyperlipidemia, unspecified; D64.9 Anemia, unspecified; E78.00 Pure hypercholesterolemia, unspecified; M19.90 Unspecified osteoarthritis, unspecified site; F32.9 Major depressive disorder, single episode, unspecified; F41.9 Anxiety disorder, unspecified; Z88.8 Allergy status to other drugs, medicaments and biological substances; Z91.040 Latex allergy status; Z90.710 Acquired absence of both cervix and uterus; Z90.49 Acquired absence of other specified parts of digestive tract; Z85.118 Personal history of other malignant neoplasm of bronchus and lung; Z82.49 Family history of ischemic heart disease and other diseases of the circulatory system; Z82.5 Family history of asthma and other chronic lower respiratory diseases; Z87.891 Personal history of nicotine dependence; Z90.2 Acquired absence of lung [part of]; Z99.81 Dependence on supplemental oxygen
CPT/HCPCS: 36415; 36600; 71045; 80053; 82803; 83735; 83880; 84145; 84484; 85018; 85025; 87070; 87081; 93005; 93306; 94640; 94760; 96374; 97116; 97161; 97530; 99285; G0378; J0456; J0696; J1650; J2405; J2543; J2920; J7030; J7512; J7614

== ENCOUNTER 2020-06-10 09:31 | Inpatient (IN) | payer MEDICARE, BC ==
[~2020-06-10] VITALS: Ht 160 cm; Wt 100.0 kg
[~2020-06-10 09:31] MED LIST changes: +ACET-3067 PO; +ERGO400C PO; -FURO-149 PO; +FURO80TA3 PO; +IPRA3AMP31 NEB; -LEVO750T46 PO; -POTA20TA10 PO; +POTA20TA19 PO; +PRED10TA PO
[2020-06-10] MEDS ORDERED: acetaminophen 325mg tablet PO ONE (10:15)
[2020-06-10] MEDS ORDERED: ketorolac trometh. 30mg/ml inj. IV ONE (10:15)
[2020-06-10 11:05] LABS: BASOPHILS % (AUTO) 0.3 % (0-1); EOSINOPHILS # (AUTO) 0.7 X10'3 (0-0.9); EOSINOPHILS % (AUTO) 8.2 % (0-6); HEMATOCRIT 32.9 % (35.0-45.0); HEMOGLOBIN 10.6 g/dl (12.0-16.0); LYMPHOCYTES # (AUTO) 1.9 X10'3 (1.1-4.8); LYMPHOCYTES % (AUTO) 22.7 % (21-51); MEAN CORPUSCULAR HEMOGLOBIN 27.9 PG (27.0-31.0); MEAN CORPUSCULAR HGB CONC 32.3 g/dL (33.0-36.5); MEAN CORPUSCULAR VOLUME 86.4 FL (78-98); MEAN PLATELET VOLUME 8.1 FL (7.4-10.4); MONOCYTES # (AUTO) 0.6 X10'3 (0-0.9); MONOCYTES % (AUTO) 6.7 % (2-12); NEUTROPHILS # (AUTO) 5.2 X10'3 (1.8-7.7); NEUTROPHILS % (AUTO) 62.1 % (42-75); PLATELET COUNT 191 X10'3 (140-440); RED BLOOD COUNT 3.81 X10'6 (4.20-5.60); RED CELL DISTRIBUTION WIDTH 14.3 % (11.5-14.5); WHITE BLOOD COUNT 8.3 X10'3 (4.5-11.0)
--- NOTE | 2020-06-10 11:32 | NUR ---
VASCULAR STUDY DONE AT THE BEDSIDE
[2020-06-10 11:43] LABS: ANION GAP 10 (8-16); BILIRUBIN,TOTAL 0.3 MG/DL (0.1-1.0); BLOOD UREA NITROGEN 23 MG/DL (7-18); BUN/CREATININE RATIO 18.3 (6.6-38.0); CALCIUM 9.5 MG/DL (8.5-10.1); CHLORIDE 105 MMOL/L (99-107); CREATININE 1.26 MG/DL (0.40-0.90); GLUCOSE 120 MG/DL (70-104); MAGNESIUM 1.9 MG/DL (1.5-2.4); POTASSIUM 3.5 MMOL/L (3.5-5.1); SODIUM 145 MMOL/L (135-145); TOTAL CARBON DIOXIDE 30.2 MMOL/L (24-32); eGFR 41 ML/MIN
[2020-06-10 11:44] LABS: ALANINE AMINOTRANSFERASE 19 U/L (12-78); ALBUMIN 3.2 G/DL (3.4-5.0); ALBUMIN/GLOBULIN RATIO 0.8 (1.1-1.5); ALKALINE PHOSPHATASE 115 IU/L (46-116); ASPARTATE AMINO TRANSFERASE 15 U/L (10-37); TOTAL PROTEIN 7.1 G/DL (6.4-8.2)
[2020-06-10] MEDS ORDERED: HYDROcodone/acetaminophen 5mg/325mg tablet PO ONE (12:10)
[2020-06-10] MEDS ORDERED: HYDR-3965 PO (13:57)
[2020-06-10] MEDS ORDERED: PANT40TA54 PO (14:21)
[2020-06-10] MEDS ORDERED: FLUT1BLS3 PO (14:21)
[2020-06-10] MEDS ORDERED: PRAV20TA4 PO (14:21)
[2020-06-10] MEDS ORDERED: FLUO40CA PO (14:21)
[2020-06-10] MEDS ORDERED: TRAZ150T78 PO (14:21)
[2020-06-10] MEDS ORDERED: ACET-3067 PO (14:23)
[2020-06-10] MEDS ORDERED: IPRA3AMP31 IH (14:24)
--- NOTE | 2020-06-10 14:46 | NUR ---
TC FROM CASE MANAGEMENT RE: PATIENT REQUEST FOR ADMISSION AND REHAB PLACEMENT.
--- NOTE | 2020-06-10 16:20 | NUR ---
TELEPHONE CALL TO [facility] TO INITIATE REPORT. MESSAGE LEFT WITH PHONE DEMOGRAPHER AND APS WORKER WILL CALL BACK FOR MORE INFORMATION.
[2020-06-10] MEDS ORDERED: magnesium hydroxide 30ml (MOM) UD suspension PO PRN (16:45)
[2020-06-10] MEDS ORDERED: LORazepam 2 mg/ml vial IV PRN (16:45)
[2020-06-10] MEDS ORDERED: HYDROcodone/acetaminophen 5mg/325mg tablet PO PRN (16:45)
[2020-06-10] MEDS ORDERED: magnesium Cl slow-release 64mg tablet PO PRN (16:45)
[2020-06-10] MEDS ORDERED: magnesium 2GM in 50ml NS 50 ML IV PRN (16:45)
[2020-06-10] MEDS ORDERED: potassium Cl 20 mEq SR tablet PO PRN ×2 (16:45)
[2020-06-10] MEDS ORDERED: magnesium 4gm in 100ml NS 100 ML IV PRN (16:45)
[2020-06-10] MEDS ORDERED: acetaminophen 325mg tablet PO PRN ×2 (16:45)
[2020-06-10] MEDS ORDERED: potassium CL 10mEq/100ml bag 100 ML IV PRN ×2 (16:45)
[2020-06-10] MEDS ORDERED: ondansetron/PF 4mg/2ml inj IV PRN (16:45)
[2020-06-10] MEDS ORDERED: mag hydrox/Alum hydrox/simeth 30ml oral suspension PO PRN (16:45)
[2020-06-10] MEDS ORDERED: HYDROmorphone inj. 0.5 MG/0.5 ML DISP.SYRIN IV PRN (16:45)
[2020-06-10] MEDS ORDERED: acetaminophen w/codeine (60MG) #4 tablet PO PRN (16:50)
[2020-06-10] MEDS ORDERED: ipratropium/albuterol 3ml nebule IH PRN (16:50)
--- NOTE | 2020-06-10 17:14 | NUR ---
DRISS WITH YOKASTA FROM [facility]. VERBAL REPORT GIVEN. WRITTEN REPORT WILL BE FAXED TO [facility] AT FAX # [phone]
[2020-06-10 18:00] VITALS: BP 113/56
[2020-06-10] MEDS: K and/or MAG REPLACEMENT MC SCH (20:00)
[2020-06-10] MEDS: budesonide 0.5mg/2ml UD nebule IH SCH (20:00)
[2020-06-10] MEDS: albuterol 2.5 MG/3 ML nebule NEB SCH (20:00)
[2020-06-10] MEDS: potassium Cl 20mEq in NS 1,000 ML IV SCH (20:33)
[2020-06-10] MEDS ORDERED: temazepam 15mg capsule PO PRN (21:00)
[2020-06-10] MEDS: HYDROcodone/acetaminophen 10/325mg tab PO PRN (22:21)
[2020-06-10] MEDS: latanoprost 0.005% 2.5ml ophthalmic drops EACHEYE SCH (22:21)
[2020-06-10] MEDS: traZODone 150mg tablet PO SCH (22:21)
[2020-06-11] VITALS: BP 106/50
[2020-06-11] MEDS: albuterol 2.5 MG/3 ML nebule NEB SCH ×4 (02:00→20:00)
[2020-06-11] MEDS: potassium Cl 20mEq in NS 1,000 ML IV SCH ×3 (02:45→22:45)
[2020-06-11 05:14] LABS: ALBUMIN 2.7 G/DL (3.4-5.0); ANION GAP 6 (8-16); BLOOD UREA NITROGEN 27 MG/DL (7-18); BUN/CREATININE RATIO 22.3 (6.6-38.0); CHLORIDE 110 MMOL/L (99-107); CREATININE 1.21 MG/DL (0.40-0.90); GLUCOSE 88 MG/DL (70-104); POTASSIUM 3.9 MMOL/L (3.5-5.1); SODIUM 145 MMOL/L (135-145); TOTAL CARBON DIOXIDE 29.4 MMOL/L (24-32); eGFR 43 ML/MIN
[2020-06-11 06:24] LABS: HEMOGLOBIN 9.8 g/dl (12.0-16.0); MEAN CORPUSCULAR HEMOGLOBIN 29.1 PG (27.0-31.0); MEAN CORPUSCULAR HGB CONC 33.7 g/dL (33.0-36.5); MEAN CORPUSCULAR VOLUME 86.6 FL (78-98); MEAN PLATELET VOLUME 8.3 FL (7.4-10.4); PLATELET COUNT 168 X10'3 (140-440); RED BLOOD COUNT 3.35 X10'6 (4.20-5.60); RED CELL DISTRIBUTION WIDTH 14.3 % (11.5-14.5); WHITE BLOOD COUNT 6.3 X10'3 (4.5-11.0)
[2020-06-11 07:00] VITALS: BP 104/46
[2020-06-11] MEDS: K and/or MAG REPLACEMENT MC SCH ×2 (07:43→20:00)
[2020-06-11] MEDS: atorvastatin 20mg tablet PO SCH (07:44)
[2020-06-11] MEDS: pantoprazole 40mg Tablet.DR PO SCH (07:44)
[2020-06-11] MEDS: enoxaparin 40mg/0.4ml syringe SUBCUT SCH (07:44)
[2020-06-11] MEDS: furosemide 40mg tablet PO SCH (07:45)
[2020-06-11] MEDS: potassium Cl 20 mEq SR tablet PO SCH (07:45)
[2020-06-11] MEDS: FLUoxetine 20mg capsule PO SCH (07:45)
[2020-06-11] MEDS: HYDROcodone/acetaminophen 10/325mg tab PO PRN ×3 (07:46→23:38)
[2020-06-11] MEDS: budesonide 0.5mg/2ml UD nebule IH SCH ×2 (08:00→20:00)
[2020-06-11] MEDS ORDERED: non-formulary drug (Fluticasone/Vilanterol (Breo Ellipta 200-25 Mcg INH) 1 PUFF) PO SCH (08:00)
[2020-06-11 11:45] VITALS: BP 119/44
--- NOTE | 2020-06-11 11:55 | NUR ---
CALLED MRI. THEY STATES NO PLANS TO TAKE PT DOWN SOON. PT. NEEDS A GURNEY - DUE TO STAFFING SOME THINGS NEED TO GET WORKED OUT. PT NOTIFIED THIS RN THAT THEY WANTED TO HOLD PT UNTIL MRI TAKEN.
[2020-06-11 18:00] VITALS: BP 118/44
--- NOTE | 2020-06-11 18:13 | NUR ---
GAVE REPORT TO CANDELARIO HOWARD.
[2020-06-11] MEDS ORDERED: ketorolac tromethamine 15mg/ml inj. IM SCH (20:00)
[2020-06-11] MEDS: traZODone 150mg tablet PO SCH (21:56)
[2020-06-11] MEDS: latanoprost 0.005% 2.5ml ophthalmic drops EACHEYE SCH (21:57)
[2020-06-11] MEDS: ketorolac tromethamine 15mg/ml inj. IV SCH (23:39)
[2020-06-12] VITALS: BP 110/49
[2020-06-12] MEDS: albuterol 2.5 MG/3 ML nebule NEB SCH ×4 (02:00→20:00)
--- NOTE | 2020-06-12 05:17 | NUR ---
Student Medication Administration: For all medication-pass time frames, all medication were reviewed, dispensed, administered and documented per hospital policy by Brittany José Nurse. Student documentation: I have reviewed and agree with all interventions, assessments performed and documented by Brittany José.
[2020-06-12 05:38] LABS: ALBUMIN 2.7 G/DL (3.4-5.0); ANION GAP 6 (8-16); BLOOD UREA NITROGEN 23 MG/DL (7-18); BUN/CREATININE RATIO 19.3 (6.6-38.0); CALCIUM 8.7 MG/DL (8.5-10.1); CHLORIDE 107 MMOL/L (99-107); CREATININE 1.19 MG/DL (0.40-0.90); GLUCOSE 83 MG/DL (70-104); MAGNESIUM 1.7 MG/DL (1.5-2.4); POTASSIUM 4.2 MMOL/L (3.5-5.1); SODIUM 143 MMOL/L (135-145); TOTAL CARBON DIOXIDE 29.9 MMOL/L (24-32); eGFR 44 ML/MIN
[2020-06-12 05:46] LABS: HEMATOCRIT 28.5 % (35.0-45.0); HEMOGLOBIN 9.3 g/dl (12.0-16.0); MEAN CORPUSCULAR HEMOGLOBIN 28.3 PG (27.0-31.0); MEAN CORPUSCULAR HGB CONC 32.8 g/dL (33.0-36.5); MEAN CORPUSCULAR VOLUME 86.2 FL (78-98); MEAN PLATELET VOLUME 8.4 FL (7.4-10.4); PLATELET COUNT 167 X10'3 (140-440); WHITE BLOOD COUNT 7.3 X10'3 (4.5-11.0)
--- NOTE | 2020-06-12 05:48 | NUR ---
bladder scan. pt shown 256mL.
[2020-06-12 07:02] VITALS: BP 111/40
[2020-06-12] MEDS: ketorolac tromethamine 15mg/ml inj. IV SCH ×3 (07:49→23:51)
[2020-06-12] MEDS: potassium Cl 20 mEq SR tablet PO SCH (07:49)
[2020-06-12] MEDS: FLUoxetine 20mg capsule PO SCH (07:49)
[2020-06-12] MEDS: HYDROcodone/acetaminophen 10/325mg tab PO PRN ×3 (07:50→23:55)
[2020-06-12] MEDS: atorvastatin 20mg tablet PO SCH (07:50)
[2020-06-12] MEDS: K and/or MAG REPLACEMENT MC SCH ×2 (07:51→20:00)
[2020-06-12] MEDS: enoxaparin 40mg/0.4ml syringe SUBCUT SCH (07:52)
[2020-06-12] MEDS: pantoprazole 40mg Tablet.DR PO SCH (07:52)
--- NOTE | 2020-06-12 07:59 | NUR ---
PAGER ID: [phone] MESSAGE: Luana Owens [id number]. Anuric overnight. hold Lasix? on 100ml/hr h2o and 20 meqk. k 4.2. taking k supplements. ok to straight cath for clean UA? Madisyn [phone]
[2020-06-12] MEDS: budesonide 0.5mg/2ml UD nebule IH SCH ×2 (08:00→20:00)
[2020-06-12] MEDS: furosemide 40mg tablet PO SCH (10:41)
[2020-06-12] MEDS: normal saline 1000ml 1,000 ML IV SCH ×2 (10:42→20:20)
[2020-06-12 11:00] VITALS: BP 114/46
--- NOTE | 2020-06-12 18:12 | NUR ---
GAVE REPORT TO SUZANNA HOWARD.
[2020-06-12 19:30] VITALS: BP 130/41
[2020-06-12] MEDS: latanoprost 0.005% 2.5ml ophthalmic drops EACHEYE SCH (23:13)
[2020-06-12] MEDS: traZODone 150mg tablet PO SCH (23:13)
[2020-06-13] VITALS: BP 107/44
[2020-06-13] MEDS: albuterol 2.5 MG/3 ML nebule NEB SCH ×2 (02:00→19:50)
[2020-06-13 05:32] LABS: ALBUMIN 2.5 G/DL (3.4-5.0); ANION GAP 4 (8-16); BLOOD UREA NITROGEN 21 MG/DL (7-18); BUN/CREATININE RATIO 18.4 (6.6-38.0); CALCIUM 8.9 MG/DL (8.5-10.1); CHLORIDE 109 MMOL/L (99-107); CREATININE 1.14 MG/DL (0.40-0.90); GLUCOSE 93 MG/DL (70-104); HEMATOCRIT 27.3 % (35.0-45.0); MAGNESIUM 1.7 MG/DL (1.5-2.4); MEAN CORPUSCULAR HEMOGLOBIN 28.4 PG (27.0-31.0); MEAN CORPUSCULAR VOLUME 86.3 FL (78-98); MEAN PLATELET VOLUME 8.2 FL (7.4-10.4); PLATELET COUNT 162 X10'3 (140-440); POTASSIUM 3.9 MMOL/L (3.5-5.1); RED BLOOD COUNT 3.16 X10'6 (4.20-5.60); RED CELL DISTRIBUTION WIDTH 14.2 % (11.5-14.5); SODIUM 141 MMOL/L (135-145); TOTAL CARBON DIOXIDE 27.7 MMOL/L (24-32); WHITE BLOOD COUNT 5.9 X10'3 (4.5-11.0); eGFR 46 ML/MIN
[2020-06-13] MEDS: normal saline 1000ml 1,000 ML IV SCH ×3 (06:00→20:56)
--- NOTE | 2020-06-13 07:01 | NUR ---
Problems reprioritized. Patient report given, questions answered & plan of care reviewed with Madisyn. Addendum: 06/13/20 at 0702 by Bob Louise RN Amended: Links added.
[2020-06-13 07:22] VITALS: BP 119/63
[2020-06-13] MEDS: K and/or MAG REPLACEMENT MC SCH ×2 (08:00→20:00)
--- NOTE | 2020-06-13 09:57 | NUR ---
PAGER ID: [phone] MESSAGE: ALMAZTAMERA HOYT [id number] SPITTING UP SMALL AMOUNT OF CLAUDIA RED BLOOD. STATES THIS HAS NOT HAPPENED BEFORE. CAN I STILL GIVE PO MEDS? PLAN FOR MASS? JARON [phone]
[2020-06-13] MEDS: potassium Cl 20 mEq SR tablet PO SCH (10:43)
[2020-06-13] MEDS: pantoprazole 40mg Tablet.DR PO SCH (10:43)
[2020-06-13] MEDS: atorvastatin 20mg tablet PO SCH (10:43)
[2020-06-13] MEDS: ketorolac tromethamine 15mg/ml inj. IV SCH ×2 (10:44→17:03)
[2020-06-13] MEDS: FLUoxetine 20mg capsule PO SCH (10:44)
[2020-06-13] MEDS: furosemide 40mg tablet PO SCH (10:44)
[2020-06-13] MEDS: HYDROcodone/acetaminophen 10/325mg tab PO PRN ×2 (10:45→17:03)
--- NOTE | 2020-06-13 11:34 | NUR ---
called back about page. CT chest no contrast ordered r/t kidney function. Candelario Espino.
[2020-06-13 11:46] VITALS: BP 127/47
--- NOTE | 2020-06-13 15:24 | NUR ---
Called pt's daughter. daughter requesting that pt go to [facility] if possible. [facility] already accepted pt. and pt supposed to transfer. Daughter states she is ok with [facility] if [facility] cant accept her. CM notified.
--- NOTE | 2020-06-13 18:43 | NUR ---
Gave report to Sharan HOWARD.
[2020-06-13 19:00] VITALS: BP 102/37
[2020-06-13] MEDS: budesonide 0.5mg/2ml UD nebule IH SCH (19:49)
[2020-06-13] MEDS: latanoprost 0.005% 2.5ml ophthalmic drops EACHEYE SCH (22:58)
[2020-06-13] MEDS: traZODone 150mg tablet PO SCH (22:58)
[2020-06-14] MEDS: ketorolac tromethamine 15mg/ml inj. IV SCH ×2 (00:26→09:05)
[2020-06-14] MEDS: albuterol 2.5 MG/3 ML nebule NEB SCH ×3 (02:00→14:00)
[2020-06-14 05:27] LABS: ALBUMIN 2.5 G/DL (3.4-5.0); ANION GAP 7 (8-16); BLOOD UREA NITROGEN 23 MG/DL (7-18); BUN/CREATININE RATIO 19.5 (6.6-38.0); CALCIUM 8.9 MG/DL (8.5-10.1); CHLORIDE 110 MMOL/L (99-107); CREATININE 1.18 MG/DL (0.40-0.90); GLUCOSE 88 MG/DL (70-104); MAGNESIUM 1.5 MG/DL (1.5-2.4); POTASSIUM 4.3 MMOL/L (3.5-5.1); SODIUM 145 MMOL/L (135-145); TOTAL CARBON DIOXIDE 27.9 MMOL/L (24-32); eGFR 44 ML/MIN
[2020-06-14 05:33] LABS: HEMATOCRIT 27.8 % (35.0-45.0); HEMOGLOBIN 9.1 g/dl (12.0-16.0); MEAN CORPUSCULAR HEMOGLOBIN 28.2 PG (27.0-31.0); MEAN CORPUSCULAR HGB CONC 32.9 g/dL (33.0-36.5); MEAN CORPUSCULAR VOLUME 85.8 FL (78-98); MEAN PLATELET VOLUME 8.4 FL (7.4-10.4); PLATELET COUNT 167 X10'3 (140-440); RED BLOOD COUNT 3.24 X10'6 (4.20-5.60); WHITE BLOOD COUNT 6.1 X10'3 (4.5-11.0)
--- NOTE | 2020-06-14 06:27 | NUR ---
Problems reprioritized. Patient report given, questions answered & plan of care reviewed with CAMILO. Addendum: 06/14/20 at 0628 by Bob Louise RN Amended: Links added.
[2020-06-14 07:00] VITALS: BP 110/45
--- NOTE | 2020-06-14 07:05 | NUR ---
Patient in room [facility]. I have received report from Sharan HOWARD and had the opportunity to ask questions and assume patient care.
[2020-06-14] MEDS: normal saline 1000ml 1,000 ML IV SCH (07:11)
[2020-06-14] MEDS: budesonide 0.5mg/2ml UD nebule IH SCH (08:00)
[2020-06-14] MEDS: K and/or MAG REPLACEMENT MC SCH (08:00)
[2020-06-14] MEDS: pantoprazole 40mg Tablet.DR PO SCH (08:59)
[2020-06-14] MEDS: FLUoxetine 20mg capsule PO SCH (08:59)
[2020-06-14] MEDS: atorvastatin 20mg tablet PO SCH (09:00)
[2020-06-14] MEDS: potassium Cl 20 mEq SR tablet PO SCH (09:01)
[2020-06-14] MEDS: furosemide 40mg tablet PO SCH (09:01)
[2020-06-14] MEDS: HYDROcodone/acetaminophen 10/325mg tab PO PRN (14:30)
--- NOTE | 2020-06-14 15:30 | NUR ---
Patient report called to receiving facility and Lawanda took report. Patient IV taken out at this time. patient transportation was 1 hour late. Patient left with all belongings at discharge.
== END 2020-06-14 15:32 | DRG 563 ==
LOC: ER 09:32 → ED HOLD 16:42 → SUR 3N 19:10
PROVIDERS: ADMIT Family Medicine; ATTEND Family Medicine
DX: S92.334A Nondisplaced fracture of third metatarsal bone, right foot, initial encounter for closed fracture (principal); I50.32 Chronic diastolic (congestive) heart failure; T74.01XA Adult neglect or abandonment, confirmed, initial encounter; Z66 Do not resuscitate; E66.01 Morbid (severe) obesity due to excess calories; E78.00 Pure hypercholesterolemia, unspecified; E78.5 Hyperlipidemia, unspecified; F32.9 Major depressive disorder, single episode, unspecified; J43.9 Emphysema, unspecified; F41.9 Anxiety disorder, unspecified; G89.29 Other chronic pain; M19.90 Unspecified osteoarthritis, unspecified site; M54.9 Dorsalgia, unspecified; N18.9 Chronic kidney disease, unspecified; M25.562 Pain in left knee; W01.0XXA Fall on same level from slipping, tripping and stumbling without subsequent striking against object, initial encounter; D64.9 Anemia, unspecified; Z85.118 Personal history of other malignant neoplasm of bronchus and lung; Z87.891 Personal history of nicotine dependence; Z90.49 Acquired absence of other specified parts of digestive tract; Z90.710 Acquired absence of both cervix and uterus; Z99.81 Dependence on supplemental oxygen; Z68.39 Body mass index [BMI] 39.0-39.9, adult; Z88.8 Allergy status to other drugs, medicaments and biological substances; Z91.040 Latex allergy status; Z82.49 Family history of ischemic heart disease and other diseases of the circulatory system; Z82.5 Family history of asthma and other chronic lower respiratory diseases; Y93.89 Activity, other specified; Y92.89 Other specified places as the place of occurrence of the external cause; Y99.8 Other external cause status
CPT/HCPCS: 36415; 71045; 71250; 73560; 73590; 73610; 73630; 73721; 80048; 80053; 83735; 83880; 84484; 85025; 85027; 87081; 93005; 93970; 94760; 96374; 97161; 97530; 97760; 99285; G0378; J1650; J1885; J3480; J7030